=== PATIENT | female | born 1935 | race Caucasian/White ===

== ENCOUNTER 2016-12-02 16:09 | Inpatient (IN) | payer MEDICARE, MEDICAID ==
[~2016-12-02] VITALS: Ht 177.8 cm; Wt 93.1 kg
[~2016-12-02 16:09] MED LIST: ASP81TEC PO; CALC1CAP26 PO; Cefepime Inj 1,000 MG in Dextrose 5% Minibag Plus 50 ML IV ONE; DONE10TA21 PO; GLU500 PO; HALO1TAB PO; LOSA25TA21 PO; METO50TA PO; MULT-1007 PO; PRAV20TA2 PO; SENN15TA35 PO; TYL325 PO; [UNRECOGNIZED DRUG - CODE] PO
--- NOTE | 2016-12-02 16:22 | ED.REPORT ---
HPI-Altered Mental Status Date of Service Dec 02, 2016 ED Provider: Dr. Nair Pt is a 81 y/o female anticoagulated on Warfarin w/ a hx of PE, a-fib, severe systolic CHF with last EF 10-15%, dementia, NIDDM, HTN, CKD 3, prior hypercarbic hypoxic respiratory failure, presenting to the ED via EMS from [facility] due to decreased level of consciousness onset about 2 hours prior to arrival. 2 hours ago, staff noticed that the patient had a decreased LOC where she would open her eyes and look around but not respond appropriately. Shortly prior to arrival, she was rechecked by staff and found to have a GCS of 3 with agonal respirations. Upon arrival of EMS, she remained GCS of 3, with agonal respirations, and HR of 30 bpm. She was given 0.5 mg Atropine which raised and has sustained her HR in the mid 60s. She was intubated on route with 20 mg Etomidate and 100 mg succinylcholine. She did not resist the attempts to intubate or make any purposeful movements prior to sedatives being given but EMS decided to administer them to ensure sedation afterwards. She never received CPR. Of note, her code status was initially DNR and DNI but at some point that was crossed out and it was decided that she should be changed to FULL CODE. Nursing Notes Stated Complaint: STAT MEDICAL Nursing Notes Reviewed: Yes Allergies: Coded Allergies: No Known Allergies (Unverified Allergy, Unknown, 12/02/16) Scheduled Acetaminphen-Expunged Drug, Do Not Renew! (Acetaminphen-Expunged Drug, Do Not Renew!) 325 Mg Tablet 650 MG PO Q8 Aspirin-Expunged Drug, Do Not Renew! (Aspirin EC-Expunged Drug, Do Not Renew!) 81 Mg Tablet 81 MG PO DAILY DO NOT CRUSH Azithromycin 250 mg Prepack 6 Tabs (Zithromax 250 mg Prepack #6 Tabs) 250 Mg Tablet 250 MG PO DAILY FOR 4 DAYS Maycol Carb/Vitamin D3-Expunged, Do Not Renew! (CALCIUM 600/VIT D-Expunged, Do Not Renew!) 1 Each Capsule 1 EACH PO BID Donepezil-Expunged Drug, Do Not Renew! (Donepezil-Expunged Drug, Do Not Renew!) 10 Mg Tab.rapdis 10 MG PO AM Haloperidol-Expunged Drug, Do Not Renew! (Haldol-Expunged Drug, Do Not Renew!) 1 Mg Tab 0.5 MG PO HS Losartan-Expunged Drug, Do Not Renew! (Losartan-Expunged Drug, Do Not Renew!) 25 Mg Tablet 25 MG PO AM Metformin-Expunged Drug, Do Not Renew! (Metformin-Expunged Drug, Do Not Renew!) 500 Mg Tablet 500 MG PO DAILY Metoprolol Tart-Expunged Drug, Do Not Renew! (Metoprolol Tart-Expunged Drug, Do Not Renew!) 50 Mg Tablet 50 MG PO BID Multivitamin (Multi-Vitamin Daily) 1 Each Tablet 1 EACH PO AM Pravastatin-Expunged Drug, Do Not Renew! (Pravastatin-Expunged Drug, Do Not Renew!) 20 Mg Tablet 20 MG PO HS Sennosides-Expunged Drug, Do Not Renew! (Senna Soft-Expunged Drug, Do Not Renew! ) 15 Mg Tablet 8.6 MG PO AM General Time Seen by MD: 16:19 Chief Complaint Decreased responsiveness Hx Obtained From: EMS Arrived By: Ambulance Sudden in Onset?: No Onset Occurred: 1 - 4 hours ago Symptom Duration: Since onset Progression since Onset: Rapidly worsening Past Medical History Past Medical History Notes: ONLY HISTORY IS OBTAINED VIA OLD RECORDS PATIENT IS INTUBATED AND SEDATED Past Medical History Anticoagulated on Warfarin Atrial fibrillation Hx pulmonary embolism - January 2012 Severe systolic CHF with EF of 10-15% Type 2 diabetes Hypertension Chronic kidney disease stage 3 Hx small pericardial effusion History of hypercarbic hypoxic respiratory failure Hx pneumonia Hx UTI Past Surgical History Appendectomy. Hernia repair. Social History Other Social History: Lives in [facility] Unable to Obtain History Family history, Smoking history, Social history, Occupation, Ambulatory status Unable to Obtain Due to: AMS Review of Systems Unable to Obtain ROS Mental status, Intubated Neurologic: Reports: Change LOC Physical Exam Initial Vital Signs See RN paper sheet. Initial VS: Reviewed, Vital signs abnormal GENERAL: Comatose, GCS of 3, intubated, critically ill Head / Eyes: Atraumatic, Normocephalic, PERRL (3 mm bilat) Neck: Atraumatic, Supple Respiratory / Chest: Breath sounds NL, Breath sounds = bilat, No rales, No rhonchi, No wheezing, No stridor, No chest wall deformity Intubated Cardiovascular: Heart rate NL, Regular rhythm, Heart sounds NL, No murmurs NEURO: Comatose, GCS of 3 ENT: Airway patent, Mucous membranes moist Abdomen: Atraumatic, Soft Skin: Atraumatic, No rash Interpretation & Diagnostics Lab Results Interpretation Result Diagram: 12/02/16 1650 Test 12/02/16 16:50 12/02/16 17:34 Sodium Level 144mEq/L (134-144) Potassium Level 6.8mEq/L (3.5-5.2) Chloride Level 108mEq/L (97-108) Carbon Dioxide Level 13mmol/L (18-29) Blood Urea Nitrogen 138mg/dL (8-27) Creatinine 3.73mg/dL (0.57-1.00) Estimat Glomerular Filtration Rate 17mL/min (>59) Glucose Level 241mg/dL (60-99) Lactic Acid Level 4.9mmol/L (0.4-2.0) Calcium Level 8.2mg/dL (8.5-10.1) Total Bilirubin 1.0mg/dL (0.0-1.2) Aspartate Amino Transf (AST/SGOT) 210U/L (0-50) Alanine Aminotransferase (ALT/SGPT) 317U/L (0-32) Alkaline Phosphatase 116U/L (25-165) Total Protein 6.2g/dL (6.4-8.4) Albumin 3.5g/dL (3.4-5.0) Urine Color Yellow (YELLOW) Urine Appearance Hazy (CLEAR,HAZY) Urine pH 5.5 (5.0-8.0) Urine Specific [place] 1.020 (1.003-1.035) Urine Protein 30mg/dL (NEG,TRACE) Urine Glucose (UA) Negativemg/dL (NEGATIVE) Urine Ketones Negativemg/dL (NEGATIVE) Urine Occult Blood Small (NEGATIVE) Urine Nitrite Negative (NEGATIVE) Urine Bilirubin Negative (NEGATIVE) Urine Urobilinogen Normalmg/dL (NORMAL) Urine Leukocyte Esterase Large (NEGATIVE) Urine RBC 0-2/hpf (0-2) Urine WBC 11-50/hpf (0-5) Urine Epithelial Cells None/hpf (NONE-MOD) Urine Crystals None seen (NONE SEEN) Urine Bacteria Many/hpf (NONE-FEW) Urine Hyaline Casts None/lpf (NONE) Urine Granular Casts None seen (NONE SEEN) Urine Waxy Casts None seen (NONE SEEN) Urine Red Blood Cell Casts None seen (NONE SEEN) Urine White Blood Cell Casts None seen (NONE SEEN) Urine Mucus None seen (None Seen) Urine Trichomonas None seen (NONE SEEN) Urine Yeast None (NONE SEEN) Urinalysis Comment None Urine Culture Reflexed Indicated ECG Interpretation ECG Interpretation: Junctional rhythm rate 58 No prior available for comparison Time: 16:54 Interpreted by: ED physician Normal ECG Interpretation: No acute ischemic changes ABG Interpretation ABG Interpretation: DateTimeAnalyzed 16:57:00 -_ pH ____7.320 - 7.350 7.450 pCO2 ___27.1__ -mmHg 35.0 45.0 pO2 186 -mmHg 69.0 116 HCO3- ___13.6__ -mmol/L 22.0 26.0 ABE __-11.2__ -mmol/L -2.0 2.0 tHb ____5.7__ -g/dL O2Hb ___96.6__ -% COHb ____1.8__ -% MetHb ____1.0__ -% sO2 ___99.4__ -% FIO2 ___50.0__ -% PRVC 480 - PEEP ____5.0__ -cmH2O Set_RR ___18.0__ -b/min Exam Performed by: [facility] pract Exam Interpreted by: ED physician X-Ray Chest Interpretation Chest Xray Interpretation: IMPRESSION: Endotracheal tube is in expected position. Decreased lung volumes. Dictated by: Rl Mccollum M.D. on 12/02/2016 at 16:42 Approved by: Rl Mccollum M.D. on 12/02/2016 at 16:44 View: Portable, 1 view Interpretation / Wet Read by: Interpret - Radiologist CT Head Interpretation Pending Study: Head CT no contrast Interpretation / Wet Read by: Interpret - Radiologist Re-Eval/Medical Decision Med Decision/Clinical Course Within the past 10 minutes, 1809, I began to receive laboratory results including a very low hematocrit and a significantly elevated potassium in the setting of acute renal failure. Therapies commensurate with those findings have been initiated. CCU bed status is obtained and hospitalist is consulted and accepts admission. Source of Hx: Old records, EMS, Vp Production Re-Evaluation/Progress : Time of Eval: 16:32 Re-Evaluation/Progress Note: RN reports seeing short runs of V-fib on monitor although there is suspicion for movement artifact. Will review monitor history. Consultation : Referral / Consult Name: Heather Thacker DO Consulted With: Hospitalist Call Returned at: 18:15 College Coach: Will see patient, Accepts admit Counseled Regarding: Diagnosis, Lab results, Need for admission Patient Discharge & Departure Impression: Primary Impression: Respiratory failure Chronicity: acute Respiratory failure complication: unspecified whether with hypoxia or hypercapnia Qualified Code: J96.00 - Acute respiratory failure , unspecified whether with hypoxia or hypercapnia Additional Impressions: Metabolic acidosis Coma Coma depth: Joaquin coma 3-8 Coma timing: in the field (EMT or ambulance) Qualified Code: R40.2431 - Joaquin coma scale score 3-8, in the field [EMT or ambulance] Hyperkalemia Severe anemia Urinary tract infection Disposition: ADMITTED TO HOSPITAL Discharge Condition All VS Reviewed: Yes Condition: Critical Referrals: Stefan Avelar DO (PCP) Crit Care Except Billable Proc Time Spent: 30-74 minutes Services Performed: Patient management by me, Time spent at bedside, Reviewing test results, Reviewing imaging, Discussing patient care, Documentation in record Critical Care Notes: 45 minutes Scribe Attestation Portions of this note were transcribed by Justin Mckeon. I, Dr. Nair personally performed the history, physical exam and medical decision-making; I reviewed and confirmed the accuracy of the information in the transcribed note. copies to: Stefan Avelar Kirk H MD Dec 02, 2016 16:22 JUSTIN MCKEON Dec 02, 2016 16:28
--- NOTE | 2016-12-02 16:45 | DRSVH ---
PROCEDURE: X-RAY CHEST ONE VIEW, PORTABLE ([id number]) INDICATIONS: 81 year-old female with dyspnea and bradycardia. TECHNIQUE: One view of the chest was acquired. COMPARISON: [facility], , CHEST 1VW (PORTABLE), 02/24/2012, 10:46. [facility], CR, CHEST 1VW (PORTABLE), 02/22/2012, 7:22. [facility], , CHEST 1VW (PORTABLE), 02/20/2012, 6:45. FINDINGS: Surgical changes and devices: Endotracheal tube is present, with tip 5 cm above the cassidy. Cutaneous pacer pad is also present. Lungs and pleura: No pleural effusions or pneumothorax. Lung volumes are decreased, with bronchovasc ular crowding. Mediastinum: Mediastinal contours appear normal. Heart size is normal. Bones and chest wall: No suspicious bony lesions. Overlying soft tissues appear unremarkable. IMPRESSION: Endotracheal tube is in expected position. Decreased lung volumes. Dictated by: Rl Mccollum M.D. on 12/02/2016 at 16:42 Approved by: Rl Mccollum M.D. on 12/02/2016 at 16:44
--- NOTE | 2016-12-02 17:03 | ABG ---
DateTimeAnalyzed 16:57:00 -_ pH ____7.320 - 7.350 7.450 pCO2 ___27.1__ -mmHg 35.0 45.0 pO2 186 -mmHg 69.0 116 HCO3- ___13.6__ -mmol/L 22.0 26.0 ABE __-11.2__ -mmol/L -2.0 2.0 tHb ____5.7__ -g/dL O2Hb ___96.6__ -% COHb ____1.8__ -% MetHb ____1.0__ -% sO2 ___99.4__ -% FIO2 ___50.0__ -% PRVC 480 - PEEP ____5.0__ -cmH2O Set_RR ___18.0__ -b/min Drawn By JJ - Date/Time Notified____ 17:03:00 -_ Spontaneous_RR ___18.0__ -b/min Oxygen Device 1 VENTILATOR - Notified By JJ - Notified Whom DR STEVEN - B 756 -mmHg tO2 ____8.2__ -Vol% Aureliano test _Positive -
[2016-12-02] MEDS ORDERED: 0.9% Sodium Chloride 1,000 ML IV ONE (18:00)
[2016-12-02] MEDS ORDERED: Piperacillin-Tazo 3.375 Gm Inj 3.375 GM in Dextrose 5% Minibag Plus 50 ML IV ONE (18:00)
[2016-12-02 18:03] LABS: APPEARANCE,URINE HAZY (CLEAR,HAZY); COLOR,URINE YELLOW (YELLOW); OCCULT BLOOD,URINE SMALL (NEGATIVE); PH,URINE 5.5 (5.0-8.0); UROBILINOGEN,URINE NORMAL (NORMAL)
[2016-12-02] MEDS ORDERED: Insulin Human REGular-Omnicell 100 Unit/mL IV ONE (18:10)
[2016-12-02] MEDS ORDERED: Calcium GLUCOnate 10% (Gm) 1 Gm/10 mL Inj IVPUSH PRN (18:10)
[2016-12-02 18:25] LABS: BASOPHILS % (AUTO) 0.1 % (0-3); EOSINOPHILS % (AUTO) 0 % (0-5); MONOCYTES % (AUTO) 6.5 % (4-12); Mean Corpuscular Hemoglobin 22.4 pg (27.0-35.0); Mean Corpuscular Volume 80.7 fL (81-100); NEUTROPHILS % (AUTO) 84.6 % (40-74); Platelet Count 273 bil/L (150-400)
--- NOTE | 2016-12-02 18:32 | DRSVH ---
PROCEDURE: CT BRAIN WITHOUT CONTRAST ([id number]) INDICATIONS: altered LOC, COMA TECHNIQUE: Noncontrast 4.5 mm thick angled axial sections acquired from the foramen magnum to the vertex, with c oronal reformats. COMPARISON: [facility], CT, BRAIN W/O CONTRAST, 02/18/2012, 17:54. FINDINGS: Image quality: Excellent. CSF spaces: Basal cisterns are patent. No extra-axial fluid collections. The ventricles are symmet alea in size and shape. Brain: No intracranial bleeds or masses. There is cerebral volume loss for age, with resultant vent ricular and sulcal prominence. There are periventricular and deep white matter chronic small vessel ischemic changes. There is intracranial internal carotid artery atherosclerosis. Skull and face: Calvarium and visualized facial bones appear intact, without suspicious lesions. Sinuses: Visualized sinuses and mastoids are clear. IMPRESSION: Moderate microvascular atherosclerotic change in the deep white matter of each hemispher e but no acute disease is seen. No global climate change analyst time. Dictated by: Terry Lemus M.D. on 12/02/2016 at 18:30 Approved by: Terry Lemus M.D. on 12/02/2016 at 18:31
[2016-12-02] MEDS ORDERED: TIOT18CA3 IH (18:34)
[2016-12-02] MEDS ORDERED: WARF3TAB7 PO (18:34)
[2016-12-02] MEDS ORDERED: NA P133E23 RC (18:34)
[2016-12-02] MEDS ORDERED: WARF4TAB6 PO (18:34)
[2016-12-02] MEDS ORDERED: ACET325C PO (18:34)
[2016-12-02] MEDS ORDERED: MAGN400O4 PO (18:34)
[2016-12-02] MEDS ORDERED: WARF7.5T4 PO (18:34)
[2016-12-02] MEDS ORDERED: SPIR25TA3 PO (18:34)
[2016-12-02] MEDS ORDERED: ACET500C49 PO (18:34)
[2016-12-02] MEDS ORDERED: METF500T4 PO (18:34)
[2016-12-02] MEDS ORDERED: FURO-128 PO (18:34)
[2016-12-02] MEDS ORDERED: DONE10TA42 PO (18:34)
[2016-12-02] MEDS ORDERED: PRAV20TA2 PO (18:34)
[2016-12-02] MEDS ORDERED: CARV3.122 PO (18:34)
[2016-12-02] MEDS ORDERED: LOSA25TA21 PO (18:34)
[2016-12-02] MEDS ORDERED: DIGO125T73 PO (18:34)
[2016-12-02] MEDS ORDERED: BISA10SU61 RC (18:34)
[2016-12-02 18:38] LABS: INR 4.4 ratio
--- NOTE | 2016-12-02 18:39 | DRSVH ---
PROCEDURE: X-RAY CHEST ONE VIEW, PORTABLE ([id number]) INDICATIONS: OG PLACEMENT TECHNIQUE: One view of the chest was acquired. COMPARISON: None. FINDINGS: Surgical changes and devices: The gastric tube is in normal position. Bones and chest wall: No suspicious bony lesions. Overlying soft tissues appear unremarkable. IMPRESSION: Gastric tube in normal position. Dictated by: Terry Lemus M.D. on 12/02/2016 at 18:37 Approved by: Terry Lemus M.D. on 12/02/2016 at 18:37
[2016-12-02] MEDS ORDERED: Calcium GLUCOnate 10% 1 Gm/50 mL NS IV ONE ×2 (18:40)
[2016-12-02] MEDS ORDERED: Ondansetron 2 mg/mL 2 mL Inj IVPUSH PRN (18:50)
[2016-12-02] MEDS ORDERED: Senna-Docusate 8.6-50 mg Tablet PO PRN (18:50)
[2016-12-02] MEDS ORDERED: Polyethylene Glycol (PEG) 17 Gm Powder PO PRN (18:50)
[2016-12-02] MEDS ORDERED: Alum-Mag Hydrox-Simeth 30 mL Suspension PO PRN (18:50)
[2016-12-02 19:07] LABS: TROPONIN T 0.084 ug/L (0.0-0.011)
[2016-12-02] MEDS ORDERED: Propofol Inj 1,000,000 MCG in IV Premix 1 EACH IV SCH (19:07)
[2016-12-02] MEDS ORDERED: fentaNYL 2,500 mCg/250 mL 2,500 MCG in IV Premix 1 EACH IV SCH (19:07)
[2016-12-02] MEDS ORDERED: Propofol 10,000 mCg/mL 100 mL Inj ONE (19:26)
[2016-12-02 19:45] VITALS: BP 137/93; O2SAT 94
[2016-12-02 19:50] VITALS: BP 122/54; PULSE 72; RESP 20; O2SAT 98
[2016-12-02 20:18] LABS: BASOPHILS % (AUTO) 0.1 % (0-3); EOSINOPHILS % (AUTO) 0.1 % (0-5); MONOCYTES % (AUTO) 7.1 % (4-12); Mean Corpuscular Hemoglobin 22.7 pg (27.0-35.0); Mean Corpuscular Volume 80.5 fL (81-100); NEUTROPHILS % (AUTO) 79.4 % (40-74); Platelet Count 225 bil/L (150-400)
[2016-12-02 20:19] VITALS: BP 103/85; PULSE 53; RESP 18
[2016-12-02] MEDS ORDERED: DOBUTamine 500 mg/250 D5W 500,000 MCG in IV Premix 1 EACH IV SCH (20:39)
[2016-12-02] MEDS ORDERED: DOPamine 800 mg/250 mL D5W Premix IV ONE (20:42)
[2016-12-02] MEDS ORDERED: Pantoprazole 4 mg/mL 10 mL Inj IVPUSH SCH (20:51)
[2016-12-02] MEDS ORDERED: Phytonadione (Adult) 10 MG in Dextrose 5%-Pha MIX 50 ML IV ONE (21:00)
[2016-12-02] MEDS ORDERED: Albuterol 2.5 mg/3 mL Inhalation Solution NEB ONE (21:00)
[2016-12-02] MEDS ORDERED: Phytonadione (Adult) 5 MG in 0.9% Sodium Chloride-Pha MIX 50 ML IV ONE (21:05)
[2016-12-02] MEDS ORDERED: DOPamine 800 mg/250 mL D5W 800,000 MCG in IV Premix 1 EACH IV SCH (21:10)
--- NOTE | 2016-12-02 21:28 | DRSVH ---
PROCEDURE: X-RAY CHEST ONE VIEW, PORTABLE ([id number]) INDICATIONS: line placement TECHNIQUE: One view of the chest was acquired. COMPARISON: None. FINDINGS: Surgical changes and devices: Nasogastric tube in normal position. The patient appears rotated left zamarripa. An endotracheal tube appears in normal position, considering rotation. Right internal jugular central line crosses slightly from right to left but likely within the normal position considering p atient rotation. Lungs and pleura: No pleural effusions or pneumothorax. Lungs are abnormal, with dense pneumonia ri ght mid and lower lung and retrocardiac left lower lobe dense pneumonia. Mediastinum: Mediastinal contours appear normal. Heart size is normal. Bones and chest wall: No suspicious bony lesions. Overlying soft tissues appear unremarkable. IMPRESSION: Bilateral pneumonia right greater than left, lines and tubes appear in normal position c onsidering patient rotation leftward. Dictated by: Terry Lemus M.D. on 12/02/2016 at 21:25 Approved by: Terry Lemus M.D. on 12/02/2016 at 21:27
[2016-12-02] MEDS: Propofol Inj 1,000,000 MCG in IV Premix 1 EACH IV SCH (21:29)
--- NOTE | 2016-12-02 21:29 | ABG ---
DateTimeAnalyzed 21:22:00 -_ pH ____7.384 - 7.350 7.450 pCO2 ___26.5__ -mmHg 35.0 45.0 pO2 159 -mmHg 69.0 116 HCO3- ___15.5__ -mmol/L 22.0 26.0 ABE ___-8.5__ -mmol/L -2.0 2.0 tHb ____5.9__ -g/dL O2Hb ___97.1__ -% COHb ____1.7__ -% MetHb ____0.9__ -% sO2 ___99.7__ -% FIO2 ___50.0__ -% PEEP ____5.0__ -cmH2O Set_RR ___18.0__ -b/min Vt __480.0__ -L Drawn By LT - Date/Time Notified____ 21:29:00 -_ Notified By LT - Notified Whom LT - B 757 -mmHg tO2 ____8.4__ -Vol% Aureliano test _Positive -
--- NOTE | 2016-12-02 21:40 | PCM.HPMED ---
Subjective Date of Service Dec 02, 2016 Primary Provider: Admitting Physician: Serena Benz DO Primary Care Physician: Stefan Avelar DO Attending Physician: Serena Benz DO Admit Status: From the Emergency Department Chief Complaint: Decreased responsiveness History of Present Illness: Reina Styles is a 81 year old lady with a history of dementia, Afib chronically anticoagulated on warfarin, DM type 2, CKD3, HTN, pulmonary embolism , and systolic heart failure with an EF of 10-15% five years ago per our records who presented to the ED from [facility] because she was becoming unarousable. due to decreased level of consciousness onset about 2 hours prior to arrival. 2 hours ago, staff noticed that the patient had a decreased LOC where she would open her eyes and look around but not respond appropriately. Shortly prior to arrival, she was rechecked by staff and found to have a GCS of 3 with agonal respirations. Upon arrival of EMS, she remained GCS of 3, with agonal respirations, and HR of 30 bpm. She was given 0.5 mg Atropine which raised and has sustained her HR in the mid 60s. She was intubated on route with 20 mg Etomidate and 100 mg succinylcholine. She did not resist the attempts to intubate or make any purposeful movements prior to sedatives being given but EMS decided to administer them to ensure sedation afterwards. She never received CPR. Of note, her code status was initially DNR and DNI but at some point that was crossed out and it was decided that she should be changed to FULL CODE. In the ED, Labs: sodium 144, potassium 6.8, chloride 108, bicarb 13, BUN 138, creatinine 3.78, serum glucose 241, calcium 8.2, AST/ALT 210/317, total protein 6.2, lactic acid 4.9. UA large leukocyte esterase, negative nitrite, 11-50 wbc, many bacteria, culture pending. INR 4.40. PT 48.5. urine culture, blood culture pending. ECG Interpretation: Junctional rhythm rate 58No prior available for comparison. No acute ischemic changes ABG: pH 7.32, pCO2 27.1, pO2 186, bicarb 13.6, sO2 99.4%. PRVC: FiO2 50%, peep 5 , RR 18, TV 480 Review of Systems: Unable to perform complete review of systems secondary to patient condition. Allergies Coded Allergies: No Known Allergies (Unverified Allergy, Unknown, 12/03/16) Home Medications Review of [facility] records, most recent office visit 09/05/16: Acetaminophen ER 650mg PO Q8 prn Aspirin 81mg PO daily Carvedilol 3.125mg PO BID Coumadin 2mg PO daily with 5mg tablet = 7mg Coumadin 5mg PO 2 times per week with 2mg tablet = 7mg Coumadin 6mg PO 5x per week Cozaar 25mg PO daily Digoxin 125mcg PO daily Denepezil 10mg PI Qhs Furosemide 40mg PO daily Metformin hydrochloride 500mg PO daily Pravastatin 20mg PO daily Spiriva with HandiHaler 18mcg inhale 1 capsule daily Spironolactone 12.5mg PO daily PMH Hypertension Dementia Atrial fibrillation anticoagulated on Warfarin Pulmonary embolism - January 2012 Severe systolic CHF with EF of 10-15% Chronic kidney disease stage 3 Type 2 diabetes, non-insulin using Obesity w/concern for untreated sleep apnea noted on admission five years ago History of pericardial effusion History of hypercarbic hypoxic respiratory failure Surgical History Appendectomy Hernia repair Family History Unable to obtain due to patient condition. Social History Hx Alcohol Use: No Hx Substance Use: No Smoking Status: Unknown if Ever Smoker (COPD noted on outpatient records.) Living Arrangement: Jail Facility ([facility]) Exam Vital Signs Vital Signs Date Time Temp Pulse Resp B/P Pulse Ox O2 Delivery O2 Flow Rate FiO2 12/02/16 20:19 36.0 53 18 103/85 12/02/16 19:50 36.8 72 20 122/54 98 Room Air 12/02/16 19:45 76 137/93 94 50 Exam General: Chronically ill-appearing and obese elderly woman intubated and sedated. HEENT: Normocephalic, atraumatic. External ears without defect. PERRLA, scleral without icterus, conjunctivae pale. Poor dentition. Tongue, buccal mucosa erythematous with white plaques. Neck: Supple with full range of motion. +JVD. No lymphadenopathy or thyromegaly. Cardiovascular: Irregularly irregular and bradycardic but without murmurs or rubs appreciated. Pulmonary: Intubated/mechanically ventilated. Symmetric chest rise with equal air entry b/l. Lungs sounds diminished throughout and coarse, no wheezing or crackles heard. Abdomen: Bowel tones diminished. Soft, nondistended does not appear tender although this is difficult to assess as patient is sedated. No hepatosplenomegaly or masses appreciated. Extremities: No edema, cyanosis or clubbing. Flattened arch of right foot without ulceration. Skin: Pale with decreased turgor and normal texture. No rash, ulcers, or subcutaneous nodules appreciated. Neurological: Unable to asses due to patient sedation. Pupils are equal, round and reactive to light. Psychiatric: Unable to asses secondary to patient condition. History of dementia. Lab and Diagnostics Labs Laboratory Tests Test 12/02/16 16:50 12/02/16 17:34 12/02/16 20:04 White Blood Count th/mm3 (3.8-10.1) 11.2th/mm3 (3.8-10.1) Corrected White Blood Count 8.8th/mm3 (3.8-10.1) Red Blood Count 2.59mil/mm3 (3.90-5.20) 2.56mil/mm3 (3.90-5.20) Hemoglobin 5.8g/dL (12.0-15.6) 5.8g/dL (12.0-15.6) Hematocrit 20.9% (35.0-46.0) 20.6% (35.0-46.0) Mean Corpuscular Volume 80.7fL (81-100) 80.5fL (81-100) Mean Corpuscular Hemoglobin 22.4pg (27.0-35.0) 22.7pg (27.0-35.0) Mean Corpuscular Hemoglobin Concent 27.8% (32.0-37.0) 28.2% (32.0-37.0) Red Cell Distribution Width 16.8% (12.3-15.4) 16.8% (12.3-15.4) Platelet Count 273bil/L (150-400) 225bil/L (150-400) Neutrophils (%) (Auto) 84.6% (40-74) 79.4% (40-74) Lymphocytes (%) (Auto) 8.5% (14-46) 12.0% (14-46) Monocytes (%) (Auto) 6.5% (4-12) 7.1% (4-12) Eosinophils (%) (Auto) 0% (0-5) 0.1% (0-5) Basophils (%) (Auto) 0.1% (0-3) 0.1% (0-3) Nucleated Red Blood Cells 5/100 WBC (0-24) Prothrombin Time 48.5sec (8.1-12.5) Prothromb Time International Ratio 4.40ratio Sodium Level 144mEq/L (134-144) 145mEq/L (134-144) Potassium Level 6.8mEq/L (3.5-5.2) 5.5mEq/L (3.5-5.2) Chloride Level 108mEq/L (97-108) 108mEq/L (97-108) Carbon Dioxide Level 13mmol/L (18-29) 14mmol/L (18-29) Blood Urea Nitrogen 138mg/dL (8-27) 132mg/dL (8-27) Creatinine 3.73mg/dL (0.57-1.00) 3.39mg/dL (0.57-1.00) Estimat Glomerular Filtration Rate 17mL/min (>59) 19mL/min (>59) Glucose Level 241mg/dL (60-99) 236mg/dL (60-99) Lactic Acid Level 4.9mmol/L (0.4-2.0) 4.6mmol/L (0.4-2.0) Calcium Level 8.2mg/dL (8.5-10.1) 8.5mg/dL (8.5-10.1) Total Bilirubin 1.0mg/dL (0.0-1.2) 0.9mg/dL (0.0-1.2) Aspartate Amino Transf (AST/SGOT) 210U/L (0-50) 309U/L (0-50) Alanine Aminotransferase (ALT/SGPT) 317U/L (0-32) 386U/L (0-32) Alkaline Phosphatase 116U/L (25-165) 115U/L (25-165) Troponin T 0.084ug/L (0.0-0.011) 0.081ug/L (0.0-0.011) Total Protein 6.2g/dL (6.4-8.4) 6.1g/dL (6.4-8.4) Albumin 3.5g/dL (3.4-5.0) 3.6g/dL (3.4-5.0) Urine Color Yellow (YELLOW) Urine Appearance Hazy (CLEAR,HAZY) Urine pH 5.5 (5.0-8.0) Urine Specific [place] 1.020 (1.003-1.035) Urine Protein 30mg/dL (NEG,TRACE) Urine Glucose (UA) Negativemg/dL (NEGATIVE) Urine Ketones Negativemg/dL (NEGATIVE) Urine Occult Blood Small (NEGATIVE) Urine Nitrite Negative (NEGATIVE) Urine Bilirubin Negative (NEGATIVE) Urine Urobilinogen Normalmg/dL (NORMAL) Urine Leukocyte Esterase Large (NEGATIVE) Urine RBC 0-2/hpf (0-2) Urine WBC 11-50/hpf (0-5) Urine Epithelial Cells None/hpf (NONE-MOD) Urine Crystals None seen (NONE SEEN) Urine Bacteria Many/hpf (NONE-FEW) Urine Hyaline Casts None/lpf (NONE) Urine Granular Casts None seen (NONE SEEN) Urine Waxy Casts None seen (NONE SEEN) Urine Red Blood Cell Casts None seen (NONE SEEN) Urine White Blood Cell Casts None seen (NONE SEEN) Urine Mucus None seen (None Seen) Urine Trichomonas None seen (NONE SEEN) Urine Yeast None (NONE SEEN) Urinalysis Comment None Urine Culture Reflexed Indicated Procalcitonin 0.19ng/mL (0.00-0.08) Result Diagram: 12/02/16 1650 12/02/16 1650 Microbiology 12/02/16 Blood Culture- pending 12/02/16 Urine Culture- pending 12/02/16 MRSA screen- pending X-Rays, CTs and MRIs (12/02/16) X-RAY CHEST ONE VIEW, PORTABLE INDICATIONS: 81 year-old female with dyspnea and bradycardia. IMPRESSION: Endotracheal tube is in expected position. Decreased lung volumes. Dictated and approved by: Rl Mccollum M.D. on 12/02/2016 at 16:42 (12/02/16) CT BRAIN WITHOUT CONTRAST INDICATIONS: altered LOC, COMA IMPRESSION: Moderate microvascular atherosclerotic change in the deep white matter of each hemisphere but no acute disease is seen. No changeover operator time. Dictated and approved by: Terry Lemus M.D. on 12/02/2016 at 18:30 (12/02/16) X-RAY CHEST ONE VIEW, PORTABLE INDICATIONS: line placement IMPRESSION: Bilateral pneumonia right greater than left, lines and tubes appear in normal position considering patient rotation leftward. Dictated and approved by: Terry Lemus M.D. on 12/02/2016 at 21:25 Assessment & Plan 81 year-old lady with a history of Afib chronically anticoagulated on warfarin, Shock. Present on admission. Active. -Uncertain etiology. Possibly cardiogenic and/or septic shock. Acute hypercarbic hypoxic respiratory failure. Present on admission. Active. -Uncertain etiology. Patient with history of COPD outpatient records note COPD. -Patient with previous admission 5years ago for acute respiratory failure. Attributed at that time in part to obesity hypoventilation syndrome and untreated sleep apnea. -CO2 retention based on evidence on ABG, most consistent with obesity hypoventilation syndrome. Acute on chronic decompensated heart failure. Present on admission. Active. -Patient with hx of systolic dysfunction. Most recent echocardiogram is five years old (2011) and showed an EF of 10-15%. -Fluid resuscitation initiated for presumed septic shock. Pt received 1L NS. -Currently requiring pressor support with Dopamine. -Held home carvedilol, losartan, digoxin, furosemide and spironolactone for hypotension and bradycardia. -Echocardiogram ordered -Cardiology consulted, discussed initial plan. Will see in am. Recs appreciated Severe anemia, likely acute on chronic. Present on admission. Active. -Uncertain etiology. Possibly due to acute blood loss secondary to GI bleed in setting of CKD stage 3. Patient unconscious at presentation and unable to provide additional history. -No obvious source for bleeding on exam. -Hb 5.8 at presentation, transfused 2units pRBCs -CT abd/pelvis pending -Monitor H/H -Transfusion threshold Hb < 7.0 Acute on chronic kidney disease stage 3. Present on admission. Active. -Likely secondary to diabetes and longstanding hypertension. Creatinine at presentation 3.71 with unknown baseline. Previous admission 5 years ago with BUN /Cr of -Consulted nephrology and discussed initial plan. Will see in am. Recs appreciated Hyperkalemia, acute. Present on admission. Active. -Likely multifactorial, secondary to acute on chronic renal failure, lactic acidosis and medications (losartan, spironolactone). -Potassium 6.8 at presentation repeat 5.5. ECG as above. -Pt received calcium gluconate, 10U insulin, 10mg albuterol and 30gm Kayexalatex2 -Held home furosemide in setting of hypotension and shock. -Nephrology consulted and plan to see tomorrow. -BMP q3h Anion gap metabolic acidosis. Present on admission. Active -Likely secondary to lactic acidosis and acute on chronic renal failure. - Atrial fibrillation anticoagulated on Warfarin, chronic. Present on admission. Active. -Patient chronicaly anticoagulated on Warfarin with supratherapeutic INR on admission. -10mg IV vitamin K ordered -Warfarin held Supra-therapeutic INR, acute. Present on admission. Active. -INR 4.4 on admission -Warfarin held Type 2 diabetes mellitus, chronic. Present on admission. Active. -Serum glucose 236 on admission. Currently treated with Metformin, non-insulin using. -HbA1c pending -Correctional regular insulin ordered Elevated troponin, likely chronic. Present on admission. Active. -Likely secondary to stress and CKD. ECG without acute ischemic changes. -0.084 on admission -Trend troponin Urinary tract infection, acute. Present on admission. Active. -Unable to assess for UTI symptoms due to patient condition. Patient's brother present at time of admission and reports a history of UTIs. -UA consistent with infection, urine culture pending -Pt started on zosyn empirically on admission. Will change to cefepime due to poor renal function. -Continue broad spectrum antibiotics in setting of shock and pending cultures. Hypertension, chronic. Present on admission. -Outpatient antihypertensive medications per review of [employer] include: -Held home antihypertensives for Carvedilol 3.125mg PO BID Digoxin 125mcg PO daily Furosemide 40mg PO daily Spironolactone 12.5mg PO daily History of dementia. Present on admission. Presumed stable. -Held donepezil CODE STATUS: LIMITED INTERVENTIONS. Discussed code status with patient's brother and confirm NO CHEST COMPRESSION and short term INTUBATION only. GI Prophylaxis: IV protonix as above for probable GI bleed DVT Prophylaxis: Sub-q Heparin held on admission for supratherapeutic INR of 4.4. PRN: Acetaminophen-fever/headache/mild/moderate pain Bowel regimen, as needed. Disposition: Patient admitted under inpatient status with expected length of stay > 2 midnights for severity of present symptoms, complexities of treatment plan and risk for adverse event. VTE Mechanical Devices: Intermittant Pneumatic CD Resuscitation Status: Limited Interventions (No chest compressions) Time spent 35 minutes of critical care time spend with plan development and patient management. Attending Statement The patient was seen and examined together with house staff on 12/02/2016 and I agree with the history, exam and plan as outlined in the note above. Viktoria Huynh DO Dec 02, 2016 19:31 Serena Benz DO Dec 03, 2016 02:31 GI Prophylaxis: IV protonix as above for probable GI bleed DVT Prophylaxis: Sub-q Heparin held on admission for supratherapeutic INR of 4.4. PRN: Acetaminophen-fever/headache/mild/moderate pain Bowel regimen, as needed. Disposition: Patient admitted under inpatient status with expected length of stay > 2 midnights for severity of present symptoms, complexities of treatment plan and risk for adverse event. VTE Mechanical Devices: Intermittant Pneumatic CD Resuscitation Status: Limited Interventions (No chest compressions) Viktoria Huynh DO Dec 02, 2016 19:31
[2016-12-02] MEDS: Chlorhexidine 0.12% 15 mL Oral Solution MT SCH (22:50)
[2016-12-02] MEDS: Linezolid Inj 600 MG in IV Premix 1 EACH IV SCH (22:56)
[2016-12-02 23:03] LABS: Magnesium 3.2 mg/dL (1.6-2.6); Phosphorus 7.3 mg/dL (2.5-4.9)
[2016-12-02 23:05] VITALS: BP 134/53; PULSE 73; RESP 18
[2016-12-03] VITALS (13 sets, daily range): BP systolic 98–120; BP diastolic 43–78; PULSE 54–88; RESP 14–18; O2SAT 97–100
[2016-12-03] MEDS: Propofol Inj 1,000,000 MCG in IV Premix 1 EACH IV SCH ×3 (00:15→21:24)
[2016-12-03] MEDS: Chlorhexidine 0.12% 15 mL Oral Solution MT SCH ×7 (01:30→23:35)
[2016-12-03] MEDS ORDERED: Cefepime Inj 1,000 MG in Dextrose 5% Minibag Plus 50 ML IV ONE (03:00)
--- NOTE | 2016-12-03 04:39 | ABG ---
DateTimeAnalyzed 04:31:00 -_ pH ____7.419 - 7.350 7.450 pCO2 ___25.5__ -mmHg 35.0 45.0 pO2 118 -mmHg 69.0 116 HCO3- ___16.2__ -mmol/L 22.0 26.0 ABE ___-6.9__ -mmol/L -2.0 2.0 tHb ____9.0__ -g/dL 12.0 18.0 O2Hb ___96.0__ -% COHb ____1.7__ -% 0.0 1.5 MetHb ____1.1__ -% 0.4 1.5 sO2 ___98.8__ -% FIO2 ___40.0__ -% PEEP ____5.0__ -cmH2O Set_RR ___18.0__ -b/min Vt __480.0__ -L Drawn By LT - Date/Time Notified____ 04:37:00 -_ Spontaneous_RR ___18.0__ -b/min Notified By LT - Notified Whom _RYAN, RN - B 757 -mmHg tO2 ___12.4__ -Vol% Aureliano test N/A -
--- NOTE | 2016-12-03 05:10 | NUR ---
Admission Pt admitted to CCU room 2017 from ED at 1930. Pt accompanied by ED RN. Pt ventilated, sedated, bradycardic. Moran, OG, ET tube all patent. Pt trending towards hypotension. MD at bedside. Decision made to place central line as one peripheral line was bad, only one peripheral remaining, and right Humoral IO will need to soon be removed. Triple lumen Right IJ placed by Dr. Benz with ER MD assistance. Pt taken down to CT for Abd/Pelvis scan. Radiologist called with report of abdominal mass and possible acute cholecystitis. Dr. Huynh paged to make aware and later gave faxed report to her. Critical Labs: INR, Troponin, BUN, Potassium, Hgb. MD aware. Pt given 2 Units of PRBCs, (2 remain on hold in the Blood Bank) Vitamin K IV, Kayexelate 30grams via OG x2 (checked with MD and okay to give via OG or Rectally) ABG: Morning abg resulted in decrease of rate from 18 to 14 and MD made aware o f HCO3 continuing to be low. MRSA swab collected and sent down to lab by monitoring specialist.
--- NOTE | 2016-12-03 05:16 | NUR ---
[facility] Early referral to [facility] made. Pt a potential organ donor at this time. Day shift to further evaluate potential for donation should the patient not survive this admission.
[2016-12-03] MEDS: Norepineph 8,000 mCg/250 mL NS 8,000 MCG in IV Premix 1 EACH IV SCH (05:34)
--- NOTE | 2016-12-03 05:38 | PCM.PROC ---
Procedure Note Date of Service: Dec 02, 2016 Pre Procedure Diagnosis: shock Procedure: right IJ Indication for Procedure: shock, access, monitoring Procedure Details: Ultrasound-guided Right internal jugular central line placement. ESTIMATED BLOOD LOSS 5 mL. COMPLICATIONS None. INDICATIONS FOR PROCEDURE The patient is a 81-year-old female admitted with shock, septic / cardiogenic. The patient is in need of large bore IV access for administration of fluids, including blood products and vasoactive drugs, possible transvenous cardiac pacing and CVP monitoring for hemodynamic instability. DESCRIPTION OF PROCEDURE IN DETAIL The patient was lying in the trendelenburg position with head turned 30 degrees away from the insertion site. The skin was thoroughly sponged with chlorhexidine and allowed to dry. All persons involved were shielded with hairnets, facemasks and sterile gowns. With sterile- gloved hands the right neck area was draped with the large disposable sterile field provided in the pre-manufactured kit. The internal jugular vein was identified on ultrasound from the angle of the mandible down into the supraclavicular fossa using the linear ultrasound probe in the transverse orientation. The carotid artery was identified. The internal jugular vein was then placed in the center of the ultrasound field and compressed for patency. A movement artifact was identified as the needle was advanced through the skin and advanced toward the vessel. A real time hyperechoic signal revealed visualization of vascular needle entry into the lumen as blood was noted to flashback in the syringe. The needle was then held in place while the guide wire was advanced. The needle was then removed. Direct visualization of guide wire location within the vein was noted on ultrasound indicating proper placement. A skin dilator was advanced over the guidewire and removed, and the triple-lumen catheter was then advanced over the guide wire into proper position. The guide wire was removed and discarded. The ports were aspirated which showed good blood return and then carefully flushed with normal saline. The catheter was stabilized. A sterile bioocclusive dressing was placed over the catheter, including the insertion site. The patient tolerated the procedure well. A chest x-ray was ordered for position confirmation. copies to: Wang Corado Lauren E DO Dec 03, 2016 05:38
[2016-12-03 05:59] LABS: Magnesium 2.9 mg/dL (1.6-2.6)
[2016-12-03] MEDS ORDERED: Dextrose 10% 1,000 ML IV PRN ×2 (06:14→19:02)
[2016-12-03] MEDS ORDERED: Insulin Human REGular Inj 100 UNIT in 0.9% Sodium Chloride-Pha MIX 100 ML IV SCH ×2 (06:14→19:02)
--- NOTE | 2016-12-03 09:01 | DRSVH ---
PROCEDURE: CT ABDOMEN AND PELVIS WITHOUT CONTRAST ([id number]) INDICATIONS: POSSIBLE GI BLEED TECHNIQUE: Noncontrast 5 mm thick sections acquired from the diaphragms to the symphysis. 5 mm coronal and sagi ttal reformats were then performed. For radiation dose reduction, the following was used: automated exposure control, adjustment of mA and/or kV according to patient size. COMPARISON: [facility], CT, CT ABD PELVIS WO CON, 11/16/2015, 15:38. FINDINGS: Image quality: Excellent. ABDOMEN: Lung bases: There is a small right low density pleural effusion. Dense consolidation is present in th e dependent lung bases bilaterally. The heart is enlarged. No pericardial effusion. Solid organs: Liver and spleen are normal in size. 2 gallstones measuring over 3 cm in diameter are present within the gallbladder fundus. The gallbladder is distended, the wall is thickened, and there is pericholecystic fluid. Pancreas is normal in contours. No adrenal nodules. The right kidney is n ormal in size without hydronephrosis or nephrolithiasis. There is a large left staghorn calculus with moderate renal atrophy. A low density exophytic cystic lesion is also present off the mid pole. Peritoneum and bowel: An NG tube is present with the tip in the gastric fundus. Unenhanced bowel loop s demonstrate overall normal wall thickness and caliber. Questionable thickening in the midportion of the ascending colon could be associated with the mass, although no discrete masses visualized. The a ppendix is not visualized; however there is no discrete right lower quadrant fluid or fat stranding t o suggest acute appendicitis. There is presacral soft tissue thickening which appears increased in ex tent when compared with the study dated 11/16/15. For example, the AP diameter on the current study is 2.3 cm in diameter and was 2.0 cm on the study dated 11/16/15. There is a small amount of free low de nsity pelvic fluid. Nodes and vessels: No retroperitoneal or mesenteric adenopathy by size criteria. Aorta and inferior vena cava are normal in caliber. There are scattered atheromatous calcifications throughout the aor ta and iliac arteries bilaterally. Miscellaneous: No ventral hernias. PELVIS: Genitourinary: A Moran catheter is present. Gas within the bladder is likely secondary to catheteriza tion. Uterus and ovaries are definitive. Calcified fibroids are noted within the uterine body. Miscellaneous: No inguinal hernias or adenopathy. Bones: No suspicious bony lesions. No vertebral body compression fractures. IMPRESSION: 1. Right pleural effusion and bibasilar consolidation or atelectasis. Aspiration/infection should be considered in the differential. 2. Cholelithiasis with gallbladder wall thickening or pericholecystic fluid. These findings are suspi cious for acute cholecystitis. Right upper quadrant ultrasound recommended to further characterize fi ndings. 3. Large left staghorn calculus and renal atrophy. 4. Questionable thickening of the ascending colon. Mass cannot be excluded. Direct visualization charmaine mmended. These findings are concordant with the overnight interpretation. 5. Increased presacral soft tissue thickening when compared with the study dated 11/16/15. Neoplasm ca nnot be excluded and direct visualization is recommended. Please note, this finding was not described on the overnight interpretation. Dictated by: Steph Chowdhury M.D. on 12/03/2016 at 8:48 Approved by: Steph Chowdhury M.D. on 12/03/2016 at 8:59
[2016-12-03] MEDS: Famotidine Inj 20 MG in IV Premix 1 EACH IV SCH (09:47)
--- NOTE | 2016-12-03 10:05 | PCM.CONPAL ---
Date of Service Dec 03, 2016 Date of Hospital Admission: Dec 02, 2016 at 18:19 Date of Palliative Consult: Dec 03, 2016 Requesting Provider: Heather Thacker DO Reason Palliative Care Consult: Goals of Care Discussion Hospital Unit @time of consult: Critical Care Palliative Care Recommendation 81-year-old female with advanced dementia, severe CHF with EF 10-15%, chronic full anticoagulation secondary to atrial fibrillation and PE, chronic renal failure, etc. admitted with altered level of consciousness, respiratory failure , probable sepsis, hypotension, severe anemia, renal failure, etc. Palliative medicine consulted to assist family in determination of goals of care in the setting of a internally inconsistent POLST, and to help to clarify wishes for ongoing care Summary of palliative recommendations: -Symptom management (Pain/other)- continued management per her medical/critical care teams -DPOA/Advanced Directives/POLST- consistent with conversations with her brother/ POA Jorge Luis, she is now no CPR/no defibrillation but will continue mechanical ventilation and other treatments in hopes of recovery. I advised Jorge Luis that her prognosis is very poor given her multiple comorbidities and he indicated understanding this but felt that it was necessary to "give her a chance". -Family/emotional support- palliative team will continue to follow, provide support, and assist the family in setting realistic goals for care. If she survives this hospitalization, will plan on generating a new POLST at time of discharge that reflects her family's wishes current at that time Addend: returned at 1445 when family (brother and grandson) arrived- reviewed status with them again in detail, answering questions they had. Discussed code status and they confirm no CPR/no defib but wish all other care for now Additional Medical Diagnoses with primary management by Hospitalist team include : Shock. Present on admission. Active. Possible pneumonia. Possible acute cholecystitis. Possible UTI/pyelonephritis. All POA Acute hypercarbic hypoxic respiratory failure. Present on admission. Active. Acute on chronic decompensated heart failure. Present on admission. Active. Severe anemia, likely acute on chronic. Present on admission. Active. Acute on chronic kidney disease stage 3. Present on admission. Active. Hyperkalemia, acute. Present on admission. Active. Anion gap metabolic acidosis. Present on admission. Active Atrial fibrillation anticoagulated on Warfarin, chronic. Present on admission. Active. Supra-therapeutic INR, acute. Present on admission. Active. Type 2 diabetes mellitus, chronic. Present on admission. Active. Elevated troponin, likely chronic. Present on admission. Active. Hypertension, chronic. Present on admission. History of dementia, severe (FAST 7-C). Present on admission. Presumed stable. Problems: End of Life Preferences No CPR/no defibrillation/other treatments allowed for now Goals of Care Patient's family hopes she recovers to return to her SNF in premorbid state Disposition To be determined Resuscitation Status Resuscitation Status: Limited Interventions (No chest compressions/no defibrillation) POLST Updates/Changes Previous POLST?: Yes POLST Last Review Date: Dec 03, 2016 POLST Review Outcome: Form Voided . Advanced Care Planning Address: POLST, Code status change Pain: None Symptom management: Drowsiness/sleepiness, Dyspnea Pt History History of Present Illness Per admission H&P: Riena Styles is a 81 year old lady with a history of dementia, Afib chronically anticoagulated on warfarin, DM type 2, CKD3, HTN, pulmonary embolism , and systolic heart failure with an EF of 10-15% five years ago per our records who presented to the ED from [facility] because she was becoming unarousable. due to decreased level of consciousness onset about 2 hours prior to arrival. 2 hours ago, staff noticed that the patient had a decreased LOC where she would open her eyes and look around but not respond appropriately. Shortly prior to arrival, she was rechecked by staff and found to have a GCS of 3 with agonal respirations. Upon arrival of EMS, she remained GCS of 3, with agonal respirations, and HR of 30 bpm. She was given 0.5 mg Atropine which raised and has sustained her HR in the mid 60s. She was intubated on route with 20 mg Etomidate and 100 mg succinylcholine. She did not resist the attempts to intubate or make any purposeful movements prior to sedatives being given but EMS decided to administer them to ensure sedation afterwards. She never received CPR. Of note, her code status was initially DNR and DNI but at some point that was crossed out and it was decided that she should be changed to FULL CODE. Palliative medicine consulted to assist patient and family and determination of goals of care. Prior to visiting, who reviewed her records in the EMR in detail, both for this and previous admissions. Spoke with her medical and critical care teams, her nurse, her PCPs office, and director of safety and security at her SNF. I also spoke by phone at length with her brother/SHIRLEY Kang and his son Pk. When I arrived initially, patient was sedated and nonresponsive, on the ventilator. Later in the day on return visit, she had awakened somewhat after reduction of her sedating medications. There was considerable confusion at time of admission about her advanced directive status. A POLST from her SNF is reviewed and both CPR and DNR boxes are checked, as is the box for limited interventions. This is an old document from 2013 signed by a PCP who is no longer practicing. Per my conversation with her SNF, a family/team conference was held several months ago at which time her family members indicated that if she developed significant illness " let her go" but at that time family members refused to sign a new documentation confirming those wishes. Last night and today, her brother/SHIRLEY Kang indicates that while the family does not want her to undergo CPR or defibrillation, they were willing to have her hospitalized and have her be on the ventilator for short period of time in hopes that she would recover. They say that this is consistent with wishes she expressed in the past. Plan is to talk further with Jorge Luis and Pk when they come to the hospital to visit later today. After my conversations with them, I communicated with members of her medical team and her bedside nurse, informing them of the patient and family wishes, and confirming documentation in the EMR about her CODE STATUS. Past Medical History Significant PMH Noted: Hypertension Dementia Atrial fibrillation anticoagulated on Warfarin Pulmonary embolism - January 2012 Severe systolic CHF with EF of 10-15% Chronic kidney disease stage 3 Type 2 diabetes, non-insulin using Obesity w/concern for untreated sleep apnea noted on admission five years ago History of pericardial effusion History of hypercarbic hypoxic respiratory failure Surgical History Appendectomy Hernia repair Social History Occupation: Resides at [employer], [place] under the care of Dr. Avelar Family Members Issues: As above Social Support: Very limited due to her dementia Palliative Performance Scale PPS Patient Status: Baseline PPS Ambulation: Mainly Sit/Lie PPS Activity: Unable to do any activity PPS Self-Care: Total Care PPS Intake: Normal or reduced Performance Scale: 30% ADLs ADL Patient Status: Baseline ADL Ambulation: Mainly Sit/Lie ADL Dressing: Total care ADL Feeding: Occasional assistance necessary ADL Hygene/bathing: Total care ADL Transfers: Mainly assistance FAST Scale FAST Score: 7-C POLST at Time of Admission Previous POLST?: Yes POLST Last Review Date: Dec 03, 2016 Cardiopulmonary Resuscitation: CPR: Attempt Resuscitation, DNR: Do Not Attempt Resuscitation Medical Interventions: Limited Additional Interventions POLST Discussed with: Health Care Agent (DPOAHC) POLST Status: Still under discussion Allergy Allergies Reviewed: Yes Medications Current Medications: Current Medications Calcium Gluconate 1 gm Q5MIN PRN IVPUSH; Start 12/02/16 at 18:10; Stop 12/02/16 at 18:38; Status DC Midazolam HCl 2 mg Q10MIN PRN IVPUSH Last administered on 12/02/16 19:09; Admin Dose 2 MG; Start 12/02/16 at 18:25; Stop 12/02/16 at 19:14; Status DC Ondansetron HCl 4 to 8 mg Q4H PRN IVPUSH; Start 12/02/16 at 18:50 Senna 2 tablet BID PRN PO; Start 12/02/16 at 18:50 Al Hydrox/Mg Hydrox/Simethicone 30 ml Q6 PRN PO; Start 12/02/16 at 18:50 Polyethylene Glycol 17 gm DAILY PRN PO; Start 12/02/16 at 18:50 Chlorhexidine Gluconate 5 ml 5 ml Q4 MT Last administered on 12/03/16 09:42; Admin Dose 5 ML; Start 12/02/16 at 20:30 Propofol [id number] mcg/Premix 100 ml @ 2.56 mls/hr 1907 IV; Start 12/02/16 at 19: 07; Status UNV Fentanyl/Premix 250 ml @ 5 mls/hr Q24H IV Last administered on 12/02/16 19:52; Admin Dose 5 MLS/HR; Start 12/02/16 at 19:07 Pantoprazole 40 mg 40 mg BIDAC IVPUSH; Start 12/02/16 at 20:51; Stop 12/03/16 at 02:01; Status DC Propofol [id number] mcg/Premix 100 ml @ 2.56 mls/hr Q24H IV Last administered on 05:47; Admin Dose 2.56 MLS/HR; Start 12/02/16 at 20:05 Dobutamine HCl/ Dextrose/Premix 250 ml @ 6.4 mls/hr Q24H IV; Start 12/02/16 at 20:39; Stop 12/02/16 at 21:10; Status DC Sodium Polystyrene Sulfonate 30 gm 30 gm Q4 RECTAL; Start 12/03/16 at 00:30; Stop 12/03/16 at 00:30; Status DC Dopamine HCl/ Dextrose [id number] mcg/Premix 250 ml @ 4 mls/hr Q24H IV; Start at 21:10; Stop 12/03/16 at 05:29; Status DC Linezolid 600 mg/ Premix 300 ml @ 300 mls/hr Q12H IV Last administered on 22:56; Admin Dose 300 MLS/HR; Start 12/02/16 at 22:00 Cefepime HCl/ Dextrose/Water 50 ml @ 12.5 mls/hr Q12H IV; Start 12/03/16 at 15: 00 Sodium Polystyrene Sulfonate 30 gm 30 gm Q4 RECTAL Last administered on 04:48; Admin Dose 30 GM; Start 12/03/16 at 00:30; Stop 12/03/16 at 04:31; Status DC Famotidine/Sodium Chloride 20 mg/ Premix 50 ml @ 100 mls/hr DAILYAC IV Last administered on 12/03/16 09:47; Admin Dose 100 MLS/HR; Start 12/03/16 at 07:30 Norepinephrine 8000 mcg/Premix 250 ml @ 8 mls/hr Q24H IV Last administered on 05:34; Admin Dose 8 MLS/HR; Start 12/03/16 at 05:20 Dextrose/Water 1,000 ml @ 50 mls/hr Q20H PRN IV; Start 12/03/16 at 06:14; Status UNV Insulin Human Regular/Sodium Chloride 101 ml @ 0 mls/hr Q0M IV; Start 12/03/16 at 06:14; Status UNV Scheduled Acetaminophen (Acetaminophen) 500 Mg Capsule 1,000 MG PO BID Carvedilol (Carvedilol) 3.125 Mg Tablet 3.125 MG PO BID Digoxin (Digoxin) 125 Mcg Tablet 125 MCG PO DAILY Donepezil (Donepezil) 10 Mg Tablet 10 MG PO QAM Furosemide (Lasix) 40 Mg Tablet 40 MG PO DAILY Losartan Potassium (Losartan Potassium) 25 Mg Tablet 25 MG PO DAILY Metformin (Metformin) 500 Mg Tablet 500 MG PO DAILY Pravastatin (Pravastatin) 20 Mg Tablet 20 MG PO HS Spironolactone (Spironolactone) 25 Mg Tablet 12.5 MG PO DAILY Tiotropium Atalissa (Spiriva) 18 Mcg Cap.w.dev 18 MCG IH DAILY Warfarin Sodium (Warfarin Sodium) 4 Mg Tablet 4 MG PO ,,,Ambrocio Warfarin Sodium (Warfarin Sodium) 3 Mg Tablet 3 MG PO ,,,Ambrocio Warfarin Sodium (Warfarin Sodium) 7.5 Mg Tablet 7.5 MG PO mon,fri,fri Scheduled PRN Acetaminophen (Acetaminophen) 325 Mg Capsule 650 MG PO q8 hours PRN PRN For Pain Bisacodyl (Dulcolax Rectal) 10 Mg Supp.rect 10 MG RC DAILY PRN PRN For Constipation Magnesium Hydroxide (Milk of Magnesia) 400 Mg/5 Ml Oral.susp 30 ML PO DAILY PRN PRN For Constipation Na Phos,M-B/Na Phos,Di-Ba (Fleet Enema) 133 Ml Enema 133 ML RC DAILY PRN PRN For Constipation Current Treatments Ventilator: Yes Oxygen: Yes IV Fluids: Yes Antibiotics: Yes Restraints: Yes Telemetry: Yes Critical Care Unit: Yes Objective Findings Exam Vital Sign - Last Date Time Temp Pulse Resp B/P Pulse Ox O2 Delivery O2 Flow Rate FiO2 12/03/16 09:15 52 117/49 100 40 12/03/16 04:18 36.2 18 Mechanical Ventilator Intake and Output 12/02/16 12/02/16 12/03/16 Cumulative From/Thru 15:00 23:00 07:00 12/02/16 19:55 - 12/03/16 05:36 Intake Total 350 ml 1083 ml 1433 ml Output Total 1150 ml 1150 ml Balance 350 ml -67 ml 283 ml Intake IV Total 50 ml 883 ml 933 ml Packed Cells 300 ml 300 ml Tube Irrigant 200 ml 200 ml Output Urine Total 1150 ml 1150 ml Other 0 ml 0 ml # Bowel Movements 0 0 Objective Elderly woman in CCU bed, unresponsive and intubated. Vital signs noted- continues on norepinephrine drip. Skin is pale, warm and dry. Head and neck exam without other acute findings. Lungs with scattered crackles. Heart sounds regular and I hear no murmurs gallops or ectopy. Abdomen is soft and without evidence of tenderness or rigidity. Extremities without pitting edema. Neurologic exam limited because of sedation. Lab/Diagnostics Lab and Imaging results reviewed in detail in EMR. Time spent Total time 95 minutes; spread across multiple visits throughout day, >50% face to face with patient and family, providing counselling regarding plans and recommendations, and in care coordination with her medical teams. All the above total time, 50 minutes counseling for advanced care planning with the the patients family/the surrogate decision maker, her brother Jorge Luis (and his son Pk). copies to: Stefan Avelar David F MD Dec 03, 2016 10:05
[2016-12-03 10:21] LABS: INR 1.81 ratio
[2016-12-03] MEDS: Linezolid Inj 600 MG in IV Premix 1 EACH IV SCH ×2 (10:21→21:01)
[2016-12-03] MEDS: 0.9% Sodium Chloride 1,000 ML IV SCH ×2 (10:30→20:59)
--- NOTE | 2016-12-03 10:50 | NUR ---
NUTRITION ASSESSMENT: ASSESS: Pt is a 81yo F admitted to CCU for respiratory distress. She is currently NPOx1 and vented. Prior to intubation, pt was DNR/DNI. Palliative care is involved to discuss goals of care with family. PMHX: Dementia, Afib, DM, CKD stg 3, HTN, PE, CHF LABS: Reviewed. CO2 15, Bun 116, events associate 3.03, glu 249, phos 6.0, Mg 2.9, T.bili 1.4, AST 265, ALT 358, Alb 3.4 MEDS: Reviewed. Propofol, norepinephrine GI: 0 BM SKIN: Odin 8 CURRENT WTS: 86.8kg, BMI 27.5kg/m2, IBW: 68.2kg DIET: NPO EST. NEEDS: VENT/RADAMES Kcals: 1735-2170kcal/day (20-25kcal/kg) Pro: 105-130g/day (1.2-1.5g/kg) Fluids: ~2000ml/day NUTRITION DIAGNOSIS: 1.) Inadequate oral intake related to decreased ability to consume sufficient energy as evidenced by current NPO status NUTRITION INTERVENTION: 1.) Will monitor NPO status and goals of care. If pt remains NPO/vented for next 24-48 hrs recommend nutrition support be considered MONITOR / EVAL: NPO/vent, wt, GI, labs, POC, nutrition status. Will continue to monitor per high nutrition risk guidelines
--- NOTE | 2016-12-03 10:54 | NUR ---
Palliative Care Palliative Care received verbal order from Dr Thacker 12/03/16 to assist with goals of care. Patient was admitted 12/02/16. Jorge Luis Jensen (brother) [phone] Alisha Apodaca (sister) [phone] Palliative Care to follow. Willow Kim
--- NOTE | 2016-12-03 11:01 | PCM.CHPMED ---
Subjective Date of Service: Dec 03, 2016 Provider requesting consult: Viktoria Huynh DO Primary Physician: Admitting Physician: Serena Benz DO Primary Care Physician: Stefan Avelar DO Attending Physician: Heather Thacker DO Chief Complaint: Chief Complaint: CKD, hyperkalemia History of Present Illness: Ms. Styles is a 81-year-old female with past medical history of dementia, CKD stage III (previous hospital admission 2011 shows a creatinine 1.2), A. fib on anticoagulation, CHF purposes EF of 10-15%), hypertension, PE and diabetes mellitus type II presented to the ED from SNF secondary to decreased level of consciousness and agonal respirations requiring intubation for airway protection and pronounced bradycardia with a rate of 30 BPM. At this point is that it is unclear as to why she became so ill at the snf facility and was noted to be a DNR/DNI though at some point during the EMS encounter this CODE STATUS was scratched out and changed to full code. In the ED, potassium was 6.8, bicarbonate 13 creatinine 3.78, elevated liver function tests, lactic acid 4.9 and ABG showed a pH of 7.32 PCO2 27 bicarbonate 13.6 Nephrology consulted secondary to hyperkalemia, anion gap metabolic acidosis and acute on chronic kidney disease stage III. PMH Past Medical History Hypertension Dementia Atrial fibrillation anticoagulated on Warfarin Pulmonary embolism - January 2012 Severe systolic CHF with EF of 10-15% Chronic kidney disease stage 3 Type 2 diabetes, non-insulin using Obesity w/concern for untreated sleep apnea noted on admission five years ago History of pericardial effusion History of hypercarbic hypoxic respiratory failure Bedside Blood Glucose: 241 Surgical History Appendectomy Hernia repair Home Medications Acetaminophen ER 650mg PO Q8 prn Aspirin 81mg PO daily Carvedilol 3.125mg PO BID Coumadin 2mg PO daily with 5mg tablet = 7mg Coumadin 5mg PO 2 times per week with 2mg tablet = 7mg Coumadin 6mg PO 5x per week Cozaar 25mg PO daily Digoxin 125mcg PO daily Denepezil 10mg PI Qhs Furosemide 40mg PO daily Metformin hydrochloride 500mg PO daily Pravastatin 20mg PO daily Spiriva with HandiHaler 18mcg inhale 1 capsule daily Spironolactone 12.5mg PO daily Allergies: Coded Allergies: No Known Allergies (Unverified Allergy, Unknown, 12/03/16) Family History Family History Unable to obtain secondary to patient sedation Social History Hx Alcohol Use: NoHx Substance Use: No Smoking Status: Unknown if Ever Smoker Living Arrangement: [facility] Facility ([facility]) Exam Vital Signs Vital Sign - Last Date Time Temp Pulse Resp B/P Pulse Ox O2 Delivery O2 Flow Rate FiO2 12/03/16 09:15 52 117/49 100 40 12/03/16 04:18 36.2 18 Mechanical Ventilator Intake and Output 12/02/16 12/02/16 12/03/16 Cumulative From/Thru 15:00 23:00 07:00 12/02/16 19:55 - 12/03/16 05:36 Intake Total 350 ml 1083 ml 1433 ml Output Total 1150 ml 1150 ml Balance 350 ml -67 ml 283 ml Intake IV Total 50 ml 883 ml 933 ml Packed Cells 300 ml 300 ml Tube Irrigant 200 ml 200 ml Output Urine Total 1150 ml 1150 ml Other 0 ml 0 ml # Bowel Movements 0 0 General: Intubated and sedated HEENT: Normocephalic, atraumatic. External ears without defect. Anicteric sclerae, moist conjunctivae, and no lid lag. Dry oral mucosa, dry lips Neck: No jugular venous distension. Cardiovascular: Irregular irregular rhythm, regular rate no murmurs appreciated Pulmonary: Beta mechanically ventilated, symmetric chest rise with good air movement. Lung sounds diminished bilaterally and coarse no crackles appreciated Abdomen: Soft, obese. No hepatosplenomegaly or masses appreciated. Extremities: No clubbing, cyanosis, edema, or lymphadenopathy appreciated. Skin: Decreased skin turgor, prolonged skin tenting Lab and Diagnostics Result Diagram: 12/03/16 0200 12/03/16 0200 X-Rays, CTs and MRIs . X-RAY CHEST ONE VIEW, PORTABLE IMPRESSION: Endotracheal tube is in expected position. Decreased lung volumes. Dictated by: Rl Mccollum M.D. on 12/02/2016 X-RAY CHEST ONE VIEW, PORTABLE IMPRESSION: Gastric tube in normal position. Dictated by: Terry Lemus M.D. on 12/02/2016 X-RAY CHEST ONE VIEW, PORTABLE IMPRESSION: Bilateral pneumonia right greater than left, lines and tubes appear in normal position considering patient rotation leftward. Dictated by: Terry Lemus M.D. on 12/02/2016 CT BRAIN WITHOUT CONTRAST IMPRESSION: Moderate microvascular atherosclerotic change in the deep white matter of each hemisphere but no acute disease is seen. No foreign exchange clerk time. Dictated by: Terry Lemus M.D. on 12/02/2016 CT ABDOMEN AND PELVIS WITHOUT CONTRAST IMPRESSION: 1. Right pleural effusion and bibasilar consolidation or atelectasis. Aspiration /infection should be considered in the differential. 2. Cholelithiasis with gallbladder wall thickening or pericholecystic fluid. These findings are suspicious for acute cholecystitis. Right upper quadrant ultrasound recommended to further characterize findings. 3. Large left staghorn calculus and renal atrophy. 4. Questionable thickening of the ascending colon. Mass cannot be excluded. Direct visualization recommended. These findings are concordant with the overnight interpretation. 5. Increased presacral soft tissue thickening when compared with the study dated 11/16/15. Neoplasm cannot be excluded and direct visualization is recommended. Please note, this finding was not described on the overnight interpretation. Dictated by: Steph Chowdhury M.D. on 12/03/2016 Assessment & Plan Assessment 81 year old female past medical history congestive heart failure, CKD, diabetes mellitus & A. fib who was admitted to the CCU secondary to acute decompensated heart failure, hypercarbic hypoxic respiratory failure. Nephrology consulted secondary to anion gap metabolic acidosis, hyperkalemia and acute on chronic kidney disease. Acute on chronic kidney disease stage 3. Present on admission. Improving -Likely secondary to diabetes with concomitant long-standing hypertension -Per previous hospital admission baseline creatinine 1.2 from 2012, Cr at presentation to ED 3.7 -Creatinine continues to trend down from admission to 3.03 today -Continue IV hydration, recommend increased rate Hyperkalemia, acute. Present on admission. Resolved -Likely multifactorial, secondary to acute on chronic renal failure, lactic acidosis and medications (losartan, spironolactone). -Pt received calcium gluconate, 10U insulin, 10mg albuterol and 30gm Kayexalatex2 -Potassium 6.8 at presentation, trended down to 4.6 today -Held home furosemide in setting of hypotension and shock. -Continue to monitor Anion gap metabolic acidosis. Present on admission. Ongoing -Likely secondary to lactic acidosis and acute on chronic renal failure. -Lactic acid normalized -Continue IV fluids -Continue to monitor Problems: VTE Mechanical Devices: Intermittant Pneumatic CD Resuscitation Status: Limited Interventions (No chest compressions) Attending Statement Nephrology attending: Patient was seen and examined along with Dr. Green. I have reviewed the note and we will discuss the plan as detailed above. I would continue hydration with the patient and wean down the pressors as tolerated. Continue to follow her intake and output. I would like to thank you for this kind consultation we will be following her with you. ABBEY DEJESUS DO Dec 03, 2016 11:01 Nolan Gamez DO Dec 03, 2016 13:21 -Potassium 6.8 at presentation repeat 5.5. ECG as above. -Pt received calcium gluconate, 10U insulin, 10mg albuterol and 30gm Kayexalatex2 -Held home furosemide in setting of hypotension and shock. -Nephrology consulted and plan to see tomorrow. -BMP q3h Anion gap metabolic acidosis. Present on admission. Active -Likely secondary to lactic acidosis and acute on chronic renal failure. -IV fluids cautiously in setting of heart failure -BMP q3h -Nephrology consulted Atrial fibrillation anticoagulated on Warfarin, chronic. Present on admission. Active. -Patient chronicaly anticoagulated on Warfarin with supratherapeutic INR on admission. -10mg IV vitamin K ordered -Warfarin held Supra-therapeutic INR, acute. Present on admission. Active. -INR 4.4 on admission -Warfarin held Type 2 diabetes mellitus, chronic. Present on admission. Active. -Serum glucose 236 on admission. Currently treated with Metformin, non-insulin using. -HbA1c pending -Correctional regular insulin ordered Elevated troponin, likely chronic. Present on admission. Active. -Likely secondary to stress and CKD. ECG without acute ischemic changes. -0.084 on admission -Trend troponin Urinary tract infection, acute. Present on admission. Active. -Unable to assess for UTI symptoms due to patient condition. Patient's brother present at time of admission and reports a history of UTIs. -UA consistent with infection, urine culture pending -Pt started on zosyn empirically on admission. Will change to cefepime due to poor renal function. -Continue broad spectrum antibiotics in setting of shock and pending cultures. Hypertension, chronic. Present on admission. -Outpatient antihypertensive medications per review of [facility] include: -Held home antihypertensives for Carvedilol 3.125mg PO BID Digoxin 125mcg PO daily Furosemide 40mg PO daily Spironolactone 12.5mg PO daily Problems: VTE Mechanical Devices: Intermittant Pneumatic CD Resuscitation Status: Limited Interventions (No chest compressions) ABBEY DEJESUS DO Dec 03, 2016 11:01
--- NOTE | 2016-12-03 12:44 | NUR ---
Inpatient Wound Nurse Order for Pressure Ulcer Protocol received. Patient has no open areas and no skin breakdown at this time. She is on appropriate surface and staff is following pressure ulcer prevention guidelines. No further wound care needed unless staff identifies new wounds or issues.
--- NOTE | 2016-12-03 12:56 | DRSVH ---
[facility] [address] [place] [address] Echocardiogram Report Name: MANAS CULLEN EStudy Date: 11/2016 Height: 70 in Hospital Exam Location: [facility] Weight: 191 lb Gender: Female BSA: 2.0 m2 : 1935 Age: 81 yrs BP: 120/52 mmHg Reason For Study: Congestive Heart Failure Ordering Physician: Performed By: Ashley Huffman Referring Physician: Dr. Jose Avelar Interpretation Summary The left ventricle is moderately dilated. Left ventricular wall thickness is mildly increased. Left ventricular systolic function is severely reduced. The ejection fraction is estimated to be 20-25%. LVEF has not significantly changed since prior study. Assessment of diastolic parameters suggests a pseudonormalization pattern, consistent with elevated filling pressures. The right ventricle is moderately dilated. There is no mass or thrombus in the right ventricle. Right ventricular systolic function is moderately reduced and has mildly improved since prior study. Right ventricular systolic pressure is estimated to be 48 mmHg plus the clinically estimated CVP which cannot be estimated on this exam. The left atrium is severely dilated. The right atrium is moderately dilated. There is moderate mitral regurgitation. MR has decreased. There is no other significant valvular heart disease. The aortic root is normal size. Procedure: A two-dimensional transthoracic echocardiogram with color flow and Doppler was performed. The study quality was technically adequate. Comparison is made with the echocardiogram of 02/20/2012. The patient had frequent PVCs during the exam. Left Ventricle: The left ventricle is moderately dilated. Left ventricular wall thickness is mildly increased. There is no thrombus. Left ventricular systolic function is severely reduced. The ejection fraction is estimated to be 20-25%. There is severe global hypokinesis of the left ventricle. Assessment of diastolic parameters suggests a pseudonormalization pattern, consistent with elevated filling pressures. Right Ventricle: The right ventricle is moderately dilated. There is no mass or thrombus in the right ventricle. Right ventricular systolic function is moderately reduced. Atria: The left atrium is severely dilated. The right atrium is moderately dilated. There is no Doppler evidence for an interatrial shunt. Mitral Valve: There is mild to moderate mitral annular calcification. The mitral valve chordae are thickened and/or calcified. There is moderate mitral regurgitation. Aortic Valve: The aortic valve is mildly calcified. No aortic regurgitation is present. Tricuspid Valve: The tricuspid valve leaflets are thin and pliable. There is mild tricuspid regurgitation. Right ventricular systolic pressure is estimated to be 48 mmHg plus the clinically estimated CVP which cannot be estimated on this exam. Pulmonic Valve: The pulmonic valve is not well visualized. There is a trace or physiologic amount of pulmonic regurgitation. There is no other significant valvular heart disease. Great Vessels: The aortic root is normal size. The ascending aorta could not be visualized. The IVC has a measurement of 23 mm. Inspiratory collapse cannot be assessed because of mechanical ventilation, thus CVP cannot be estimated.. Pericardium/ Pleura There is a trivial pericardial effusion noted. The pericardial effusion has not changed since the prior exam. There are small- sized bilateral pleural effusions noted. MMode/2D Measurements & Calculations LVIDd: 6.5 cm RA long axis: 6.0 cm LVOT diam LVIDs: 5.5 cm LA A2 area: 32.4 cm FS: 15.2 % LA A4 area: 32.7 cm RA area: 25.0 cm AoV Opening EPSS: 1.9 cm LA length (vol): 7.0 cm RA vol: 88.1 ml IVSd: 1.2 cm LA vol: 128.7 ml RA : 43.1 ml/m2 Ao root diam LVPWd: 1.3 cm LA vol index: 62.9 ml/m Aortic Jxn IVC diam: 2.3 cm : 2.4 cm EDV(MOD-sp2) LV qureshi. diameter/BSA LV sys. diameter/BSA RVD1 (basal) (cm/m^2): 3.2 (cm/m^2): 2.7 : 5.1 cm ESV(MOD-sp2) EF(MOD-sp2) RVD2 (mid) TAPSE: 1.0 cm : 4.2 cm Doppler Measurements & Calculations Ao V2 max MV E max shar MV E/A: 1.1 TR max shar : 173.0 cm/sec : 111.1 cm/sec Med Peak E' Shar : 345.1 cm/sec Ao max PG MV A max shar TR max PG : 12.0 mmHg : 97.9 cm/sec E/E' med: 31.6 : 47.6 mmHg Ao mean PG MV P1/2t: 47.5 msecLat Peak E' Shar PA V2 max : 78.0 cm/sec LVOT Max Shar MR ERO: 0.09 cm2 E/E' lat: 15.3 PA mean PG : 76.3 cm/sec E/e' average: 23.4 JORGE ALBERTO(I,D) PA Accel Time : 0.08 sec : 0.92 cm sev ratio MV dec time MV P1/2t max shar Ao V2 mean LV V1 max PG : 0.15 sec : 100.9 cm/sec MVA(P1/2t): 4.6 cm2Ao V2 VTI: 35.1 cm LV V1 VTI JORGE ALBERTO(V,D): 1.0 cm2 : 13.6 cm MR flow rate PA V2 mean JORGE ALBERTO indexed to BSA : 44.2 cm3/sec : 47.0 cm/sec (cm^2/m^2): 0.45 MR PISA radius Reading Physician:ABDULLAHI
--- NOTE | 2016-12-03 13:26 | CONS ---
[address] [address] CONSULTATION REPORT PATIENT: MANAS CULLEN : 1935 MR#: [id number] ADMIT: 12/02/2016 JOB ID: [id number] PULMONARY CRITICAL CARE CONSULTATION: DATE OF SERVICE: 12/03/2016 REQUESTING PHYSICIAN: Dr. Ledezma. REASON FOR CONSULTATION: Respiratory failure. HISTORY OF PRESENT ILLNESS: A 81-year-old female who is a resident of a care facility. Patient unable to give any history. History taken from the chart indicates a history of dementia, chronic Afib on anticoagulation, diabetes mellitus, chronic kidney disease stage III, hypertension, status post pulmonary embolism and systolic heart failure with ejection fraction of 10% in 2011, presented because of decreasing level of consciousness. Apparently the patient developed increasing lethargy and developed agonal respirations. Heart rate 30. Responded to atropine. Required intubation en route by the paramedics. No other history available. PAST MEDICAL HISTORY: Includes: 1. Hypertension. 2. Dementia. 3. Atrial fibrillation anticoagulated with warfarin. 4. Pulmonary embolism January 2012. 5. CHF with ejection fraction 10%. 6. Chronic kidney disease stage III. 7. Type 2 diabetes mellitus. 8. Obesity. 9. History of pericardial effusion. 10. History of hypercarbic hypoxemic respiratory failure. MEDICATIONS: On admission include acetaminophen, aspirin, carvedilol, Coumadin, Cozaar, digoxin, donepezil, furosemide, metformin, pravastatin, Spiriva, spironolactone. REVIEW OF SYSTEMS: Unable to obtain. Unable to obtain family history, smoking history, travel history, occupational history, etc. OBJECTIVE: Temperature 36.2, pulse 57-76, respiratory rate 18 with ventilator set at 18, blood pressure 117/49, O2 sat on FiO2 of 40%, PEEP of 9 (it is set at 5 , but measured at 9 on ventilator without evidence of auto PEEP) shows an O2 sat of 100%. General appearance: Well-developed, moderately overweight, somewhat pale-appearing female sedated on ventilator. Pupils about 1 mm in diameter. Conjunctivae are slightly pale. Chest fairly good breath sounds. Lung solis are clear with tidal volume of 480, PEEP at 9 shows a peak inspiratory pressure 25, plateau of 19. Heart: Regular rhythm with frequent premature beats that do not seem to reset the heart rhythm. Heart tones normal. A II/ systolic murmur at the apex radiating towards the axilla. PMI seems almost to the anterior axillary line. Abdomen soft. Nondistended. No apparent tenderness. Quiet. Extremities: No pretibial edema. LABORATORY VALUES: Show a white count of 11,200 with 79 polymorphonuclears, no bands, 12 lymphocytes. Hemoglobin on admission 5.8. After 2 units of blood, 8.6. Platelet count 225,000 and decreasing. Sodium 145, potassium 5.5, chloride 108, CO2 is 14, BUN 132, creatinine 3.39 with repeat after 1 L showing a creatinine 3.03. Lactic acid initially 4.9 at admission; within 10 hours decreased to 1.8. Calcium 8.6, albumin 3.4. Total bilirubin 1.4, AST 265, ALT 358, alkaline phos 112. INR admission was 4.4, currently 1.8. UA shows specific gravity 1.020, large leukocyte esterase, WBCs of 11-50 and many bacteria. IMAGING STUDIES: Chest x-ray shows decreased lung volumes. Repeat film shows dense opacification right mid and lower lung field with retrocardiac opacity. Abdominal and pelvic CT shows a small right pleural effusion. Bibasilar consolidation. Cholelithiasis with gallbladder thickening. Large left staghorn calculus and renal atrophy. Questionable thickening of ascending colon. Increased presacral soft tissue thickening when compared to study of November 16, 2015. Neoplasm cannot be excluded. OTHER DATA: Arterial blood gases on rate of 14, tidal volume of 480, FiO2 0.4, and PEEP of 9 shows pO2 118, pCO2 25, pH 7.41. ASSESSMENT: Multifactorial deterioration in the patient's status. Seems to be a bit septic. Acidotic, likely from a combination of mild lactic acidemia and renal failure. Concern that some of her obtundation may be due to urinary tract infection. In addition, has severe cardiomyopathy. Ejection fraction measured in 2011 was 10% to 15%. I think it would be important to repeat the echocardiogram now and see where we are given such poor performance four years ago. In addition, that would allow us to make decisions regarding fluid resuscitation. I think she needs the fluid. Need to be judicious in the face of possible significant cardiac dysfunction as well as renal dysfunction but this also might be the answer to the problems we are encountering at the moment. Demented elderly resident of a senior living, current heat wave is at high risk for hypovolemia. PLAN: 1. Continue current vent settings. Will check with Respiratory Therapy about the disparity between a set PEEP of 5 and a measured PEEP of 9 without evidence for auto PEEP. 2. Echocardiogram. Suspect she may need fluid, though need to assess cardiac and renal function before proceeding. 3. Not sure about the elevated liver enzymes. Whether that is just from hypertension or some other insult unclear. Pelvic CT suggests some increased soft tissue thickening and recommence direct visualization. In addition, gallbladder distended and pericholecystic fluid present with the recommendation for right upper quadrant ultrasound to further characterize the gallbladder findings. Thank you so much, Dr. Ledezma, for asking the ICU service to see this most unfortunate individual. Will follow her along closely with you. TIME SPENT IN CRITICAL CARE: 65 minutes.
--- NOTE | 2016-12-03 15:54 | NUR ---
Social Work: Initial Assessment/Multidisciplinary Rounds D: Per EMR review, pt is a 81 year old female admitted for respiratory failure, Coma. Pt is Medicare with [employer] supplement; pt has no additional insurance. PCP is Stefan Avelar MD. NOK is Jorge Luis Styles, brother [phone]. DAVID on file. Pt discussed in multidisciplinary Rounds. Pt is currently in CCU, vented and sedated. Pt is a LTC resident at [facility]. INPATIENT SERVICES RN attempted phone contact with pt's brother and listed SARAH. Left message requested return phone call. Assessment completed with [facility] admissions worker, Capri. The patient is w/c bound at baseline with dementia. Pt requires 1-2 person assist for transfers depending on her level of cooperation. Pt is usually able to stand and transfer. The pt is accepted back to [facility] with Dr. Avelar to follow. A: Pt who is a LTC resident at [facility]. P: Anticipate pt to return back to [facility] pending pt's clinical course. INPATIENT SERVICES RN to continue to follow to assess for d/c needs. SOLE Gore Addendum: 12/03/16 at 1606 by JENNIFER ROGER Amended: Links added.
[2016-12-03] MEDS: Cefepime 1,000 MG in Dextrose 5% Minibag Plus 50 ML IV SCH (16:24)
--- NOTE | 2016-12-03 17:51 | NUR ---
Remains on vent support. Saturations stable at 100% on .40 FiO2. Suctioning for small to moderate amounts creamy secretions via ETT. RAAS -5 this morning, fentanyl and propofol off at 1100. Pt beginning to wake up and responds to stimuli by shaking or grimacing but is not making purposeful movements. Restraints on. IVF as ordered. UOP 550ml/12h. Brother and nephew here today to meet with Dr Morgan. Plan to continue current level of care, no CPR or defib if pt were to decompensate.
--- NOTE | 2016-12-03 18:31 | PCM.PNMED ---
Subjective Date of Service Dec 03, 2016 Subjective Subjective: Patient on the vent lying in bed on examination. Unable to elicit any history from the patient as she is currently intubated and sedated Events Overnight: No acute events overnight. ROS: Due to the patient being comatose, a review of systems was unable to be obtained. Exam Vital Signs Vital Sign - Last Date Time Temp Pulse Resp B/P Pulse Ox O2 Delivery O2 Flow Rate FiO2 12/03/16 16:37 65 113/45 100 40 12/03/16 16:00 36.5 14 Mechanical Ventilator Intake and Output 12/02/16 12/02/16 12/03/16 Cumulative From/Thru 15:00 23:00 07:00 12/02/16 19:55 - 12/03/16 05:36 Intake Total 350 ml 1083 ml 1433 ml Output Total 1150 ml 1150 ml Balance 350 ml -67 ml 283 ml IV Total 50 ml 883 ml 933 ml Packed Cells 300 ml 300 ml Tube Irrigant 200 ml 200 ml Output Urine Total 1150 ml 1150 ml Other 0 ml 0 ml # Bowel Movements 0 0 Exam General: GCS of 3 well-developed, in no acute distress, currently on a vent HEENT: Normocephalic, atraumatic. External ears without defect. Pupils equal, pinpoint, and minimally reactive to light. Anicteric sclerae, moist conjunctivae. Cardiovascular: Bradycardic with systolic murmur, no rubs, or gallops appreciated Pulmonary: Patient currently intubated, coarse breath sounds in all lung solis , no wheezes, or rhonchi appreciated Abdomen: Bowel tones present. Soft, nontender, nondistended. Extremities: No clubbing, cyanosis, edema Skin: Normal temperature, turgor, and texture; no rash, ulcers, or subcutaneous nodules appreciated. Neurological: Unable to assess as patient is currently sedated Psychiatric: Unable to assess as patient is currently sedated IVs and Medications IV Fluids 750 mL normal saline delivered with IV medications. Medications Reviewed: Medications were reviewed in detail Medications High Risk medications include: Propofol Norepinephrine Versed Lab and Diagnostics Result Diagram: 12/03/16 1400 12/03/16 0200 Microbiology 12/02/16 Blood Culture- pending 12/02/16 Urine Culture- pending 12/02/16 MRSA screen- pending X-Rays, CTs and MRIs (12/02/16) X-RAY CHEST ONE VIEW, PORTABLE INDICATIONS: 81 year-old female with dyspnea and bradycardia. IMPRESSION: Endotracheal tube is in expected position. Decreased lung volumes. Dictated and approved by: Rl Mccollum M.D. on 12/02/2016 at 16:42 (12/02/16) CT BRAIN WITHOUT CONTRAST INDICATIONS: altered LOC, COMA IMPRESSION: Moderate microvascular atherosclerotic change in the deep white matter of each hemisphere but no acute disease is seen. No change booth attendant time. Dictated and approved by: Terry Lemus M.D. on 12/02/2016 at 18:30 X-RAY CHEST ONE VIEW, PORTABLE IMPRESSION: Gastric tube in normal position. Dictated by: Terry Lemus M.D. on 12/02/2016 at 18:37 Approved by: Terry Lemus M.D. on 12/02/2016 at 18:37 (12/02/16) X-RAY CHEST ONE VIEW, PORTABLE INDICATIONS: line placement IMPRESSION: Bilateral pneumonia right greater than left, lines and tubes appear in normal position considering patient rotation leftward. Dictated and approved by: Terry Lemus M.D. on 12/02/2016 at 21:25 Cardiac Echo Impressions Echocardiogram The left ventricle is moderately dilated. Left ventricular wall thickness is mildly increased. Left ventricular systolic function is severely reduced. The ejection fraction is estimated to be 20-25%. LVEF has not significantly changed since prior study. Assessment of diastolic parameters suggests a pseudonormalization pattern, consistent with elevated filling pressures. The right ventricle is moderately dilated. There is no mass or thrombus in the right ventricle. Right ventricular systolic function is moderately reduced and has mildly improved since prior study. Right ventricular systolic pressure is estimated to be 48 mmHg plus the clinically estimated CVP which cannot be estimated on this exam. The left atrium is severely dilated. The right atrium is moderately dilated. There is moderate mitral regurgitation. MR has decreased. There is no other significant valvular heart disease. The aortic root is normal size. Assessment & Plan 81 year-old lady with a history of dementia, Afib chronically anticoagulated on warfarin, diabetes type II, chronic kidney disease type III, hypertension, history of pulmonary embolism, COPD, systolic CHF with previous EF of 10-15%, comes from [facility], admitted due to altered level of consciousness. Shock. Present on admission. Active. -Uncertain etiology. Likely cardiogenic versus septic shock -Blood pressures maintained with norepinephrine Acute hypercarbic hypoxic respiratory failure. Present on admission. Active. -Uncertain etiology. Patient with history of COPD, outpatient records note COPD. -Patient with previous admission 5years ago for acute respiratory failure. Attributed at that time in part to obesity hypoventilation syndrome and untreated sleep apnea. -CO2 retention based on evidence on ABG, most consistent with obesity hypoventilation syndrome. - ICU team to monitor vent settings -Repeat ABG tomorrow morning Acute on chronic decompensated heart failure. Present on admission. Active. - Echocardiogram in 2011 showed an EF of 10-15%. -12/03 echocardiogram shows EF of 20-25% other findings as above -Fluid resuscitation initiated for presumed septic shock. Pt received 1L NS. -Currently requiring pressor support with norepinephrine. -Held home carvedilol, losartan, digoxin, furosemide and spironolactone -Cardiology consulted Severe anemia, likely acute on chronic. Present on admission. Active. -Uncertain etiology. Possibly chronic, possibly due to acute blood loss secondary to GI bleed in setting of CKD stage 3. Patient unconscious at presentation and unable to provide additional history. -No obvious source for bleeding on exam. -Hb 5.8 at presentation, transfused 2units pRBCs on 12/03 -CT abd/pelvis shows no obvious source of bleeding -Currently holding stable, Continue to Monitor H/H -Transfusion threshold Hb < 7.0 Acute on chronic kidney disease stage 3. Present on admission. Active. -Likely secondary to diabetes and longstanding hypertension. Creatinine at presentation 3.71 with unknown baseline. Previous admission 5 years ago with BUN /Cr of -Consulted nephrology Hyperkalemia, acute. Present on admission. Resolved -Likely multifactorial, secondary to acute on chronic renal failure, lactic acidosis and medications (losartan, spironolactone). -Potassium 6.8 at presentation repeat 5.5. ECG as above. -Pt received calcium gluconate, 10U insulin, 10mg albuterol and 30gm Kayexalatex2 -Held home furosemide in setting of hypotension and shock. -Nephrology consulted Anion gap metabolic acidosis. Present on admission. Improving -Likely secondary to lactic acidosis and acute on chronic renal failure. Atrial fibrillation anticoagulated on Warfarin, chronic. Present on admission. Active. -Patient chronicaly anticoagulated on Warfarin with supratherapeutic INR on admission. -10mg IV vitamin K ordered -Warfarin held Supra-therapeutic INR, acute. Present on admission. Active. -INR 4.4 on admission -Warfarin held Type 2 diabetes mellitus, chronic. Present on admission. Active. -Serum glucose 236 on admission. Home treated with Metformin, non-insulin dependent. -HbA1c pending -Correctional regular insulin Elevated troponin, likely chronic. Present on admission. Active. -Likely secondary to stress and CKD. ECG without acute ischemic changes. -Troponin undulating since admission Urinary tract infection, acute. Present on admission. Active. -Unable to assess for UTI symptoms due to patient condition. Patient's brother present at time of admission and reports a history of UTIs. -UA consistent with infection, urine culture showing gram-negative rods sensitivities pending -Pt started on zosyn empirically on admission. Will change to cefepime due to poor renal function. -Continue broad spectrum antibiotics in setting of shock and pending cultures. Hypertension, chronic. Present on admission. -Outpatient antihypertensive medications per review of [facility] include: -Held home antihypertensives: Carvedilol 3.125mg PO BID Digoxin 125mcg PO daily Furosemide 40mg PO daily Spironolactone 12.5mg PO daily History of dementia. Present on admission. Presumed stable. -Held donepezil CODE STATUS: LIMITED INTERVENTIONS. Discussed code status with family and confirmed NO CHEST COMPRESSION and short term INTUBATION only. GI Prophylaxis: IV protonix as above for probable GI bleed DVT Prophylaxis: Sub-q Heparin held on admission for supratherapeutic INR of 4.4. PRN: Acetaminophen-fever/headache/mild/moderate pain Bowel regimen, as needed. Disposition: Patient will likely require ICU care for an extended period of time given her current mental status and poor prognosis. VTE Mechanical Devices: Intermittant Pneumatic CD Resuscitation Status: Limited Interventions (No chest compressions/no defibrillation) Attending Statement The patient was seen and examined together with Dr. Ledezma on 12/03/16 and I have added additional information to the note above. Horace Ledezma DO Dec 03, 2016 18:31 Heather Thacker DO Dec 08, 2016 17:59 Horace Ledezma DO Dec 03, 2016 18:31
[2016-12-03] MEDS ORDERED: Dextrose 5% 0.45% NaCl 1,000 ML IV PRN (19:02)
[2016-12-03] MEDS ORDERED: 0.9% Sodium Chloride 250 ML ONE (20:52)
[2016-12-03] MEDS: fentaNYL-PF 50 mCg/mL 2 mL Inj IVPUSH PRN ×2 (21:01→23:45)
[2016-12-03] MEDS ORDERED: Amiodarone 150 mg/100 mL D5W 150 MG in IV Premix 1 EACH IV ONE (23:25)
[2016-12-04] VITALS (15 sets, daily range): BP systolic 82–123; BP diastolic 40–98; PULSE 43–63; RESP 14–18; O2SAT 97–100
--- NOTE | 2016-12-04 00:17 | NUR ---
Staffing Report given to Mandeep Jackson RN [facility]. All questions answered.
[2016-12-04] MEDS: Norepineph 8,000 mCg/250 mL NS 8,000 MCG in IV Premix 1 EACH IV SCH (02:01)
[2016-12-04] MEDS: Cefepime 1,000 MG in Dextrose 5% Minibag Plus 50 ML IV SCH ×2 (04:04→15:55)
[2016-12-04] MEDS: Chlorhexidine 0.12% 15 mL Oral Solution MT SCH ×4 (04:04→16:50)
[2016-12-04 05:23] LABS: BASOPHILS % (AUTO) 0.1 % (0-3); EOSINOPHILS % (AUTO) 1.7 % (0-5)
[2016-12-04 05:38] LABS: MONOCYTES % (AUTO) 2.8 % (4-12); Mean Corpuscular Hemoglobin 24.4 pg (27.0-35.0); Mean Corpuscular Volume 79.5 fL (81-100); NEUTROPHILS % (AUTO) 89.1 % (40-74); Platelet Count 118 bil/L (150-400)
[2016-12-04 05:55] LABS: Magnesium 2.6 mg/dL (1.6-2.6); Phosphorus 4.4 mg/dL (2.5-4.9)
[2016-12-04 06:03] LABS: TROPONIN T 0.076 ug/L (0.0-0.011)
[2016-12-04] MEDS: 0.9% Sodium Chloride 1,000 ML IV SCH ×2 (06:21→17:27)
[2016-12-04] MEDS: Amiodarone 360 mg/200 mL D5W 360 MG in IV Premix 1 EACH IV SCH ×2 (06:21→17:27)
--- NOTE | 2016-12-04 06:23 | ABG ---
DateTimeAnalyzed 06:14:24 -_ pH ____7.425 - 7.350 7.450 pCO2 ___28.1__ -mmHg 35.0 45.0 pO2 135 -mmHg 69.0 116 HCO3- ___18.4__ -mmol/L 22.0 26.0 ABE ___-5.6__ -mmol/L -2.0 2.0 tHb ____8.3__ -g/dL 12.0 18.0 O2Hb ___98.8__ -% COHb ____2.1__ -% 0.0 1.5 MetHb ____0.0__ -% 0.4 1.5 FIO2 ___40.0__ -% PEEP ____5.0__ -cmH2O Set_RR 18 -b/min Vt __480.0__ -L Drawn By TLA - Date/Time Notified____ 06:22:00 -_ Spontaneous_RR 18 -b/min Notified By TLA - Notified Whom Mandeep-RN - K+ ____3.1__ -mmol/L 3.5 5.0 Aureliano test _Positive -
--- NOTE | 2016-12-04 06:32 | NUR ---
Cardiac/Resp/Mentation Patient remains on mechanical ventilator and intubated, awakens at times but doesn't follow commands, BP stable and no pressors needed this shift, 15 beat run v-tach and MD notified, Amiodarone bolus given and gtt started, BS in the low 100's this AM on 0.5 unit/hr at this time, no distress noted, VSS, 550 ml urine output. Addendum: 12/04/16 at 0638 by NAN MCGLIL RN Amended: Links added.
[2016-12-04] MEDS ORDERED: KCl 20 mEq/100 mL IV Premix (K 3 - 3.7 & Cr 2.1 - 2.9) IV ONE (07:05)
[2016-12-04] MEDS: Famotidine Inj 20 MG in IV Premix 1 EACH IV SCH (08:19)
--- NOTE | 2016-12-04 10:47 | NUR ---
NUTRITION FOLLOW-UP: ASSESS: Pt is a 81yo F admitted to CCU for respiratory distress. She is currently vented. NPO x2 days. Prior to intubation, pt was DNR/DNI. Palliative care is involved for goals of care. Family at this time wants to continue with intubation for short term. Received verbal to start TF today. Orders placed in chart. PMHX: Dementia, Afib, DM, CKD stg 3, HTN, PE, CHF LABS: Reviewed. Na 152, K 3.1, Cl 118, CO2 17, Bun 90, urgent care technician 2.59, ca 7.8, AST 72, ALT 217, Alb 2.7, A1C 6.5 MEDS: Reviewed. Propofol currently running @ 2.6ml/hr providing 68kcal/day, norepinephrine GI: BMx1 12/04 SKIN: NO PU per WC CURRENT WTS: 87.1kg, BMI 27.6kg/m2, admit wt: 86.8kg, IBW: 68.2kg DIET: NPO x2 EST. NEEDS: VENT/RADAMES Kcals: 1735-2170kcal/day (20-25kcal/kg) Pro: 105-130g/day (1.2-1.5g/kg) Fluids: ~2000ml/day NUTRITION DIAGNOSIS: 1.) Inadequate oral intake related to decreased ability to consume sufficient energy as evidenced by current NPO status--PERSISTS NUTRITION INTERVENTION: 1.) Received verbal to start TF. Recommend start TF of Glucerna 1.5 @ 10ml/hr. If tolerated, recommend advance by 10ml q 6 hrs until reach goal rate of 60ml/hr to provide 1980kcal (2040kcal w/propofol) and 109kcal ( 100% estimated needs). 2.) Adjust goal rate based on daily propofol MONITOR / EVAL: NPO/vent, TF start/magalie, wt, GI, labs, POC. Will continue to monitor per high nutrition risk guidelines
[2016-12-04] MEDS: Linezolid Inj 600 MG in IV Premix 1 EACH IV SCH (11:32)
--- NOTE | 2016-12-04 11:52 | PCM.PNNEPH ---
Subjective Date of Service Dec 04, 2016 Subjective Patient's renal function has improved somewhat however I believe her overall condition is, normal. I have reviewed palliative care's note and discussed this point feels that the nephrology service can offer. Based on this we will sign off. Should you have any questions or any problems arise please try hesitate to contact our office. Once again thank you for allowing us to participate in the care of this unfortunate patient. Exam Vital Signs Vital Sign - Last Date Time Temp Pulse Resp B/P Pulse Ox O2 Delivery O2 Flow Rate FiO2 12/04/16 11:17 53 116/98 100 30 12/04/16 04:06 36.3 14 Mechanical Ventilator Intake and Output 12/03/16 12/03/16 12/04/16 Cumulative From/Thru 15:00 23:00 07:00 12/02/16 19:55 - 12/04/16 04:58 Intake Total 1244 ml 1765 ml 4442 ml Output Total 550 ml 550 ml 2250 ml Balance 694 ml 1215 ml 2192 ml Intake Oral 0 ml 0 ml IV Total 1244 ml 1765 ml 3942 ml Packed Cells 300 ml Tube Irrigant 200 ml Output Urine Total 550 ml 550 ml 2250 ml Gastric Drainage Total 0 ml 0 ml Other 0 ml # Bowel Movements 1 1 2 Lab and Diagnostics Result Diagram: 12/04/16 0500 12/04/16 0500 Microbiology 12/02/16 Blood Culture- pending 12/02/16 Urine Culture- pending 12/02/16 MRSA screen- pending X-Rays, CTs and MRIs (12/02/16) X-RAY CHEST ONE VIEW, PORTABLE INDICATIONS: 81 year-old female with dyspnea and bradycardia. IMPRESSION: Endotracheal tube is in expected position. Decreased lung volumes. Dictated and approved by: Rl Mccollum M.D. on 12/02/2016 at 16:42 (12/02/16) CT BRAIN WITHOUT CONTRAST INDICATIONS: altered LOC, COMA IMPRESSION: Moderate microvascular atherosclerotic change in the deep white matter of each hemisphere but no acute disease is seen. No change agent time. Dictated and approved by: Terry Lemus M.D. on 12/02/2016 at 18:30 X-RAY CHEST ONE VIEW, PORTABLE IMPRESSION: Gastric tube in normal position. Dictated by: Terry Lemus M.D. on 12/02/2016 at 18:37 Approved by: Terry Lemus M.D. on 12/02/2016 at 18:37 (12/02/16) X-RAY CHEST ONE VIEW, PORTABLE INDICATIONS: line placement IMPRESSION: Bilateral pneumonia right greater than left, lines and tubes appear in normal position considering patient rotation leftward. Dictated and approved by: Terry Lemus M.D. on 12/02/2016 at 21:25 Cardiac Echo Impressions Echocardiogram The left ventricle is moderately dilated. Left ventricular wall thickness is mildly increased. Left ventricular systolic function is severely reduced. The ejection fraction is estimated to be 20-25%. LVEF has not significantly changed since prior study. Assessment of diastolic parameters suggests a pseudonormalization pattern, consistent with elevated filling pressures. The right ventricle is moderately dilated. There is no mass or thrombus in the right ventricle. Right ventricular systolic function is moderately reduced and has mildly improved since prior study. Right ventricular systolic pressure is estimated to be 48 mmHg plus the clinically estimated CVP which cannot be estimated on this exam. The left atrium is severely dilated. The right atrium is moderately dilated. There is moderate mitral regurgitation. MR has decreased. There is no other significant valvular heart disease. The aortic root is normal size. Nolan Gamez DO Dec 04, 2016 11:52
--- NOTE | 2016-12-04 12:17 | PROG NOTE ---
[address] [address] PROGRESS NOTE PATIENT: MANAS CULLEN : 1935 MR#: [id number] ADMIT: 12/02/2016 JOB ID: [id number] DATE: 12/04/2016 PULMONARY CRITICAL CARE FOLLOWUP NOTE: PROBLEM LIST: 1. Respiratory failure. 2. Altered mental status. 3. Dementia. 4. Hypertension. 5. Atrial fibrillation. Anticoagulated with warfarin. 6. Congestive heart failure. 7. Chronic kidney disease stage 3. 8. Diabetes mellitus. SUBJECTIVE: Patient a currently on a ventilator. Undergoing pressure support trial. OBJECTIVE: Temperature 36.3, pulse 43-57, respiratory rate 14, blood pressure 116/98, O2 sat on FiO2 30%, PEEP of 8, is 100%. I and O shows 2.3 L in, 1.7 L out. General appearance: Seemingly awake. Somewhat agitated. With suctioning would grab at examiner. Seemed to move coverlets appropriately. Opened eyes to voice but made no attempt to interact. Eyes: Conjunctivae are pink. Chest: Fairly good breath sounds bilaterally. Lung solis relatively clear. The patient currently on pressure support trial of 10/5 pulling tidal volumes of about 400. Heart: Relatively regular rhythm. Heart tones seem normal. Abdomen: Soft. Bowel tones present. Extremities: 1 to 2+ pretibial edema. LABORATORY DATA: Shows a white count of 11,000 with 89 polymorphonuclears, 6 lymphs, 2.8 monocytes. Hemoglobin 8.1, and stable. Platelet count 118,000, down from a peak of 273,000 36 hours ago. Urine cultures growing E. coli resistant to Cipro, levofloxacin, and trimethoprim sulfa. Sensitive to Unasyn, ampicillin, cefazolin, cefepime, and ceftriaxone. Arterial blood gases on FiO2 of 40%, PEEP of 5, rate of 18, tidal volume of 480, shows a pO2 of 135, pCO2 of 28, pH of 7.42. Echocardiogram shows moderately dilated left ventricle with somewhat increased LV wall thickness. LV ejection fraction estimated to be 20%-25% with diastolic parameters suggesting a pseudonormalization pattern consistent with elevated filling pressures. Right ventricle moderately dilated. Both left and right atria are dilated, the left being severely dilated and the right moderately dilated. Moderate mitral regurg. ASSESSMENT: 1. Altered mental status with respiratory failure. Doing reasonably well from a respiratory standpoint. Currently on a pressure support trial. Initially doing well, with reasonable tidal volumes and a respiratory rate in the mid teens. Will see how she progresses. Not quite ready for extubation even if she can be liberated from the ventilator. Unclear what her baseline functional status is. Has been suggested that the patient is ambulatory and feeds herself. That remains to be confirmed. 2. Multiple electrolyte abnormalities. Being repleted. 3. Trophic tube feedings. Need to be started. 4. Anemia. Staying relatively stable. Hemoglobin today is 8.1, down from 8.7 yesterday. Will see how that works itself out. PLAN: 1. Start trophic tube feeds. 2. Continue pressure support trial. 3. Minimize sedation. 4. Continue insulin infusion. TIME: Time spent so far in critical care 40 minutes.
--- NOTE | 2016-12-04 13:45 | DRSVH ---
PROCEDURE: US ABDOMEN, LIMITED ([id number]) INDICATIONS: Gallstones; colonic mass TECHNIQUE: Real-time focused scanning was performed of the abdomen, with image documentation. COMPARISON: [facility], CT, CT ABD PELVIS WO CON, 12/02/2016, 23:33. FINDINGS: 2 gallstones present largest measure 3.1 cm and the gallbladder wall is thickened measuring up to 4.3 mm. Mild gallbladder wall edema. Positive sonographic Senior sign. The common bile duct is dilated to 10.4 mm. IMPRESSION: 1. Cholelithiasis with thickened edematous gallbladder wall and positive sonographic Senior sign cons istent with cholecystitis. 2. Extrahepatic ductal dilatation. Common bile duct stone or other pathology cannot be excluded. Co rrelate clinically. Tessie Buchanan given results by the yard coordinator at 1220 hrs. 12/04/2016. Dictated by: Bartolo JORDAN Interpreted: Terry Lemus MD on 12/04/2016 at 13:34 Approved by: Terry Lemus M.D. on 12/04/2016 at 13:44
--- NOTE | 2016-12-04 13:59 | NUR ---
Palliative Care Family Care Team Meeting3:00PM D: This appeals writer and Palliative Care provider, Dr. Kuhn, met with pt.'s brother, Jorge Luis, and nephew, Pk, to review pt.'s POLST form and whether pt. should be DNR in the event her heart stops. Jorge Luis is pt.'s Medical DPOA and clarified that pt. told him several years ago that she would want to be intubated for respiratory failure, but would not want to have chest compressions/defibrillation in the event her heart stopped. A new POLST form was completed clarifying these wishes. Family expressed that when pt. is extubated (possibly today or tomorrow) they are optimistic she will improve enough to return to [facility], where she has resided for the past 4 years. Per family, if pt. has increasing episodes of respiratory failure they will consider changing her POLST status to DNR/DNI, but for now they are clear that intubation and other life-sustaining measures should be provided to pt. A: Family appears to advocate for pt.'s wishes well, while also seeming to understand that her overall health is compromised at this time. P: Pt.'s POLST form was updated to reflect her Medical DPOA's understanding of pt.'s wishes. Palliative Care team to continue following pt. during her admission at [facility]. SOLE Enrique, KADEN Palliative [facility] Services
--- NOTE | 2016-12-04 14:08 | PCM.PALLBR ---
Palliative Care Recommendation Summary of palliative recommendations: -Symptom management (Pain/other)- continued management per her medical/critical care teams -DPOA/Advanced Directives/POLST- On three separate occasions, night of admission, 12/03 (with Dr. Morgan of Palliative Care Team) and 12/04 (with Dr. Kuhn , PC Team), her brother/POA Jorge Luis indicates that while the family does not want her to undergo CPR or defibrillation, but they were willing to have her hospitalized and be on the ventilator for short period of time in hopes that she would recover. They say that this is consistent with wishes she expressed in the past, before she became demented, and they want to honor her wishes from that past time. -Family/emotional support- palliative team will continue to follow, provide support, and assist the family in setting realistic goals for care. Dr. Kuhn and Inga Starkey met with Jorge Luis and his son at pt's bedside today. Jorge Luis wants to have his sister re-intubated if she is not able to breathe on her own after extubation this admission. After much discussion and counseling, Jorge Luis signed a POLST stating: DNR with FULL interventions. Copies of POLST given to Jorge Luis and one copy in PC Office. Original POLST (NEW on 12/04) is now on patient's hospital chart. Problems: End of Life Preferences DNR (No CPR/no defibrillation) but otherwise, FULL treatment, including re- intubation, if necessary. (12/04) Goals of Care Patient's family hopes she recovers to return to her SNF in premorbid state Disposition To be determined Resuscitation Status Resuscitation Status: Limited Interventions (No chest compressions/no defibrillation) POLST Updates/Changes Previous POLST?: Yes POLST Last Review Date: Dec 03, 2016 POLST Discussed with: Health Care Agent (DPOAHC) POLST Review Outcome: Form Voided . Advanced Care Planning Address: POLST Time: 70 minutes; >50% face to face with patient and/or family, providing counselling regarding plans and recommendations, and in care coordination with his/her medical teams. Included in the above, I spent 30 minutes counseling for advanced care planning with the patient/the patients family/the surrogate decision maker. Palliative Brief Note Date of Service Dec 04, 2016 . Patient Identification: Reina Styles is a 81-year-old female with advanced dementia, severe CHF with EF 10-15%, chronic full anticoagulation secondary to atrial fibrillation and PE, chronic renal failure, etc. admitted with altered level of consciousness, respiratory failure, probable sepsis, hypotension, severe anemia, renal failure, etc. She was intubated due to decreased LOC. Hospital Course: Palliative medicine consulted to assist patient and family and determination of goals of care because her senior care POLST was inconsistent with both orders for CPR and DNR checked on it. This was an old document from 2013 signed by a PCP who is no longer practicing. Prior to visiting, who reviewed her records in the EMR and spoke with her Purple Team Attending, Dr. Thacker and her CCU RNTessie. She remains intubated and mildly sedated, but improving somewhat and the medical team hopes to extubate her today or tomorrow. Exam Elderly woman in CCU bed, HEENT: Head and neck exam without other acute findings. Eyes open, not following examiner but moving around room, not responding to commands. Lungs: intubated, scattered crackles. and intubated. Heart: S1,S2, rrr. Abdomen: soft, NT, nondistended. Skin is pale, warm and dry. Extremities, SCDs on lower extremities, non-pitting edema. Neuro: unable because of sedation. Danielle Kuhn MD Dec 04, 2016 14:08 Dec 04, 2016 . Patient Identification: Reina Styles is a 81-year-old female with advanced dementia, severe CHF with EF 10-15%, chronic full anticoagulation secondary to atrial fibrillation and PE, chronic renal failure, etc. admitted with altered level of consciousness, respiratory failure, probable sepsis, hypotension, severe anemia, renal failure, etc. She was intubated due to decreased LOC. Hospital Course: Palliative medicine consulted to assist patient and family and determination of goals of care because her senior care POLST was inconsistent with both orders for CPR and DNR checked on it. This was an old document from 2013 signed by a PCP who is no longer practicing. Prior to visiting, who reviewed her records in the EMR and spoke with her Purple Team Attending, Dr. Thacker and her CCU RNTessie. She remains intubated and mildly sedated, but improving somewhat and the medical team hopes to extubate her today or tomorrow. On three separate occasions, night of admission, 12/03 (with Dr. Morgan of Palliative Care Team) and 12/04 (with Dr. Kuhn, PC Team), her brother/POA Jorge Luis indicates that while the family does not want her to undergo CPR or defibrillation, but they were willing to have her hospitalized and be on the ventilator for short period of time in hopes that she would recover. They say that this is consistent with wishes she expressed in the past, before she became demented, and they want to honor her wishes from that past time. Danielle Kuhn MD Dec 04, 2016 14:08
[2016-12-04] MEDS ORDERED: Sodium Chloride LOK Flush 10 mL Syringe IVFLUSH PRN ×2 (15:05)
[2016-12-04] MEDS ORDERED: Glucose 40% Oral Gel 15 Gm Tube PO PRN (18:55)
--- NOTE | 2016-12-04 18:59 | NUR ---
HR Pt onel in the 40's most of the day. Amiodarone remains at 0.5mcg/min. suctioning thick londono colored sputum. Propofol turned off for 5hours and then restarted once decided not to extubate today. savage put out 400cc dark sarkis urine.Insulin gtt stopped, tube feed started at trickle.Notified Dr. Tsai requesting sliding scale insulin.
--- NOTE | 2016-12-04 19:10 | PCM.PNMED ---
Subjective Date of Service Dec 04, 2016 Subjective Subjective: Patient on ventilator, she was awake and responding to verbal stimuli however appeared confused. Patient currently in soft restraints. Events Overnight: No acute events overnight. ROS: Due to the patient being on the vent, a review of systems was unable to be obtained. Exam Vital Signs Vital Sign - Last Date Time Temp Pulse Resp B/P Pulse Ox O2 Delivery O2 Flow Rate FiO2 12/04/16 16:51 53 114/46 99 30 12/04/16 16:30 Ventilator 12/04/16 16:30 36.3 14 Intake and Output 12/03/16 12/03/16 12/04/16 Cumulative From/Thru 15:00 23:00 07:00 12/02/16 19:55 - 12/04/16 04:58 Intake Total 1244 ml 1765 ml 4442 ml Output Total 550 ml 550 ml 2250 ml Balance 694 ml 1215 ml 2192 ml Intake Oral 0 ml 0 ml IV Total 1244 ml 1765 ml 3942 ml Packed Cells 300 ml Tube Irrigant 200 ml Output Urine Total 550 ml 550 ml 2250 ml Gastric Drainage Total 0 ml 0 ml Other 0 ml # Bowel Movements 1 1 2 Exam General: well-developed, well-nourished HEENT: Normocephalic, atraumatic. External ears without defect. Pupils equal, round, and reactive to light. Anicteric sclerae, moist conjunctivae. Cardiovascular: Bradycardic with systolic murmur, no rubs, or gallops appreciated Pulmonary: Patient currently intubated, coarse breath sounds in all lung solis , no wheezes, or rhonchi appreciated Abdomen: Bowel tones present. Soft, nontender, nondistended. Extremities: No clubbing, cyanosis, edema Skin: Normal temperature, turgor, and texture; no rash, ulcers, or subcutaneous nodules appreciated. Neurological: Unable to assess as patient is currently intubated and mildly sedated Psychiatric: Unable to assess as patient is currently intubated and mildly sedated IVs and Medications IV Fluids 1700 mL normal saline delivered with IV medications. Medications Reviewed: Medications were reviewed in detail Medications High-risk medications include: Propofol Amiodarone drip Lab and Diagnostics Result Diagram: 12/04/16 0500 12/04/16 1340 Microbiology 12/02/16 Blood Culture- pending 8/7/17 Urine Culture- pending 12/02/16 MRSA screen- pending X-Rays, CTs and MRIs (12/02/16) X-RAY CHEST ONE VIEW, PORTABLE INDICATIONS: 81 year-old female with dyspnea and bradycardia. IMPRESSION: Endotracheal tube is in expected position. Decreased lung volumes. Dictated and approved by: Rl Mccollum M.D. on 12/02/2016 at 16:42 (12/02/16) CT BRAIN WITHOUT CONTRAST INDICATIONS: altered LOC, COMA IMPRESSION: Moderate microvascular atherosclerotic change in the deep white matter of each hemisphere but no acute disease is seen. No post exchange manager time. Dictated and approved by: Terry Lemus M.D. on 12/02/2016 at 18:30 X-RAY CHEST ONE VIEW, PORTABLE IMPRESSION: Gastric tube in normal position. Dictated by: Terry Lemus M.D. on 12/02/2016 at 18:37 Approved by: Terry Lemus M.D. on 12/02/2016 at 18:37 (12/02/16) X-RAY CHEST ONE VIEW, PORTABLE INDICATIONS: line placement IMPRESSION: Bilateral pneumonia right greater than left, lines and tubes appear in normal position considering patient rotation leftward. Dictated and approved by: Terry Lemus M.D. on 12/02/2016 at 21:25 Cardiac Echo Impressions Echocardiogram The left ventricle is moderately dilated. Left ventricular wall thickness is mildly increased. Left ventricular systolic function is severely reduced. The ejection fraction is estimated to be 20-25%. LVEF has not significantly changed since prior study. Assessment of diastolic parameters suggests a pseudonormalization pattern, consistent with elevated filling pressures. The right ventricle is moderately dilated. There is no mass or thrombus in the right ventricle. Right ventricular systolic function is moderately reduced and has mildly improved since prior study. Right ventricular systolic pressure is estimated to be 48 mmHg plus the clinically estimated CVP which cannot be estimated on this exam. The left atrium is severely dilated. The right atrium is moderately dilated. There is moderate mitral regurgitation. MR has decreased. There is no other significant valvular heart disease. The aortic root is normal size. Assessment & Plan 81 year-old lady with a history of dementia, Afib chronically anticoagulated on warfarin, diabetes type II, chronic kidney disease type III, hypertension, history of pulmonary embolism, COPD, systolic CHF with previous EF of 10-15%, comes from [facility], admitted due to altered level of consciousness. Shock. Present on admission. Active. -Uncertain etiology. Hypovolemic versus cardiogenic versus septic shock -Blood pressures maintained with norepinephrine Possible Bacteremia, present on admission, active -Early blood cultures show 1 positive for gram-positive cocci, other blood cultures remain negative. -Continue IV cefepime Acute hypercarbic hypoxic respiratory failure. Present on admission. Active. -Patient with previous admission 5 years ago for acute respiratory failure. Attributed at that time in part to obesity hypoventilation syndrome and untreated sleep apnea. -ABG this morning consistent with mild respiratory alkalosis, propofol stopped as an attempt to trial the patient on pressure support. -ICU team to monitor vent settings -Repeat ABG tomorrow morning Acute on chronic decompensated heart failure. Present on admission. Active. - Echocardiogram in 2011 showed an EF of 10-15%. -12/03 echocardiogram shows EF of 20-25% other findings as above -Fluid resuscitation initiated for presumed septic shock. Pt received 1L NS. -Held home carvedilol, losartan, digoxin, furosemide and spironolactone Severe anemia, likely acute on chronic. Present on admission. Active. -Uncertain etiology. Possibly chronic, possibly due to acute blood loss secondary to GI bleed in setting of CKD stage 3. Patient unconscious at presentation and unable to provide additional history. -No obvious source for bleeding on exam. -Hb 5.8 at presentation, transfused 2units pRBCs on 12/03 -CT abd/pelvis shows no obvious source of bleeding -Currently holding stable, Continue to Monitor H/H -Transfusion threshold Hb < 7.0 Acute on chronic kidney disease stage 3. Present on admission. Active. -Likely secondary to diabetes and longstanding hypertension. Creatinine at presentation 3.71 with unknown baseline. -Nephrology following Hyperkalemia, acute. Present on admission. Resolved -Likely multifactorial, secondary to acute on chronic renal failure, lactic acidosis and medications (losartan, spironolactone). -Potassium currently within normal limits. -Nephrology following Anion gap metabolic acidosis. Present on admission. Improving -Likely secondary to lactic acidosis and acute on chronic renal failure. Atrial fibrillation anticoagulated on Warfarin, chronic. Present on admission. Active. -Patient chronically anticoagulated on Warfarin with supratherapeutic INR on admission. -Warfarin held - Still on amiodarone drip as started in the ER, HR currently controlled, consider discontinuing and switching to PO medications Supra-therapeutic INR, acute. Present on admission. Active. -INR 4.4 on admission -Warfarin held Type 2 diabetes mellitus, chronic. Present on admission. Active. - Serum glucose 236 on admission. Home treated with Metformin, non-insulin dependent. - Insulin drip discontinued, bridged to subcutaneous insulin - HbA1c 6.5 - Correctional regular insulin Elevated troponin, likely chronic. Present on admission. Active. -Likely secondary to stress and CKD. ECG without acute ischemic changes. -Troponin undulating since admission Urinary tract infection, acute. Present on admission. Active. -Unable to assess for UTI symptoms due to patient condition. Patient's brother present at time of admission and reports a history of UTIs. -UA consistent with infection, urine culture showing Escherichia coli sensitive to cefepime -Continue IV cefepime -Continue broad spectrum antibiotics in setting of shock and pending cultures. Hypertension, chronic. Present on admission. -Held home antihypertensives: Carvedilol 3.125mg PO BID Digoxin 125mcg PO daily Furosemide 40mg PO daily Spironolactone 12.5mg PO daily History of dementia. Present on admission. Presumed stable. -Held donepezil CODE STATUS: LIMITED INTERVENTIONS. Discussed code status with family and confirmed NO CHEST COMPRESSION and short term INTUBATION only. GI Prophylaxis: IV protonix as above for probable GI bleed DVT Prophylaxis: Sub-q Heparin held on admission for supratherapeutic INR of 4.4. PRN: Acetaminophen-fever/headache/mild/moderate pain Bowel regimen, as needed. Disposition: Prognosis remains guarded as patient continues on the vent. Once she is extubated plans will be made at that time for discharge back to senior care facility. VTE Mechanical Devices: Intermittant Pneumatic CD Resuscitation Status: Limited Interventions (No chest compressions/no defibrillation) Attending Statement The patient was seen and examined together with Dr. Ledezma on 12/04/16 and I have added additional information to the note above. Horace Ledezma DO Dec 04, 2016 19:10 Heather Thacker DO Dec 05, 2016 16:51
[2016-12-04] MEDS: Insulin LISPRO 300 Unit/3 mL Inj SUBQ SCH (20:44)
[2016-12-04] MEDS ORDERED: KCl 20 mEq/100 mL(CENTRAL) 20 MEQ in IV Premix 1 EACH IV ONE (23:25)
[2016-12-05] VITALS (7 sets, daily range): BP systolic 92–155; BP diastolic 40–80; PULSE 42–71; RESP 18–21; O2SAT 92–100
[2016-12-05] MEDS: Chlorhexidine 0.12% 15 mL Oral Solution MT SCH ×9 (00:20→21:44)
[2016-12-05] MEDS: Linezolid Inj 600 MG in IV Premix 1 EACH IV SCH ×2 (00:28→11:28)
[2016-12-05] MEDS ORDERED: Propofol 10,000 mCg/mL 100 mL Inj ONE (00:33)
[2016-12-05] MEDS: Cefepime 1,000 MG in Dextrose 5% Minibag Plus 50 ML IV SCH (01:39)
[2016-12-05] MEDS: 0.9% Sodium Chloride 1,000 ML IV SCH ×4 (01:39→15:26)
[2016-12-05] MEDS: fentaNYL-PF 50 mCg/mL 2 mL Inj IVPUSH PRN ×2 (02:23→20:25)
[2016-12-05] MEDS: Propofol Inj 1,000,000 MCG in IV Premix 1 EACH IV SCH ×2 (02:46→20:07)
[2016-12-05] MEDS: Amiodarone 360 mg/200 mL D5W 360 MG in IV Premix 1 EACH IV SCH ×2 (04:58→17:57)
[2016-12-05] MEDS: Norepineph 8,000 mCg/250 mL NS 8,000 MCG in IV Premix 1 EACH IV SCH ×2 (04:58→20:07)
--- NOTE | 2016-12-05 06:41 | NUR ---
Sedation Pt rests, any noise or movement/touch of patient and she opens her eyes, squeezes hands and tries to hurt others by jabbing her fingernails into staff. Propofol restarted per Dr. Huynh. Propofol at 5mcg/kg/minute, subsequently increased to 10mcg/kg/minute with occasional 1ml boluses for increased agitation. PRN Fentanyl Pushes given for pain. Per RN-RN report, planning for patient to be extubated today so sedation has been kept light.
[2016-12-05 06:45] LABS: Mean Corpuscular Hemoglobin 24.4 pg (27.0-35.0); Mean Corpuscular Volume 81.2 fL (81-100)
[2016-12-05 06:59] LABS: INR 1.23 ratio
[2016-12-05] MEDS: Famotidine Inj 20 MG in IV Premix 1 EACH IV SCH (07:30)
--- NOTE | 2016-12-05 09:51 | PCM.PNMED ---
Subjective Date of Service Dec 05, 2016 Subjective Subjective: Patient was somnolent but aroused with light physical stimuli. It looks as if she is progressing towards extubation. Family has decided if she needs to be reintubated that this should be attempted at this time. Events Overnight: No acute events overnight. ROS: Due to the patient being on the vent currently, a review of systems was unable to be obtained. Exam Vital Signs Vital Sign - Last Date Time Temp Pulse Resp B/P Pulse Ox O2 Delivery O2 Flow Rate FiO2 12/05/16 04:57 36.7 42 18 109/45 100 Mechanical Ventilator 30 Intake and Output 12/04/16 12/04/16 12/05/16 Cumulative From/Thru 15:00 23:00 07:00 12/02/16 19:55 - 12/05/16 06:36 Intake Total 1626 ml 2331 ml 8399 ml Output Total 400 ml 410 ml 3060 ml Balance 1226 ml 1921 ml 5339 ml Intake Oral 0 ml 0 ml IV Total 1626 ml 2075 ml 7643 ml Tube Feeding 175 ml 175 ml Packed Cells 300 ml Tube Irrigant 81 ml 281 ml Output Urine Total 400 ml 410 ml 3060 ml Gastric Drainage Total 0 ml 0 ml Other 0 ml # Bowel Movements 1 3 Exam General: GCS of 3 well-developed, no acute distress, currently intubated HEENT: Normocephalic, atraumatic. External ears without defect. Pupils equal, pinpoint, and minimally reactive to light. Anicteric sclerae, moist conjunctivae. Cardiovascular: Bradycardic with systolic murmur, no rubs, or gallops appreciated Pulmonary: Patient currently intubated, coarse breath sounds in all lung solis , no wheezes, or rhonchi appreciated Abdomen: Bowel tones present. Soft, nontender, nondistended. Extremities: No clubbing, cyanosis, edema Skin: Normal temperature, turgor, and texture; no rash, ulcers, or subcutaneous nodules appreciated. Neurological: Unable to assess as patient is currently sedated Psychiatric: Unable to assess as patient is currently sedated IVs and Medications IV Fluids 1950 ml normal saline delivered with IV medications Medications Reviewed: Medications were reviewed in detail Medications High risk medications include: propofol fentanyl amioderone drip Lab and Diagnostics Result Diagram: 12/05/16 0630 12/05/16 0630 Microbiology 12/02/16 Blood Culture- pending 12/02/16 Urine Culture- pending 12/02/16 MRSA screen- pending X-Rays, CTs and MRIs (12/02/16) X-RAY CHEST ONE VIEW, PORTABLE INDICATIONS: 81 year-old female with dyspnea and bradycardia. IMPRESSION: Endotracheal tube is in expected position. Decreased lung volumes. Dictated and approved by: Rl Mccollum M.D. on 12/02/2016 at 16:42 (12/02/16) CT BRAIN WITHOUT CONTRAST INDICATIONS: altered LOC, COMA IMPRESSION: Moderate microvascular atherosclerotic change in the deep white matter of each hemisphere but no acute disease is seen. No change management manager time. Dictated and approved by: Terry Lemus M.D. on 12/02/2016 at 18:30 X-RAY CHEST ONE VIEW, PORTABLE IMPRESSION: Gastric tube in normal position. Dictated by: Terry Lemus M.D. on 12/02/2016 at 18:37 Approved by: Terry Lemus M.D. on 12/02/2016 at 18:37 (12/02/16) X-RAY CHEST ONE VIEW, PORTABLE INDICATIONS: line placement IMPRESSION: Bilateral pneumonia right greater than left, lines and tubes appear in normal position considering patient rotation leftward. Dictated and approved by: Terry Lemus M.D. on 12/02/2016 at 21:25 Cardiac Echo Impressions Echocardiogram The left ventricle is moderately dilated. Left ventricular wall thickness is mildly increased. Left ventricular systolic function is severely reduced. The ejection fraction is estimated to be 20-25%. LVEF has not significantly changed since prior study. Assessment of diastolic parameters suggests a pseudonormalization pattern, consistent with elevated filling pressures. The right ventricle is moderately dilated. There is no mass or thrombus in the right ventricle. Right ventricular systolic function is moderately reduced and has mildly improved since prior study. Right ventricular systolic pressure is estimated to be 48 mmHg plus the clinically estimated CVP which cannot be estimated on this exam. The left atrium is severely dilated. The right atrium is moderately dilated. There is moderate mitral regurgitation. MR has decreased. There is no other significant valvular heart disease. The aortic root is normal size. Assessment & Plan 81 year-old lady with a history of dementia, Afib chronically anticoagulated on warfarin, diabetes type II, chronic kidney disease type III, hypertension, history of pulmonary embolism, COPD, systolic CHF with previous EF of 10-15%, comes from [facility], admitted due to altered level of consciousness. Shock. Present on admission. Active. -Uncertain etiology. Hypovolemic, cardiogenic versus septic shock Bacteremia, present on admission, active -Blood cultures show 1 positive for Staph epidermadis, The other blood culture shows no growth. -IV cefepime changed to Zosyn for broader coverage. Acute hypercarbic hypoxic respiratory failure. Present on admission. Active. -Patient with previous admission 5years ago for acute respiratory failure. Attributed at that time in part to obesity hypoventilation syndrome and untreated sleep apnea. -Trial of pressure support went well on 12/04, possibly continue to wean propofol attempt extubation if tolerated. -ICU team to monitor vent settings as needed Acute on chronic decompensated heart failure. Present on admission. Active. - Echocardiogram in 2011 showed an EF of 10-15%. -12/03 echocardiogram shows EF of 20-25% other findings as above. -12/04 had a 15 beat run of VTach and was placed on amiodarone gtt, but has been bradycardic since. Will discontinue amiodarone at this time. -Fluid resuscitation initiated for presumed septic shock. -Held home carvedilol, losartan, digoxin, furosemide and spironolactone Severe anemia, likely acute on chronic. Present on admission. Active. -Uncertain etiology. Possibly chronic, possibly due to acute blood loss secondary to GI bleed in setting of CKD stage 3. Patient unconscious at presentation and unable to provide additional history. -No obvious source for bleeding on exam. -Hb 5.8 at presentation, transfused 2units pRBCs on 12/03 -Most recent Hgb 7.5, continue to trend -CT abd/pelvis shows no obvious source of bleeding -Transfusion threshold Hb < 7.0 Acute on chronic kidney disease stage 3. Present on admission. Active. -Likely secondary to diabetes and longstanding hypertension. Creatinine at presentation 3.71 with unknown baseline. -Shows continued improvement -Consulted nephrology Hyperkalemia, acute. Present on admission. Resolved -Likely multifactorial, secondary to acute on chronic renal failure, lactic acidosis and medications (losartan, spironolactone). -Potassium currently within normal limits. -Nephrology consulted Anion gap metabolic acidosis. Present on admission. Improving -Likely secondary to lactic acidosis and acute on chronic renal failure. Atrial fibrillation anticoagulated on Warfarin, chronic. Present on admission. Active. -Patient chronically anticoagulated on Warfarin with supratherapeutic INR on admission. -INR currently subtherapeutic -Warfarin held, continue to hold in light of recent bleeding. Supra-therapeutic INR, acute. Present on admission. Active. -INR 4.4 on admission, currently subtherapeutic -Warfarin held, continue to hold in light of recent bleeding. Type 2 diabetes mellitus, chronic. Present on admission. Active. - Serum glucose 236 on admission. Home treated with Metformin, non-insulin dependent. - Insulin drip discontinued, bridged to subcutaneous insulin - HbA1c 6.5 - Correctional regular insulin Severe Protein malnutrition, POA, active - Started on trophic tube feeds. - adjusting insulin as needed Elevated troponin, likely chronic. Present on admission. Active. -Likely secondary to stress and CKD. ECG without acute ischemic changes. -Troponin undulating since admission Urinary tract infection, acute. Present on admission. Active. -Unable to assess for UTI symptoms due to patient condition. Patient's brother present at time of admission and reports a history of UTIs. -UA consistent with infection, urine culture showing Escherichia coli -Cefepime discontinued in favor of IV Zosyn Hypertension, chronic. Present on admission. Patient is currently hypotensive, with decreased heart rate -Held home antihypertensives: Carvedilol 3.125mg PO BID Digoxin 125mcg PO daily Furosemide 40mg PO daily Spironolactone 12.5mg PO daily History of dementia. Present on admission. Presumed stable. -Held donepezil CODE STATUS: LIMITED INTERVENTIONS. Discussed code status with family and confirmed NO CHEST COMPRESSION and short term INTUBATION only. GI Prophylaxis: IV protonix as above for probable GI bleed DVT Prophylaxis: Sub-q Heparin held on admission for supratherapeutic INR of 4.4. PRN: Acetaminophen-fever/headache/mild/moderate pain Bowel regimen, as needed. Disposition: Prognosis remains guarded as patient continues on the vent. Once she is extubated plans will be made at that time for discharge back to [facility] facility. VTE Mechanical Devices: Intermittant Pneumatic CD Resuscitation Status: Limited Interventions (No chest compressions/no defibrillation) Attending Statement The patient was seen and examined together with Dr. Ledezma on 12/05/16 and I have added additional information to the note above. Horace Ledezma DO Dec 05, 2016 09:51 Heather Thacker DO Dec 06, 2016 17:04
--- NOTE | 2016-12-05 11:20 | ABG ---
DateTimeAnalyzed 11:11:47 -_ pH ____7.322 - 7.320 7.420 pCO2 ___37.0__ -mmHg 41.0 51.0 pO2 ___25.5__ -mmHg 24.0 40.0 HCO3- ___19.2__ -mmol/L 22.0 26.0 ABE ___-6.3__ -mmol/L -2.0 2.0 tHb ____8.3__ -g/dL 12.0 18.0 O2Hb ___41.2__ -% COHb ____1.6__ -% 0.0 1.5 MetHb ____0.5__ -% 0.4 1.5 sO2 ___42.1__ -% FIO2 ___30.0__ -% Pressure_Support ____5.0__ -cmH2O PEEP ____5.0__ -cmH2O Vt __415.0__ -L Drawn By as - Date/Time Notified____ 11:20:00 -_ Spontaneous_RR 14 -b/min Notified By ams - Notified Whom dr Hagenbarth - K+ ____3.4__ -mmol/L 3.5 5.0 tO2 ____4.8__ -Vol% Aureliano test N/A -
[2016-12-05] MEDS: Insulin LISPRO 300 Unit/3 mL Inj SUBQ SCH ×4 (11:30→20:07)
--- NOTE | 2016-12-05 12:04 | PCM.PNMED ---
Subjective Date of Service Dec 05, 2016 Subjective ICU Progress Note Patient is a 81 year-old lady with a history of dementia, afib chronically anticoagulated on warfarin, diabetes type II, chronic kidney disease type III, hypertension, history of pulmonary embolism, COPD, systolic CHF with previous EF of 10-15% who was admitted from [facility] due to altered level of consciousness. Intubated for agitation and agonal breathing. Overnight, the patient became increasingly agitated and propofol gtt was restarted, and titrated up to 10 mcg/kg/min with occasional boluses of propofol and fentanyl. This morning she was poorly responsive but began to wake up as the propofol was weaned off. Exam Vital Signs Vital Sign - Last Date Time Temp Pulse Resp B/P Pulse Ox O2 Delivery O2 Flow Rate FiO2 12/05/16 04:57 36.7 42 18 109/45 100 Mechanical Ventilator 30 Intake and Output 12/04/16 12/04/16 12/05/16 Cumulative From/Thru 15:00 23:00 07:00 12/02/16 19:55 - 12/05/16 06:36 Intake Total 1626 ml 2331 ml 8399 ml Output Total 400 ml 410 ml 3060 ml Balance 1226 ml 1921 ml 5339 ml Intake Oral 0 ml 0 ml IV Total 1626 ml 2075 ml 7643 ml Tube Feeding 175 ml 175 ml Packed Cells 300 ml Tube Irrigant 81 ml 281 ml Output Urine Total 400 ml 410 ml 3060 ml Gastric Drainage Total 0 ml 0 ml Other 0 ml # Bowel Movements 1 3 Exam General: Awake but confused and somewhat agitated with any stimulation. No acute distress while at rest. Head: Normocephalic, atraumatic. External ears normal. Eyes: PERRLA, EOMI. Anicteric sclerae. Mouth: Mouth normal, Mucous membranes moist/pink Neck: Neck supple with full range of motion. Chest& Lungs: Bradycardic with soft systolic murmur. Cardiovascular: Regular rate/rhythm, Normal S1, Normal S2, No murmurs/rubs/ gallops Abdomen: Non-tender, Non-distended, No masses, Normoactive bowel tones, Soft Musculoskeletal: Normal range of motion Extremities: No edema bilaterally. Right foot deformity. Neurological: Awake but disoriented, not interactive. Ventilator FiO2: 30 PEEP set at 5, fixed at 9 with no auto-PEEP RR 14 VT 440 Peak 18 Plat 16 Lab and Diagnostics Result Diagram: 12/05/16 0630 12/05/16 0630 Microbiology 12/02/16 Blood Culture- pending 12/02/16 Urine Culture- pending 12/02/16 MRSA screen- pending X-Rays, CTs and MRIs (12/02/16) X-RAY CHEST ONE VIEW, PORTABLE INDICATIONS: 81 year-old female with dyspnea and bradycardia. IMPRESSION: Endotracheal tube is in expected position. Decreased lung volumes. Dictated and approved by: Rl Mccollum M.D. on 12/02/2016 at 16:42 (12/02/16) CT BRAIN WITHOUT CONTRAST INDICATIONS: altered LOC, COMA IMPRESSION: Moderate microvascular atherosclerotic change in the deep white matter of each hemisphere but no acute disease is seen. No change analyst time. Dictated and approved by: Terry Lemus M.D. on 12/02/2016 at 18:30 X-RAY CHEST ONE VIEW, PORTABLE IMPRESSION: Gastric tube in normal position. Dictated by: Terry Lemus M.D. on 12/02/2016 at 18:37 Approved by: Terry Lemus M.D. on 12/02/2016 at 18:37 (12/02/16) X-RAY CHEST ONE VIEW, PORTABLE INDICATIONS: line placement IMPRESSION: Bilateral pneumonia right greater than left, lines and tubes appear in normal position considering patient rotation leftward. Dictated and approved by: Terry Lemus M.D. on 12/02/2016 at 21:25 Cardiac Echo Impressions Echocardiogram The left ventricle is moderately dilated. Left ventricular wall thickness is mildly increased. Left ventricular systolic function is severely reduced. The ejection fraction is estimated to be 20-25%. LVEF has not significantly changed since prior study. Assessment of diastolic parameters suggests a pseudonormalization pattern, consistent with elevated filling pressures. The right ventricle is moderately dilated. There is no mass or thrombus in the right ventricle. Right ventricular systolic function is moderately reduced and has mildly improved since prior study. Right ventricular systolic pressure is estimated to be 48 mmHg plus the clinically estimated CVP which cannot be estimated on this exam. The left atrium is severely dilated. The right atrium is moderately dilated. There is moderate mitral regurgitation. MR has decreased. There is no other significant valvular heart disease. The aortic root is normal size. Assessment & Plan Patient is a 81 year-old lady with a history of dementia, afib chronically anticoagulated on warfarin, diabetes type II, chronic kidney disease type III, hypertension, history of pulmonary embolism, COPD, systolic CHF with previous EF of 10-15% who was admitted from [facility] due to altered level of consciousness. Intubated for agitation and agonal breathing. Acute hypercarbic hypoxic respiratory failure. Present on admission. Resolving. -Patient with previous admission 5 years ago for acute respiratory failure. Attributed at that time in part to obesity hypoventilation syndrome and untreated sleep apnea. Trial of pressure support went well yesterday and today. Will extubate today. Discussed the patient's medical course and frailty to the family, including her risk of intubation. Palliative care is also involved. Family states they wish for her to be reintubated if required. - Plan to extubate today. - Palliative care is following Acute urinary tract infection. Present on admission. - Pt initially presented with possible septic shock with lactic acidosis and hypotension with elevated WBC and borderline procalcitonin. She was placed on broad spectrum antibiotic coverage with cefepime and linezolid. Blood cultures reveal coag negative staph. UA shows 11-50 WBCs, large leukocyte esterase, negative nitrite, many bacteria. Urine culture positive for E coli resistant to quinolones, Bactrim, and nitrofurantoin. Will narrow the spectrum of antibiotic coverage as this appears to be the source of her sepsis, but will also cover acute cholecystitis. - Continue NS @ 100 ml/hr - Monitor I/O closely given hx of CHF - Discontinue linezolid and cefepime - Start Zosyn IV Acute cholecystitis. Present on admission. - CT abd/pelvis showed cholelithiasis with gallbladder wall thickening or pericholecystic fluid. Given her current state, the patient is very unlikely to be a surgical candidate - Will cover with Zosyn Chronic systolic heart failure. Present on admission. Active. - Echocardiogram shows EF 20-25% with moderately dilated LV with diastolic dysfunction. RV dilation also noted with moderately reduced RV systolic function. She had a 15 beat run of VTach on 12/04/16 and was placed on amiodarone gtt, but has been bradycardic since. Will discontinue amiodarone at this time. - Discontinue amiodarone - Fluid resuscitation initiated for presumed septic shock. Pt received 1L NS. - Holding home carvedilol, losartan, digoxin, furosemide and spironolactone - Cardiology consulted Microcytic anemia, likely acute on chronic. Present on admission. Active. - Possibly chronic secondary to CKD vs acute blood loss secondary to GI bleed. Hb 5.8 at presentation, transfused 2units pRBCs on 12/03. Hb dropped from 8.1 to 7.4, then increased to 7.5 overnight. No obvious source for bleeding on exam or CT abd/pelvis. Will continue to monitor closely. - Repeat H&H ordered for afternoon. - Transfusion threshold Hb < 7.0 Atrial fibrillation anticoagulated on Warfarin, chronic. Present on admission. Active. - Patient on Warfarin with supratherapeutic INR on admission. - Warfarin held for possible acute blood loss anemia Type 2 diabetes mellitus, chronic. Present on admission. Active. - Serum glucose 236 on admission, now 196. HbA1c 6.5 - Insulin drip discontinued - Lantus 20 U - Humalog medium dose correctional scale Nutrition: Continue trophic tube feeds. CODE STATUS: Palliative Care team discussed Code status with family. Brother/ POA Jorge Luis wishes for her to be reintubated if required. New POLST form signed indicating limited interventions - no CPR but intubate if necessary. VTE Mechanical Devices: Intermittant Pneumatic CD Resuscitation Status: Limited Interventions (No chest compressions/no defibrillation) Attending Statement The patient was seen and examined together with Dr. Walter on 12/05/2016 and I have added additional information to the note above. Time spent in critical care: 55 min Shree Walter Dec 05, 2016 12:04 Geoff rOo MD Dec 12, 2016 10:09 Elevated troponin, likely chronic. Present on admission. Active. -Likely secondary to stress and CKD. ECG without acute ischemic changes. -Troponin undulating since admission Urinary tract infection, acute. Present on admission. Active. -Unable to assess for UTI symptoms due to patient condition. Patient's brother present at time of admission and reports a history of UTIs. -UA consistent with infection, urine culture showing Escherichia coli sensitive to cefepime -Continue IV cefepime -Continue broad spectrum antibiotics in setting of shock and pending cultures. Hypertension, chronic. Present on admission. -Held home antihypertensives: Carvedilol 3.125mg PO BID Digoxin 125mcg PO daily Furosemide 40mg PO daily Spironolactone 12.5mg PO daily History of dementia. Present on admission. Presumed stable. -Held donepezil CODE STATUS: LIMITED INTERVENTIONS. Discussed code status with family and confirmed NO CHEST COMPRESSION and short term INTUBATION only. GI Prophylaxis: IV protonix as above for probable GI bleed DVT Prophylaxis: Sub-q Heparin held on admission for supratherapeutic INR of 4.4. PRN: Acetaminophen-fever/headache/mild/moderate pain Bowel regimen, as needed. Disposition: Prognosis remains guarded as patient continues on the vent. Once she is extubated plans will be made at that time for discharge back to longterm facility. VTE Mechanical Devices: Intermittant Pneumatic CD Resuscitation Status: Limited Interventions (No chest compressions/no defibrillation) Shree Walter Dec 05, 2016 12:04
[2016-12-05] MEDS ORDERED: cefTRIAXone Inj 2,000 MG in Dextrose 5% Minibag Plus 50 ML IV SCH (12:10)
--- NOTE | 2016-12-05 15:22 | PCM.PALLBR ---
Palliative Care Recommendation Summary of palliative recommendations: -Symptom management (Pain/other)- continued management per her medical/critical care teams 12/05: Dr. Kuhn called brother Jorge Luis (pt's POA) to inform him that his sister is now extubated. He will come visit her later tonight. -DPOA/Advanced Directives/POLST- On three separate occasions, night of admission, 12/03 (with Dr. Morgan of Palliative Care Team) and 12/04 (with Dr. Kuhn , PC Team), her brother/POA Jorge Luis indicates that while the family does not want her to undergo CPR or defibrillation, but they were willing to have her hospitalized and be on the ventilator for short period of time in hopes that she would recover. They say that this is consistent with wishes she expressed in the past, before she became demented, and they want to honor her wishes from that past time. -Family/emotional support- palliative team will continue to follow, provide support, and assist the family in setting realistic goals for care. Dr. Kuhn and Inga Starkey met with Jorge Luis and his son at pt's bedside today. Jorge Luis wants to have his sister re-intubated if she is not able to breathe on her own after extubation this admission. After much discussion and counseling, Jorge Luis signed a POLST stating: DNR with FULL interventions. Copies of POLST given to Jorge Luis and one copy in PC Office. Original POLST (NEW on 12/04) is now on patient's hospital chart. Problems: End of Life Preferences DNR (No CPR/no defibrillation) but otherwise, FULL treatment, including re- intubation, if necessary. (12/04) Goals of Care Patient's family hopes she recovers to return to her SNF in premorbid state Disposition To be determined Resuscitation Status Resuscitation Status: Limited Interventions (No chest compressions/no defibrillation) POLST Updates/Changes Previous POLST?: Yes POLST Last Review Date: Dec 03, 2016 POLST Discussed with: Health Care Agent ([facility]POA[facility]) POLST Review Outcome: Form Voided Total time 25 minutes; >50% face to face with patient and/or family, providing counselling regarding plans and recommendations, and in care coordination with his/her medical teams. Palliative Brief Note Date of Service Dec 05, 2016 . Patient Identification: Reina Styles is a 81-year-old female with advanced dementia, severe CHF with EF 10-15%, chronic full anticoagulation secondary to atrial fibrillation and PE, chronic renal failure, etc. admitted with altered level of consciousness, respiratory failure, probable sepsis, hypotension, severe anemia, renal failure, etc. She was intubated on admission due to decreased LOC. Hospital Course: Palliative medicine consulted to assist patient and family and determination of goals of care because her intermediate POLST was inconsistent with both orders for CPR and DNR checked on it. This was an old document from 2013 signed by a PCP who is no longer practicing. On follow-up visit today, I reviewed her records in the EMR and spoke with her CCU RN and listened to CCU rounds discussion of the patient. She remains intubated and mildly sedated, but improving somewhat and after about a 3 hours in-room dialysis, the plan is to attempt extubation. On follow-up this afternoon , I find she was successfully extubated around noon today, and breathing on room air, except when she sleeps, the RN has added NC at 2 LPM as pt tends to breathe less. Exam Elderly woman in CCU bed, awake, grasping my hands. Makes inarticulate sounds, no clear words, unable to follow commands. HEENT: Head and neck exam without other acute findings. Very [place], but even when using loud voice, pt not responding to commands. Lungs: coarse breath sounds, scattered crackles Heart: S1,S2, rrr. Abdomen: soft, NT, nondistended. Skin is pale, warm and dry. Extremities, SCDs on lower extremities, non-pitting edema. Neuro: awake, distracted. Pulses: intact 2+ Danielle Kuhn MD Dec 05, 2016 15:22
--- NOTE | 2016-12-05 16:17 | NUR ---
Extubate Amiodarone and Propofol stopped at 1000. Tolerated extubation at 1200 on RA 98% Tube feed stopped and dc'd at extubation. NPO at this time. Pt family at bedside. Pt drowsy and not following commands. Moran draining feely. No BM. Right IJ patent. Mepilex on coccyx changed. SB in the 40-50's.
[2016-12-05] MEDS: Insulin GLARgine 100 Unit/mL Syringe SUBQ SCH (20:24)
[2016-12-05] MEDS: Piperacillin-Tazo 3.375 Gm Inj 3.375 GM in Dextrose 5% Minibag Plus 50 ML IV SCH (20:24)
[2016-12-06] VITALS (7 sets, daily range): BP systolic 94–147; BP diastolic 45–75; PULSE 59–68; RESP 16–26; O2SAT 94–98
[2016-12-06] MEDS: fentaNYL-PF 50 mCg/mL 2 mL Inj IVPUSH PRN (00:10)
[2016-12-06] MEDS ORDERED: Furosemide 10 mg/mL 2 mL Inj IVPUSH ONE (01:20)
[2016-12-06] MEDS: Amiodarone 360 mg/200 mL D5W 360 MG in IV Premix 1 EACH IV SCH ×2 (03:37→14:42)
[2016-12-06 04:03] LABS: INR 1.2 ratio
[2016-12-06 04:48] LABS: BASOPHILS % (AUTO) 0.1 % (0-3); EOSINOPHILS % (AUTO) 1.1 % (0-5); MONOCYTES % (AUTO) 4.9 % (4-12); Mean Corpuscular Hemoglobin 24.4 pg (27.0-35.0); NEUTROPHILS % (AUTO) 85.5 % (40-74); Platelet Count 114 bil/L (150-400)
[2016-12-06] MEDS ORDERED: KCl 20 mEq/100 mL IV Premix (K 3 - 3.7 & Cr 2.1 - 2.9) IV ONE (05:40)
--- NOTE | 2016-12-06 05:50 | NUR ---
RM/Agitation/Tele Pt has severe sleep apnea when resting. She will have long pauses (3-10 second) in between breaths and will desaturate to SpO2 low 80s. Recovers quickly with breath. Remained RA all night. Pt barron snot follow commands and still gets agitated with pt care and will grab at staff to pinch them away. Tele also remains ?SR vs. Afib (very irregular) with very frequent multifocal PVCs. K is low. Awaiting rider. Care ongoing
[2016-12-06] MEDS: Piperacillin-Tazo 3.375 Gm Inj 3.375 GM in Dextrose 5% Minibag Plus 50 ML IV SCH ×2 (08:29→21:44)
[2016-12-06] MEDS: Chlorhexidine 0.12% 15 mL Oral Solution MT SCH ×2 (08:30→12:30)
[2016-12-06] MEDS: Famotidine Inj 20 MG in IV Premix 1 EACH IV SCH (08:43)
--- NOTE | 2016-12-06 10:25 | PCM.PNMED ---
Subjective Date of Service Dec 06, 2016 Subjective Pulmonary Progress Note Patient is a 81 year-old lady with a history of dementia, afib chronically anticoagulated on warfarin, diabetes type II, chronic kidney disease type III, hypertension, history of pulmonary embolism, COPD, systolic CHF with previous EF of 10-15% who was admitted from [facility] due to altered level of consciousness. Intubated for agitation and agonal breathing. Patient was extubated yesterday without complications. Her mental status remains significantly altered, although this may be her baseline. Overnight, she had frequent apneic episodes while sleeping, holding her breath for up to 10 seconds and desaturating to the 80s, but her O2 sats normalized when she resumed breathing. Telemetry shows frequent PVCs. Today, she is nonverbal and does not engage or follow commands. Exam Vital Signs Vital Sign - Last Date Time Temp Pulse Resp B/P Pulse Ox O2 Delivery O2 Flow Rate FiO2 12/06/16 09:30 68 12/06/16 08:35 Supplement Oxygen 12/06/16 08:35 37.1 24 94/62 94 12/05/16 08:30 30 Intake and Output 12/05/16 12/05/16 12/06/16 Cumulative From/Thru 15:00 23:00 07:00 12/02/16 19:55 - 12/06/16 05:53 Intake Total 1109 ml 9508 ml Output Total 800 ml 3860 ml Balance 309 ml 5648 ml Intake Oral 0 ml IV Total 1109 ml 8752 ml Tube Feeding 175 ml Packed Cells 300 ml Tube Irrigant 281 ml Output Urine Total 800 ml 3860 ml Gastric Drainage Total 0 ml Other 0 ml # Bowel Movements 0 3 Exam General: Awake and disoriented, nonverbal, not following commands or making eye contact. Head: Normocephalic, atraumatic. External ears normal. Eyes: PERRLA, EOMI. Anicteric sclerae. Mouth: Mouth normal, Mucous membranes moist/pink Neck: Neck supple with full range of motion. Chest& Lungs: Bradycardic with soft systolic murmur. Cardiovascular: Regular rate/rhythm, Normal S1, Normal S2, No murmurs/rubs/ gallops Abdomen: Non-tender, Non-distended, No masses, Normoactive bowel tones, Soft Musculoskeletal: Normal range of motion Extremities: No edema bilaterally. Right foot deformity. Left foot with healing ulcers. Neurological: Awake but disoriented, not interactive. Lab and Diagnostics Result Diagram: 12/06/16 0435 12/06/16 0330 Microbiology 12/02/16 Blood Culture- pending 12/02/16 Urine Culture- pending 12/02/16 MRSA screen- pending X-Rays, CTs and MRIs (12/02/16) X-RAY CHEST ONE VIEW, PORTABLE INDICATIONS: 81 year-old female with dyspnea and bradycardia. IMPRESSION: Endotracheal tube is in expected position. Decreased lung volumes. Dictated and approved by: Rl Mccollum M.D. on 12/02/2016 at 16:42 (12/02/16) CT BRAIN WITHOUT CONTRAST INDICATIONS: altered LOC, COMA IMPRESSION: Moderate microvascular atherosclerotic change in the deep white matter of each hemisphere but no acute disease is seen. No change of address clerk time. Dictated and approved by: Terry Lemus M.D. on 12/02/2016 at 18:30 X-RAY CHEST ONE VIEW, PORTABLE IMPRESSION: Gastric tube in normal position. Dictated by: Terry Lemus M.D. on 12/02/2016 at 18:37 Approved by: Terry Lemus M.D. on 12/02/2016 at 18:37 (12/02/16) X-RAY CHEST ONE VIEW, PORTABLE INDICATIONS: line placement IMPRESSION: Bilateral pneumonia right greater than left, lines and tubes appear in normal position considering patient rotation leftward. Dictated and approved by: Terry Lemus M.D. on 12/02/2016 at 21:25 Cardiac Echo Impressions Echocardiogram The left ventricle is moderately dilated. Left ventricular wall thickness is mildly increased. Left ventricular systolic function is severely reduced. The ejection fraction is estimated to be 20-25%. LVEF has not significantly changed since prior study. Assessment of diastolic parameters suggests a pseudonormalization pattern, consistent with elevated filling pressures. The right ventricle is moderately dilated. There is no mass or thrombus in the right ventricle. Right ventricular systolic function is moderately reduced and has mildly improved since prior study. Right ventricular systolic pressure is estimated to be 48 mmHg plus the clinically estimated CVP which cannot be estimated on this exam. The left atrium is severely dilated. The right atrium is moderately dilated. There is moderate mitral regurgitation. MR has decreased. There is no other significant valvular heart disease. The aortic root is normal size. Assessment & Plan Patient is a 81 year-old lady with a history of dementia, afib chronically anticoagulated on warfarin, diabetes type II, chronic kidney disease type III, hypertension, history of pulmonary embolism, COPD, systolic CHF with previous EF of 10-15% who was admitted from [facility] due to altered level of consciousness. Intubated for agitation and agonal breathing. Acute hypercarbic hypoxic respiratory failure. Present on admission. Resolved. - Patient was extubated yesterday with no complications. She has had episodes of apnea overnight but has otherwise been stable. With her current mental status , she would not tolerate a BiPAP. Discussed the patient's medical course and frailty to the family, including her risk of intubation. Palliative care is also involved. Family states they wish for her to be reintubated if required. - We will sign off for now. Please contact us with any other questions. Acute urinary tract infection. Present on admission. - Pt initially presented with possible septic shock with lactic acidosis and hypotension with elevated WBC and borderline procalcitonin. She was placed on broad spectrum antibiotic coverage with cefepime and linezolid. Blood cultures reveal coag negative staph. UA shows 11-50 WBCs, large leukocyte esterase, negative nitrite, many bacteria. Urine culture positive for E coli resistant to quinolones, Bactrim, and nitrofurantoin. Will narrow the spectrum of antibiotic coverage as this appears to be the source of her sepsis, but will also cover acute cholecystitis. - Continue NS @ 100 ml/hr - Monitor I/O closely given hx of CHF - Continue Zosyn Acute cholecystitis. Present on admission. - CT abd/pelvis showed cholelithiasis with gallbladder wall thickening or pericholecystic fluid. Given her current state, the patient is very unlikely to be a surgical candidate - Will cover with Zosyn Chronic systolic heart failure. Present on admission. Stable. - Echocardiogram shows EF 20-25% with moderately dilated LV with diastolic dysfunction. RV dilation also noted with moderately reduced RV systolic function. She had a 15 beat run of VTach on 12/04/16 and continues to have frequent PVCs. Currently on amiodarone gtt. - Continuing amiodarone gtt - Fluid resuscitation initiated for presumed septic shock. Pt received 1L NS. - Holding home carvedilol, losartan, digoxin, furosemide and spironolactone - Cardiology consulted Microcytic anemia, likely acute on chronic. Present on admission. Stable. - Possibly chronic secondary to CKD vs acute blood loss secondary to GI bleed. Hb 7.5 yesterday, improved spontaneously to 8.6 today. No obvious source for bleeding on exam or CT abd/pelvis. - Transfusion threshold Hb < 7.0 Atrial fibrillation anticoagulated on Warfarin, chronic. Present on admission. Active. - Patient on Warfarin with supratherapeutic INR on admission. - Warfarin held for possible acute blood loss anemia Type 2 diabetes mellitus, chronic. Present on admission. Active. - Serum glucose 236 on admission, now 196. HbA1c 6.5 - Insulin drip discontinued - Lantus 20 U - Humalog medium dose correctional scale Nutrition: Continue trophic tube feeds. CODE STATUS: Palliative Care team discussed Code status with family. Brother/ POA Jorge Luis wishes for her to be reintubated if required. New POLST form signed indicating limited interventions - no CPR but intubate if necessary. VTE Mechanical Devices: Intermittant Pneumatic CD Resuscitation Status: Limited Interventions (No chest compressions/no defibrillation) Attending Statement The patient was seen and examined together with Dr. Walter on 12/06/2016 and I agree with the history, exam and plan as outlined in the note above. Shree Walter Dec 06, 2016 10:24 Geoff Oro MD Dec 12, 2016 10:23 Urinary tract infection, acute. Present on admission. Active. -Unable to assess for UTI symptoms due to patient condition. Patient's brother present at time of admission and reports a history of UTIs. -UA consistent with infection, urine culture showing Escherichia coli sensitive to cefepime -Continue IV cefepime -Continue broad spectrum antibiotics in setting of shock and pending cultures. Hypertension, chronic. Present on admission. -Held home antihypertensives: Carvedilol 3.125mg PO BID Digoxin 125mcg PO daily Furosemide 40mg PO daily Spironolactone 12.5mg PO daily History of dementia. Present on admission. Presumed stable. -Held donepezil CODE STATUS: LIMITED INTERVENTIONS. Discussed code status with family and confirmed NO CHEST COMPRESSION and short term INTUBATION only. GI Prophylaxis: IV protonix as above for probable GI bleed DVT Prophylaxis: Sub-q Heparin held on admission for supratherapeutic INR of 4.4. PRN: Acetaminophen-fever/headache/mild/moderate pain Bowel regimen, as needed. Disposition: Prognosis remains guarded as patient continues on the vent. Once she is extubated plans will be made at that time for discharge back to [facility] facility. VTE Mechanical Devices: Intermittant Pneumatic CD Resuscitation Status: Limited Interventions (No chest compressions/no defibrillation) Shree Walter Dec 06, 2016 10:24
--- NOTE | 2016-12-06 11:56 | NUR ---
Evaluation completed. Please go to "Notes" then click on "Assessments and Notes" (bottom left corner of screen). Then select appropriate discipline tab on top of screen.
[2016-12-06] MEDS: Nystatin 100,000 Unit/Gm 15 Gm Powder TOPICAL SCH ×2 (12:38→21:44)
[2016-12-06] MEDS: Insulin LISPRO 300 Unit/3 mL Inj SUBQ SCH ×3 (12:53→21:44)
--- NOTE | 2016-12-06 12:54 | NUR ---
Inpatient Wound Nurse Patient seen for skin changes on L gluteal. In interglueal fold a wound measuring 0.5 cm L x 1.0 cm W x <0.1 cm D, beefy red wound bed with slightly peeling edges on proximal margin, very difficult to ascertain if this is pressure injury or skin tear. No erythema is noted over perineum, all areas are blanchable and normal temp and patient is on P500 mattress. This open area is likely skin tear. Patient has long, sharp fingernails and two broken-off fingernail tips were found between patient's skin (at sacrum) and draw sheet. Patient claws at staff as well as self. Wound was cleansed, blotted dry, and covered with bordered Mepliex sacral dressing. L foot 2nd toe dorsal surface, callous removed resulting in 0.25 cm L x 0.25 cm W x 0.2 cm D open area, glossy pink wound bed, edges well adhered, no drainage. 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 Toes have probably rubbed inside of shoe toe box, resulting in callous. R foot noted with significant pes covus or possibly Charcot arthropathy. Patient unable to contribute any meaningful information. No other wounds observed. CWON will see patient Friday for evaluation of intergluteal wound. Nursing staff to change Mepilex bordered sacral dressing PRN. Addendum: 12/06/16 at 1319 by JENNIFER SHIELDS RN Horizontally linear wound noted under R abdominal fold, approximately 0.5 cm L x 5 cm W x 0.1 cm D, beefy red wound bed, small amount of sanguinous drainage, periwound clean, without odor, though small amount of maceration noted. Wound was cleansed, blotted dry, and covered with small piece of Mepilex foam which should allow body moisture to pass through and keep area dry and protected. Nursing staff may change PRN.
--- NOTE | 2016-12-06 13:33 | PCM.PALLBR ---
Palliative Care Recommendation 81-year-old female with advanced dementia (FAST 7-C) severe CHF with EF 10-15% , chronic full anticoagulation secondary to atrial fibrillation and PE, chronic renal failure, etc. admitted with altered level of consciousness, respiratory failure, probable sepsis, hypotension, severe anemia, renal failure, etc. Successfully extubated on 12/05, but remains nonverbal and severely cognitively impaired. Palliative medicine originally consulted to assist family with determination of goals of care. Summary of palliative recommendations: -Symptom management (Pain/other)- continued management per her medical/critical care teams -DPOA/Advanced Directives/POLST- On three separate occasions, night of admission, 12/03 (with Dr. Morgan of Palliative Care Team) and 12/04 (with Dr. Kuhn , PC Team), her brother/POA Jorge Luis indicated that while the family does not want her to undergo CPR or defibrillation, they were willing to have her hospitalized and be on the ventilator for short period of time in hopes that she would recover. In meetings on 12/05, her brother and grandson reiterated these wishes, and indicated that if needed she could be reintubated. They say that this is consistent with wishes she expressed in the past, before she became demented, and they want to honor her wishes from that past time. After much discussion and counseling, Jorge Luis signed a POLST stating: DNR/no CPR/no defibrillation with FULL interventions otherwise. -Family/emotional support- palliative team will continue to follow, provide support, and assist the family in setting realistic goals for care. Problems: End of Life Preferences DNR (No CPR/no defibrillation) but otherwise, FULL treatment, including re- intubation, if necessary. (12/04) Goals of Care Patient's family hopes she recovers to return to her SNF in premorbid state Disposition To be determined Resuscitation Status Resuscitation Status: Limited Interventions (No chest compressions/no defibrillation) POLST Updates/Changes Previous POLST?: Yes POLST Last Review Date: Dec 03, 2016 POLST Discussed with: Health Care Agent (DPOAHC) POLST Review Outcome: Form Voided . Pain: None Total time 35 minutes; >50% face to face with patient, providing counselling regarding plans and recommendations, and in care coordination with her medical teams. Palliative Brief Note Date of Service Dec 06, 2016 . Returned to reevaluate patient. Prior to visiting, reviewed her updated records in the EMR in detail and spoke with her bedside nurse. She was successfully extubated yesterday. On my arrival, she is lying in bed with her eyes open. She briefly tracks to voice but then her eyes wander. She does not reliably follow any commands or otherwise respond appropriately or reliably. Verbalizations are limited to brief moans. No family members are available today. Her physical exam is remarkable for pallor. Vital signs noted. Head and neck exam without other acute findings. Lungs with a few dependent crackles. Heart sounds regular. Abdomen is very soft and without evident tenderness or peritoneal signs. She is seem to spontaneously move all extremities but does not follow any commands. Lab and imaging studies reviewed in detail. Earlier conversations with her family members reviewed again- family remains adamant that, while they do not want CPR or defibrillation, they would want the patient intubated again and want other ongoing aggressive medical care. Slick Morgan MD Dec 06, 2016 13:33
[2016-12-06] MEDS ORDERED: KCl 20 mEq/100 mL(CENTRAL) 20 MEQ in IV Premix 1 EACH IV ONE (14:05)
--- NOTE | 2016-12-06 18:40 | PCM.PNMED ---
Subjective Date of Service Dec 06, 2016 Subjective Subjective: Patient was laying in bed on exam. She is extubated and breathing well on room air however she remains minimally responsive. She is unable to speak or express herself in any way. It is difficult to tell if the patient is in any pain at this time, however she does not grimace with palpation during exam Events Overnight: No acute events overnight. ROS: Due to the patient having dementia, a review of systems was unable to be obtained. Exam Vital Signs Vital Sign - Last Date Time Temp Pulse Resp B/P Pulse Ox O2 Delivery O2 Flow Rate FiO2 12/06/16 16:28 37.0 66 18 146/57 97 Room Air 12/05/16 08:30 30 Intake and Output 12/05/16 12/05/16 12/06/16 Cumulative From/Thru 15:00 23:00 07:00 12/02/16 19:55 - 12/06/16 05:53 Intake Total 1109 ml 9508 ml Output Total 800 ml 3860 ml Balance 309 ml 5648 ml Intake Oral 0 ml IV Total 1109 ml 8752 ml Tube Feeding 175 ml Packed Cells 300 ml Tube Irrigant 281 ml Output Urine Total 800 ml 3860 ml Gastric Drainage Total 0 ml Other 0 ml # Bowel Movements 0 3 Exam General: No acute distress, unable to follow commands. Well-developed, well- nourished HEENT: Normocephalic, atraumatic. External ears without defect. Pupils equal, round, and reactive to light and accommodation. Anicteric sclerae, moist conjunctivae. Unable to focus on subject. Cardiovascular: Regular rate and rhythm with systolic murmur, no rubs, or gallops appreciated Pulmonary: Coarse breath sounds diffusely, no wheezes, or rhonchi. Normal respiratory effort with no use of accessory muscles. Abdomen: Bowel tones present. Soft, nontender, nondistended. Extremities: No clubbing, cyanosis, edema Skin: Normal temperature, turgor, and texture; no rash, moderately sized sacral ulcer, no subcutaneous nodules appreciated. Neurological: Unable to assess as patient is not following commands at this time. Normal muscle strength, tone, and bulk. Psychiatric: Unable to assess IVs and Medications IV Fluids 450 mL normal saline diluted with IV medications. Medications Reviewed: Medications were reviewed in detail Medications High-risk medications include: Amiodarone drip Lab and Diagnostics Result Diagram: 12/06/16 0435 12/06/16 1255 Microbiology 12/02/16 Blood Culture- pending 12/02/16 Urine Culture- pending 12/02/16 MRSA screen- pending X-Rays, CTs and MRIs (12/02/16) X-RAY CHEST ONE VIEW, PORTABLE INDICATIONS: 81 year-old female with dyspnea and bradycardia. IMPRESSION: Endotracheal tube is in expected position. Decreased lung volumes. Dictated and approved by: Rl Mccollum M.D. on 12/02/2016 at 16:42 (12/02/16) CT BRAIN WITHOUT CONTRAST INDICATIONS: altered LOC, COMA IMPRESSION: Moderate microvascular atherosclerotic change in the deep white matter of each hemisphere but no acute disease is seen. No foreign exchange clerk time. Dictated and approved by: Terry Lemus M.D. on 12/02/2016 at 18:30 X-RAY CHEST ONE VIEW, PORTABLE IMPRESSION: Gastric tube in normal position. Dictated by: Terry Lemus M.D. on 12/02/2016 at 18:37 Approved by: Terry Lemus M.D. on 12/02/2016 at 18:37 (12/02/16) X-RAY CHEST ONE VIEW, PORTABLE INDICATIONS: line placement IMPRESSION: Bilateral pneumonia right greater than left, lines and tubes appear in normal position considering patient rotation leftward. Dictated and approved by: Terry Lemus M.D. on 12/02/2016 at 21:25 Cardiac Echo Impressions Echocardiogram The left ventricle is moderately dilated. Left ventricular wall thickness is mildly increased. Left ventricular systolic function is severely reduced. The ejection fraction is estimated to be 20-25%. LVEF has not significantly changed since prior study. Assessment of diastolic parameters suggests a pseudonormalization pattern, consistent with elevated filling pressures. The right ventricle is moderately dilated. There is no mass or thrombus in the right ventricle. Right ventricular systolic function is moderately reduced and has mildly improved since prior study. Right ventricular systolic pressure is estimated to be 48 mmHg plus the clinically estimated CVP which cannot be estimated on this exam. The left atrium is severely dilated. The right atrium is moderately dilated. There is moderate mitral regurgitation. MR has decreased. There is no other significant valvular heart disease. The aortic root is normal size. Assessment & Plan 81 year-old lady with a history of dementia, Afib chronically anticoagulated on warfarin, diabetes type II, chronic kidney disease type III, hypertension, history of pulmonary embolism, COPD, systolic CHF with previous EF of 10-15%, comes from [facility], admitted due to altered level of consciousness. Shock. Present on admission. Resolved -Uncertain etiology. Hypovolemic, cardiogenic versus septic shock Bacteremia, present on admission, active -Blood cultures show 1 positive for Staph epidermadis, The other blood culture shows no growth. -Continue IV Zosyn for broad coverage Acute hypercarbic hypoxic respiratory failure. Present on admission. Resolved -Patient with previous admission 5years ago for acute respiratory failure. Attributed at that time in part to obesity hypoventilation syndrome and untreated sleep apnea. -Patient extubated on 12/05, -Patient downgraded to [facility] 12/06 Acute on chronic decompensated heart failure. Present on admission. Active. - Echocardiogram in 2011 showed an EF of 10-15%. -12/03 echocardiogram shows EF of 20-25% other findings as above. -Continue amiodarone due to infrequent runs of V tach -Discontinued fluid resuscitation. -Held home carvedilol, losartan, digoxin, furosemide and spironolactone until swallow eval can be completed Severe anemia, likely acute on chronic. Present on admission. Active. -Uncertain etiology. Possibly chronic, possibly due to acute blood loss secondary to GI bleed in setting of CKD stage 3. -No obvious source for bleeding -Hb 5.8 at presentation, transfused 2units pRBCs on 12/03 -Most recent Hgb 8.6, continue to trend -CT abd/pelvis shows no obvious source of bleeding -Transfusion threshold Hb < 7.0 Acute on chronic kidney disease stage 3. Present on admission. Active. -Likely secondary to diabetes and longstanding hypertension. Creatinine at presentation 3.71 with unknown baseline. -Shows continued improvement -Consulted nephrology Hyperkalemia, acute. Present on admission. Resolved -Likely multifactorial, secondary to acute on chronic renal failure, lactic acidosis and medications (losartan, spironolactone). -Required potassium IV on 12/06 -Continue to monitor -Nephrology consulted and has signed off Anion gap metabolic acidosis. Present on admission. Improving -Likely secondary to lactic acidosis and acute on chronic renal failure. Atrial fibrillation anticoagulated on Warfarin, chronic. Present on admission. Active. -Patient chronically anticoagulated on Warfarin with supratherapeutic INR on admission. -INR currently subtherapeutic -Warfarin held, continue to hold in light of recent bleeding. Supra-therapeutic INR, acute. Present on admission. Active. -INR 4.4 on admission, currently subtherapeutic -Warfarin held, continue to hold in light of recent bleeding. Type 2 diabetes mellitus, chronic. Present on admission. Active. - Serum glucose 236 on admission. Home treated with Metformin, non-insulin dependent. - Currently managed on subcutaneous insulin - HbA1c 6.5 Severe Protein malnutrition, POA, active - Started on trophic tube feeds. - adjusting insulin as needed Elevated troponin, likely chronic. Present on admission. Active. -Likely secondary to stress and CKD. ECG without acute ischemic changes. -Troponins mildly elevated most likely secondary to demand ischemia Urinary tract infection, acute. Present on admission. Active. -UA consistent with infection, urine culture showing Escherichia coli -Continue IV Zosyn Hypertension, chronic. Present on admission. Patient is currently hypotensive, with decreased heart rate -Held home antihypertensives: Carvedilol 3.125mg PO BID Digoxin 125mcg PO daily Furosemide 40mg PO daily Spironolactone 12.5mg PO daily History of dementia. Present on admission. Presumed stable. -Held donepezil CODE STATUS: LIMITED INTERVENTIONS. Discussed code status with family and confirmed NO CHEST COMPRESSION and short term INTUBATION only. GI Prophylaxis: IV protonix as above for probable GI bleed DVT Prophylaxis: Sub-q Heparin held on admission for supratherapeutic INR of 4.4. PRN: Acetaminophen-fever/headache/mild/moderate pain Bowel regimen, as needed. Disposition: Patient will be discharged when she is medically stable back to snf facility. I imagine this will require 1-2 more nights of in hospital stay. VTE Mechanical Devices: Intermittant Pneumatic CD Resuscitation Status: Limited Interventions (No chest compressions/no defibrillation) Attending Statement The patient was seen and examined together with Dr. Ledezma on 12/06/16 and I have added additional information to the note above. Horace Ledezma DO Dec 06, 2016 18:40 Heather Thacker DO Dec 07, 2016 14:21
--- NOTE | 2016-12-06 19:41 | NUR ---
Assumed care Assumed care of Pt at ~1215 when Pt transferred from CCU room 2016 to PCC room 2004. Pt had just completed K+ rider for a K+ of 3.3, Pt on K+/Mg2+ repletion protocol, f/u lab ordered which came back at 3.4, another K+ rider ordered and infused which completed during shift change, mamta VICKERS RN made aware. Pt NPO, blood sugar checked and 83, blood sugar prior to shift change 70 when checked and did not meet D50W PRN parameters, mamta VICKERS RN aware of blood sugars.
[2016-12-06] MEDS: Insulin GLARgine 100 Unit/mL Syringe SUBQ SCH (21:00)
[2016-12-07] VITALS (8 sets, daily range): BP systolic 121–153; BP diastolic 65–81; PULSE 52–62; RESP 15–24; O2SAT 92–98
[2016-12-07] MEDS: Amiodarone 360 mg/200 mL D5W 360 MG in IV Premix 1 EACH IV SCH ×2 (02:16→13:14)
[2016-12-07 05:06] LABS: Mean Corpuscular Hemoglobin 24.1 pg (27.0-35.0); Mean Corpuscular Volume 80.3 fL (81-100)
[2016-12-07 05:22] LABS: INR 1.31 ratio
[2016-12-07 05:39] LABS: Magnesium 2.4 mg/dL (1.6-2.6)
--- NOTE | 2016-12-07 06:03 | NUR ---
BGs/Amiodarone/K+/Mentation Pt's BG went from 69 to 45 and pt was given 50 of D50. Repeat BG after giving the D50 the pt's BG was 52 so the pt received 25 of D50. Repeat BG after giving 25 of the D50 and pt's BG was 101. 2 hours after BG of 101 pt's BG was rechecked and BG was 115 at approximately 0445 this AM. Pt continues to be strict NPO with amiodarone at .05mg/min with HR of SR/SB 50s-60s. Pt's K+ draw was 3.7. Pt continues to be unable to speak and can get agitated and combative when touched.
[2016-12-07] MEDS: Insulin LISPRO 300 Unit/3 mL Inj SUBQ SCH ×4 (08:00→21:44)
[2016-12-07] MEDS: Piperacillin-Tazo 3.375 Gm Inj 3.375 GM in Dextrose 5% Minibag Plus 50 ML IV SCH ×2 (10:41→13:11)
--- NOTE | 2016-12-07 10:59 | NUR ---
NUTRITION FOLLOW-UP: ASSESS: Pt is a 81 YO female admitted to CCU with respiratory distress noted by caregivers at [facility], requiring intubation on route to the hospital. She was successfully extubated at 1200 on 12/05, with only 150 mL enteral feeding provided. Speech Therapy was unable to advance her diet 12/06, and she remains strict NPO. Prior to intubation, pt was DNR/DNI. Palliative care is involved for goals of care. Family currently requesting reintubation if required; code status now limited interventions. Per case management rounds this morning, [facility] will be called to establish patient's baseline. Per family, she was able to walk and feed herself at [facility]; however, it is clear that she is unable to walk or feed herself currently. Dr. Thacker will determine POC today. PMHX: Dementia, Afib, DM, CKD stg 3, HTN, PE, CHF. LABS: Reviewed. Na 148, Chloride 118, CO2 15, BUN 59, Cr 2.07, Glu 122, A1c 6.5, Ca 8.1, ALT 95, Alb 3.0, Procalcitonin 0.31. MEDS: Reviewed. Insulin. GI: BM x 1 (12/05). SKIN: Patient seen for skin changes on L intergluteal fold; beefy red wound bed with slightly peeling edges on proximal margin, difficult to ascertain if this is pressure injury or skin tear. No erythema is noted over perineum, all areas are blanchable.Patient has long, sharp fingernails and two broken-off fingernail tips were found between patient's skin (at sacrum) and draw sheet. Patient claws at staff as well as self. L foot 2nd toe dorsal surface, callous removed resulting in open area, glossy pink wound bed, edges well adhered, no drainage. 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 Toes have probably rubbed inside of shoe toe box, resulting in callous. R foot noted with significant pes covus or possibly Charcot arthropathy. Patient unable to contribute any meaningful information. WT: 93.1 kg, BMI 29.0 kg/m2, admit wt: 86.8kg, IBW: 68.2kg DIET: NPO x 5 D. EST. NEEDS: RADAMES, WOUNDS: Kcals: 1735-2170kcal/day (20-25kcal/kg) Pro: 105-130g/day (1.2-1.5g/kg) Fluids: ~2000ml/day NUTRITION DIAGNOSIS: 1) Inadequate oral intake related to decreased ability to consume sufficient energy as evidenced by current NPO status, recent inability to feed herself - PERSISTS. 2) Chewing / swallowing issues related to significantly altered mental status, as evidenced by inability of Speech Therapy to advance diet. 3) Concern regarding nutritional adequacy with lack of nutritional plan in place for discharge to [facility]> 4) Increased nutrient needs related to wounds, as evidenced by progressive skin changes since admission. NUTRITION INTERVENTION: 1) Strongly recommend family meeting in timely manner to address goals of nutritional care for this patient prior to discharge; i.e., PEG tube placement vs. hospice / comfort care. The patient is not a good candidate for a PEG due to her agitation and significantly altered mental status. 2) In the event PEG tube placement desired by family, recommendation follows. Recommend initiation of Glucerna 1.5, with a goal rate of 60 mL/hr, which would provide 1980 kcal, 109 g protein, sufficient to meet approximately 100% nutrient needs. MONITOR / EVAL: NPO status, POC, wt, GI, labs, POC. Will continue to monitor per high nutrition risk guidelines
--- NOTE | 2016-12-07 11:01 | NUR ---
Mentation/Zosyn/sponges Pt unable to respond to verbal commands, explained to pt the need for vital signs, pt combative while taking vital signs, reassured pt, pt relaxed. Unable to administer Zosyn at time on EMAR, no air in bag to draw medicine from container. Notified Pharmacy. Returned bag to Pharmacy for replacement. Pt refuses sponges soaked in water, spits out water, yells and hits. Encouraged pt for comfort to have swabs. Pt still refuses. Care continues.
--- NOTE | 2016-12-07 11:54 | CONS ---
[address] [address] CONSULTATION REPORT PATIENT: MANAS CULLEN : 1935 MR#: [id number] ADMIT: 12/02/2016 JOB ID: [id number] DATE OF SERVICE: 12/07/2016 SURGICAL CONSULTATION: CHIEF COMPLAINT: This is a 81-year-old woman with cholecystitis. This consultation is requested by Dr. Heather Thacker and Dr. Horace Ledezma. HISTORY OF PRESENT ILLNESS: This is a 81-year-old woman who was admitted five days ago with symptoms of decreased consciousness. She has a history of dementia, ejection fraction of 10%-15%, and was residing in [facility]. Her admitting diagnoses included shock, respiratory failure, heart failure, anemia, chronic kidney disease, and she underwent workup including chest x-rays, brain CT, a CT of the abdomen and pelvis and abdominal ultrasound. On CT scan she was found to have findings consistent with cholecystitis including gallbladder wall thickening and pericholecystic fluid and ultrasound showed the same with a positive sonographic Senior sign. She also has extrahepatic ductal dilation on ultrasound to 10.4 mm. The patient could not be interviewed secondary to her dementia. She has been intubated on this admission, but recently was extubated. I was asked the question of whether she is a surgical candidate. PAST MEDICAL HISTORY: 1. Hypertension. 2. Dementia. 3. Atrial fibrillation anticoagulated with warfarin. 4. Pulmonary embolism in January 2012. 5. CHF with ejection fraction of 10% in 2011, 20%-25% on this admission. 6. Chronic kidney disease stage 3. 7. Type 2 diabetes. 8. Obesity. 9. History of pericardial effusion. 10. History of hypercarbic hypoxemic respiratory failure. PAST SURGICAL HISTORY: 1. Appendectomy. She has a right lower quadrant transverse incision. 2. "Hernia repair." I do not know the location of the hernia, but she does have a transverse incision just above the umbilicus, so I suspect she had an epigastric hernia repair. MEDICATIONS: Reviewed. ALLERGIES: No known drug allergies. FAMILY AND SOCIAL HISTORY: Could not be obtained secondary to the patient's dementia. REVIEW OF SYSTEMS: Could not be obtained secondary to the patient's dementia. PHYSICAL EXAMINATION: Temperature 36.7, heart rate 52, blood pressure 136/73, respiratory rate of 15, saturation 96% on room air. General: She is lying in bed and does not appear to be in discomfort, but is not responsive to questioning. Head: Normocephalic. Neck: Supple. Cardiac: Bradycardia, soft systolic murmur, regular rhythm. Respiratory: Crackles bilaterally. Abdomen: Soft, moderate tenderness with palpation of the right upper quadrant and right lower quadrant. Nontender in the left-sided quadrants. Extremities: Atraumatic. Psychiatric: Not responsive to questioning. Neurologic: Could not be examined. LABORATORIES: White blood cell count is 14, hematocrit 29.7, and platelets 122. Comprehensive metabolic panel reveals creatinine of 2.07, sodium 148, chloride 118, calcium 8.1, bilirubin 0.7, ALT of 95, and is otherwise normal. IMAGING: Abdominal ultrasound and abdominal CT scan showed findings consistent with cholecystitis as noted above in the HPI. ASSESSMENT: A 81-year-old woman with cholecystitis in the setting of severe CHF with ejection fraction ranging from 10%-25% on sequential echocardiograms. She has severe dementia and resides in [facility]. She is currently symptomatic and is station tender with a rising white count, despite antibiotics. RECOMMENDATIONS: I do not recommend surgical intervention in this patient given her significant comorbidities, with a focus on her poor cardiac function. Cholecystostomy could be considered, however, this can be problematic in patients with dementia as inadvertent discontinuation is a high risk and could result in the need for additional imaging and procedures. Notably, Palliative Care has been consulted in this patient's case, and I agree with their involvement. I discussed this case with the primary team and would agree with strong consideration for comfort measures if that were to be pursued. I will sign off at this time, but if there are additional questions that arise, or if cholecystostomy is considered in their questions regarding management, please feel free to page me. [place]
[2016-12-07] MEDS: Nystatin 100,000 Unit/Gm 15 Gm Powder TOPICAL SCH ×2 (13:10→21:33)
--- NOTE | 2016-12-07 13:24 | NUR ---
Family at bedside Family at bedside asking to speak with MD. MD notified. Care continues.
--- NOTE | 2016-12-07 14:14 | PCM.ADCARE ---
Advance Care Planning Note Plan: Date: 12/07/2016 Purpose of encounter: Goals of care Parties in attendance: Brother Jorge Luis Styles (DPOA) Nephew Pk Heckmaury (Jorge Luis's son) Dr. Thacker Diagnoses: End-stage dementia Possible bacteremia Acute hypercarbic hypoxic respiratory failure Acute on chronic decompensated heart failure Severe anemia Acute on chronic kidney disease stage III Type II diabetes Severe protein malnutrition Urinary tract infection Hypertension Decisional capacity: Poor Plan: The patient's family is aware of the patient's current diagnoses and is still having some difficulty coming to radiography technician with the situation as this is a new decline in her mentation and her activity. According to the family the patient was able to feed herself however at one time she was unable to feed herself but recently she had restarted feeding herself. It is unclear if the patient has actually been finishing her meals she did have some signs of dehydration upon admission. At this time the family still wants full care for her including intubation but not chest compression. At this time the patient will remain resuscitation with limited interventions. The patient is a DO NOT RESUSCITATE but they do want intubation if necessary. The family at this time would like to sustain the patient for a few more days on IV fluids and then if she does not get any better they will readdress whether the patient should be DNR/DNI. At this time the patient situation does look very grim as she is no longer communicating, does not feed herself, does not even close her mouth. The patient does have cholecystitis however at this time surgery has done an evaluation recommend surgery at this time as it could potentially be more detrimental for the patient. CODE STATUS: No chest compressions but yes to intubation if necessary. Time spent with advanced care planning: Greater than 16 minutes Heather Thacker DO Dec 07, 2016 14:14
--- NOTE | 2016-12-07 14:58 | NUR ---
PT NOTE-- Unresponsive and not appropriate for PT at this time. Spoke with MD and will reorder if appropriate.
[2016-12-07] MEDS ORDERED: Dextrose 10% 250 ML IV PRN (17:40)
--- NOTE | 2016-12-07 17:42 | PCM.PNMED ---
Subjective Date of Service Dec 07, 2016 Subjective Subjective: Patient remains minimally responsive Events Overnight: No acute events overnight. ROS: Due to severe dementia, a review of systems was unable to be obtained. Exam Vital Signs Vital Sign - Last Date Time Temp Pulse Resp B/P Pulse Ox O2 Delivery O2 Flow Rate FiO2 12/07/16 16:51 36.5 59 16 133/73 97 Room Air 12/05/16 08:30 30 Intake and Output 12/06/16 12/06/16 12/07/16 Cumulative From/Thru 15:00 23:00 07:00 12/02/16 19:55 - 12/07/16 06:27 Intake Total 1624 ml 23655 ml Output Total 800 ml 400 ml 5060 ml Balance 824 ml -400 ml 6072 ml Intake Oral 0 ml 0 ml IV Total 1624 ml 91214 ml Tube Feeding 175 ml Packed Cells 300 ml Tube Irrigant 281 ml Output Urine Total 800 ml 400 ml 5060 ml Gastric Drainage Total 0 ml Other 0 ml # Bowel Movements 3 Exam General: No acute distress, unable to follow commands. Well-developed, well- nourished HEENT: Normocephalic, atraumatic. External ears without defect. Pupils equal, round, and reactive to light and accommodation. Anicteric sclerae, moist conjunctivae. Unable to focus on subject. Cardiovascular: Regular rate and rhythm with systolic murmur, no rubs, or gallops appreciated Pulmonary: Coarse breath sounds diffusely, no wheezes, or rhonchi. Normal respiratory effort with no use of accessory muscles. Abdomen: Bowel tones present. Soft, nontender, nondistended. Extremities: No cyanosis, edema, + hammer toes and significantly elevated arches Skin: Normal temperature, turgor, and texture; no rash, moderately sized sacral ulcer, no subcutaneous nodules appreciated. Neurological: Unable to assess as patient is not following commands at this time. Decreased muscle strength, tone, and bulk. Psychiatric: Unable to assess IVs and Medications IV Fluids 1250 mL normal saline delivered with IV medications. Medications Reviewed: Medications were reviewed in detail Medications High-risk medications include: Amiodarone drip Lab and Diagnostics Result Diagram: 12/07/16 0445 12/07/16 0445 Microbiology 12/02/16 Blood Culture- pending 12/02/16 Urine Culture- pending 12/02/16 MRSA screen- pending X-Rays, CTs and MRIs (12/02/16) X-RAY CHEST ONE VIEW, PORTABLE INDICATIONS: 81 year-old female with dyspnea and bradycardia. IMPRESSION: Endotracheal tube is in expected position. Decreased lung volumes. Dictated and approved by: Rl Mccollum M.D. on 12/02/2016 at 16:42 (12/02/16) CT BRAIN WITHOUT CONTRAST INDICATIONS: altered LOC, COMA IMPRESSION: Moderate microvascular atherosclerotic change in the deep white matter of each hemisphere but no acute disease is seen. No microsoft exchange architect time. Dictated and approved by: Terry Lemus M.D. on 12/02/2016 at 18:30 X-RAY CHEST ONE VIEW, PORTABLE IMPRESSION: Gastric tube in normal position. Dictated by: Terry Lemus M.D. on 12/02/2016 at 18:37 Approved by: Terry Lemus M.D. on 12/02/2016 at 18:37 (12/02/16) X-RAY CHEST ONE VIEW, PORTABLE INDICATIONS: line placement IMPRESSION: Bilateral pneumonia right greater than left, lines and tubes appear in normal position considering patient rotation leftward. Dictated and approved by: Terry Lemus M.D. on 12/02/2016 at 21:25 Cardiac Echo Impressions Echocardiogram The left ventricle is moderately dilated. Left ventricular wall thickness is mildly increased. Left ventricular systolic function is severely reduced. The ejection fraction is estimated to be 20-25%. LVEF has not significantly changed since prior study. Assessment of diastolic parameters suggests a pseudonormalization pattern, consistent with elevated filling pressures. The right ventricle is moderately dilated. There is no mass or thrombus in the right ventricle. Right ventricular systolic function is moderately reduced and has mildly improved since prior study. Right ventricular systolic pressure is estimated to be 48 mmHg plus the clinically estimated CVP which cannot be estimated on this exam. The left atrium is severely dilated. The right atrium is moderately dilated. There is moderate mitral regurgitation. MR has decreased. There is no other significant valvular heart disease. The aortic root is normal size. Assessment & Plan 81 year-old lady with a history of dementia, Afib chronically anticoagulated on warfarin, diabetes type II, chronic kidney disease type III, hypertension, history of pulmonary embolism, COPD, systolic CHF with previous EF of 10-15%, comes from [facility], admitted due to altered level of consciousness. Shock. Present on admission. Resolved -Uncertain etiology. Hypovolemic, cardiogenic versus septic shock Bacteremia, present on admission, active -Blood cultures show 1 positive for Staph epidermadis, The other blood culture shows no growth. -Nares and sputum positive for MRSA, patient started on linezolid 12/07 -Continue IV Zosyn for broad coverage Acute hypercarbic hypoxic respiratory failure. Present on admission. Resolved -Patient with previous admission 5years ago for acute respiratory failure. Attributed at that time in part to obesity hypoventilation syndrome and untreated sleep apnea. -Patient extubated on 12/05, -Patient downgraded to [facility] 12/06 Acute on chronic decompensated heart failure. Present on admission. Active. - Echocardiogram in 2011 showed an EF of 10-15%. -12/03 echocardiogram shows EF of 20-25% other findings as above. -Continue amiodarone due to infrequent runs of V tach -Half normal saline changed to D5 half-normal saline 12/07 -Held home carvedilol, losartan, digoxin, furosemide and spironolactone until swallow eval can be completed Severe anemia, likely acute on chronic. Present on admission. Active. -Uncertain etiology. Possibly chronic, possibly due to acute blood loss secondary to GI bleed in setting of CKD stage 3. -No obvious source for bleeding -Hb 5.8 at presentation, transfused 2units pRBCs on 12/03 -Most recent Hgb 8.9, continue to trend -CT abd/pelvis shows no obvious source of bleeding -Transfusion threshold Hb < 7.0 Acute on chronic kidney disease stage 3. Present on admission. Active. -Likely secondary to diabetes and longstanding hypertension. Creatinine at presentation 3.71 with unknown baseline. -Shows continued improvement -Consulted nephrology Hyperkalemia, acute. Present on admission. Resolved -Likely multifactorial, secondary to acute on chronic renal failure, lactic acidosis and medications (losartan, spironolactone). -Required potassium IV on 12/06 -Continue to monitor -Nephrology consulted and has signed off Anion gap metabolic acidosis. Present on admission. Improving -Likely secondary to lactic acidosis and acute on chronic renal failure. Atrial fibrillation anticoagulated on Warfarin, chronic. Present on admission. Active. -Patient chronically anticoagulated on Warfarin with supratherapeutic INR on admission. -INR currently subtherapeutic -Warfarin held, continue to hold in light of recent bleeding. Supra-therapeutic INR, acute. Present on admission. Active. -INR 4.4 on admission, currently subtherapeutic -Warfarin held, continue to hold in light of recent bleeding. Type 2 diabetes mellitus, chronic. Present on admission. Active. - Serum glucose 236 on admission. Home treated with Metformin, non-insulin dependent. - Currently managed on subcutaneous insulin - HbA1c 6.5 Severe Protein malnutrition, POA, active - Added D5 to half-normal saline for nutrition. - adjusting insulin as needed - Discussing with the family plans to place a PEG tube as this will likely be required for nutritional support. Elevated troponin, likely chronic. Present on admission. Active. -Likely secondary to stress and CKD. ECG without acute ischemic changes. -Troponins mildly elevated most likely secondary to demand ischemia Urinary tract infection, acute. Present on admission. Active. -UA consistent with infection, urine culture showing Escherichia coli -Continue IV Zosyn Hypertension, chronic. Present on admission. Patient is currently hypotensive, with decreased heart rate -Held home antihypertensives: Carvedilol 3.125mg PO BID Digoxin 125mcg PO daily Furosemide 40mg PO daily Spironolactone 12.5mg PO daily History of dementia. Present on admission. Presumed stable. -Held donepezil CODE STATUS: LIMITED INTERVENTIONS. Discussed code status with family and confirmed NO CHEST COMPRESSION and short term INTUBATION only. GI Prophylaxis: IV protonix as above for probable GI bleed DVT Prophylaxis: Sub-q Heparin held on admission for supratherapeutic INR of 4.4. PRN: Acetaminophen-fever/headache/mild/moderate pain Bowel regimen, as needed. Of note: Family is aware of the patient's condition but are slow to understand the gravity of her current state. We have discussed with the family goals for quality of life and they continued to state that they would like to watch for another couple days to see how she improves. Family states that she is not currently at her baseline level of dementia. Disposition: Patient will be discharged when she is medically stable back to [facility] facility. However at this time the patient to seem like she is declining and this may be a new baseline for her or this may be time to consider DNR/DNI and comfort care with potential transfer to hospice. We will continue to have discussions with the family and continued him treat the patient medically. VTE Mechanical Devices: Intermittant Pneumatic CD Resuscitation Status: Limited Interventions (No chest compressions/no defibrillation) Attending Statement The patient was seen and examined together with Dr. Ledezma on 12/07/16 and I have added additional information to the note above. Horace Ledezma DO Dec 07, 2016 17:42 Heather Thacker DO Dec 08, 2016 13:30
[2016-12-07] MEDS: Dextrose 5% 0.45% NaCl 1,000 ML IV SCH (18:12)
[2016-12-07] MEDS: Linezolid Inj 600 MG in IV Premix 1 EACH IV SCH (21:35)
[2016-12-07] MEDS: Insulin GLARgine 100 Unit/mL Syringe SUBQ SCH (21:44)
[2016-12-08] VITALS (8 sets, daily range): BP systolic 119–146; BP diastolic 57–72; PULSE 61–70; RESP 22–26; O2SAT 88–98
[2016-12-08] MEDS: Amiodarone 360 mg/200 mL D5W 360 MG in IV Premix 1 EACH IV SCH ×2 (00:15→12:55)
[2016-12-08] MEDS: Piperacillin-Tazo 3.375 Gm Inj 3.375 GM in Dextrose 5% Minibag Plus 50 ML IV SCH ×2 (00:15→15:25)
[2016-12-08] MEDS: Dextrose 5% 0.45% NaCl 1,000 ML IV SCH ×3 (03:42→23:30)
[2016-12-08 05:14] LABS: Mean Corpuscular Hemoglobin 23.8 pg (27.0-35.0); Mean Corpuscular Volume 79.5 fL (81-100)
[2016-12-08 05:30] LABS: INR 1.5 ratio
--- NOTE | 2016-12-08 06:34 | NUR ---
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 Pt continues to respond to light touch but does not follow commands.
--- NOTE | 2016-12-08 07:49 | NUR ---
Activity Pt no longer moving extremities on own. When turning pt she no longer is combative and does not help with the turns either.
[2016-12-08] MEDS: Linezolid Inj 600 MG in IV Premix 1 EACH IV SCH (11:23)
[2016-12-08] MEDS: Nystatin 100,000 Unit/Gm 15 Gm Powder TOPICAL SCH ×2 (11:23→21:41)
[2016-12-08] MEDS: Insulin LISPRO 300 Unit/3 mL Inj SUBQ SCH ×4 (11:39→21:45)
--- NOTE | 2016-12-08 13:15 | NUR ---
Swab/Sunction Pt mouth open all shift and dry. Swabbing pt mouth Q 30 minutes. HOB 30 degrees. Assessed need for suction, suctioned pt. Asked RT for additional help with suction. Care continues.
--- NOTE | 2016-12-08 13:23 | NUR ---
Spoke with NSG regarding sxn. Pt. assessed and orally sxn'd for large thick creamy secretions. Stimulated strong cough. Pt able to clear secretions with oral sxn. HOB increased to > 30 Degrees. Pt. resting comfortably.
--- NOTE | 2016-12-08 13:33 | PCM.PNMED ---
Subjective Date of Service Dec 08, 2016 Subjective Patient with likely some degree of dementia at baseline presenting following likely aspiration, was initially intubated for respiratory failure, extubated ; has been minimally responsive after extubation with no meaningful following of commands and frequent hostile agitation. Overnight the patient continued to deteriorate from a cognitive and functional perspective Today the patient is quite somnolent and altered, will only transiently open her eyes to noxious stimuli and has not been hostile or agitated which is a decline from her baseline Comprehensive ROS negative except as listed above. Exam Vital Signs Vital Sign - Last Date Time Temp Pulse Resp B/P Pulse Ox O2 Delivery O2 Flow Rate FiO2 12/08/16 12:58 36.4 69 26 136/68 96 Room Air 12/05/16 08:30 30 Intake and Output 12/07/16 12/07/16 12/08/16 Cumulative From/Thru 15:00 23:00 07:00 12/02/16 19:55 - 12/08/16 05:35 Intake Total 2703 ml 0 ml 46832 ml Output Total 300 ml 400 ml 5760 ml Balance 2403 ml -400 ml 8075 ml Intake Oral 0 ml 0 ml 0 ml IV Total 2703 ml 30240 ml Tube Feeding 175 ml Packed Cells 300 ml Tube Irrigant 281 ml Output Urine Total 300 ml 400 ml 5760 ml Gastric Drainage Total 0 ml Other 0 ml # Bowel Movements 0 3 Exam Gen: Patient not alter or oriented, somnolent elderly chronically ill appearing in non responsive open mouth repose Neck: Supple, no JVD, R IJ line in place HEENT: PERRLA, very dry mucous membranes, open mouthed snoring CV: RRR, no murmurs rubs or gallops Resp: Lungs CTA BL, no wheezing mild rales and rhonchi Abd: Obese, no rebound guarding masses or tenderness Neuro: CN cannot be accurately assessed due to somnolence, no focal neurologic deficit Skin: Diffuse ecchymosis and skin breakdown IVs and Medications Medications Reviewed: Medications were reviewed in detail Lab and Diagnostics Item Value Date Time Red Blood Count 4.00 mil/mm3 12/08/16 0400 Mean Corpuscular Volume 79.5 fL L 12/08/16 0400 Mean Corpuscular Hemoglobin 23.8 pg L 12/08/16 0400 Mean Corpuscular Hemoglobin Concent 29.9 % L 12/08/16 0400 Red Cell Distribution Width 17.4 % H 12/08/16 0400 Estimat Glomerular Filtration Rate 30 mL/min 12/08/16 0400 Calcium Level 8.2 mg/dL L 12/08/16 0400 Total Bilirubin 0.6 mg/dL 12/08/16 0400 Aspartate Amino Transf (AST/SGOT) 33 U/L 12/08/16 0400 Alanine Aminotransferase (ALT/SGPT) 82 U/L H 12/08/16 0400 Alkaline Phosphatase 83 U/L 12/08/16 0400 Albumin 3.0 g/dL L 12/08/16 0400 Total Protein 5.8 g/dL L 12/08/16 0400 Result Diagram: 12/08/16 0400 12/08/16 0400 Microbiology 12/02/16 Blood Culture- pending 12/02/16 Urine Culture- pending 12/02/16 MRSA screen- pending X-Rays, CTs and MRIs (12/02/16) X-RAY CHEST ONE VIEW, PORTABLE INDICATIONS: 81 year-old female with dyspnea and bradycardia. IMPRESSION: Endotracheal tube is in expected position. Decreased lung volumes. Dictated and approved by: Rl Mccollum M.D. on 12/02/2016 at 16:42 (12/02/16) CT BRAIN WITHOUT CONTRAST INDICATIONS: altered LOC, COMA IMPRESSION: Moderate microvascular atherosclerotic change in the deep white matter of each hemisphere but no acute disease is seen. No change management coordinator time. Dictated and approved by: Terry Lemus M.D. on 12/02/2016 at 18:30 X-RAY CHEST ONE VIEW, PORTABLE IMPRESSION: Gastric tube in normal position. Dictated by: Terry Lemus M.D. on 12/02/2016 at 18:37 Approved by: Terry Lemus M.D. on 12/02/2016 at 18:37 (12/02/16) X-RAY CHEST ONE VIEW, PORTABLE INDICATIONS: line placement IMPRESSION: Bilateral pneumonia right greater than left, lines and tubes appear in normal position considering patient rotation leftward. Dictated and approved by: Terry Lemus M.D. on 12/02/2016 at 21:25 Cardiac Echo Impressions Echocardiogram The left ventricle is moderately dilated. Left ventricular wall thickness is mildly increased. Left ventricular systolic function is severely reduced. The ejection fraction is estimated to be 20-25%. LVEF has not significantly changed since prior study. Assessment of diastolic parameters suggests a pseudonormalization pattern, consistent with elevated filling pressures. The right ventricle is moderately dilated. There is no mass or thrombus in the right ventricle. Right ventricular systolic function is moderately reduced and has mildly improved since prior study. Right ventricular systolic pressure is estimated to be 48 mmHg plus the clinically estimated CVP which cannot be estimated on this exam. The left atrium is severely dilated. The right atrium is moderately dilated. There is moderate mitral regurgitation. MR has decreased. There is no other significant valvular heart disease. The aortic root is normal size. Assessment & Plan 81 year-old lady with a history of dementia, Afib chronically anticoagulated on warfarin, diabetes type II, chronic kidney disease type III, hypertension, history of pulmonary embolism, COPD, systolic CHF with previous EF of 10-15%, comes from [facility], admitted due to altered level of consciousness. Shock. Present on admission. Resolved -Uncertain etiology. Hypovolemic, cardiogenic versus septic shock -appears to be likely secondary to aspiration event Bacteremia, present on admission, active -Blood cultures show 1 positive for Staph epidermadis, The other blood culture shows no growth. -Nares and sputum positive for MRSA, patient started on linezolid 12/07 -Continue IV Zosyn for broad coverage Acute hypercarbic hypoxic respiratory failure. Present on admission. Resolved -Patient with previous admission 5years ago for acute respiratory failure. Attributed at that time in part to obesity hypoventilation syndrome and untreated sleep apnea. -Patient extubated on 12/05, -Patient downgraded to [facility] 12/06 Acute on chronic decompensated heart failure. Present on admission. Active. - Echocardiogram in 2011 showed an EF of 10-15%. -12/03 echocardiogram shows EF of 20-25% other findings as above. -Continue amiodarone due to infrequent runs of V tach, currently attempting to wean the patient off currently running at 0.04mg/kg/min -Half normal saline changed to D5 half-normal saline 12/07 -Held home carvedilol, losartan, digoxin, furosemide and spironolactone until swallow eval can be completed Severe anemia, likely acute on chronic. Present on admission. Active. -Uncertain etiology. Possibly chronic, possibly due to acute blood loss secondary to GI bleed in setting of CKD stage 3. -No obvious source for bleeding -Hb 5.8 at presentation, transfused 2units pRBCs on 12/03 -Most recent Hgb 8.9, continue to trend -CT abd/pelvis shows no obvious source of bleeding -Transfusion threshold Hb < 7.0 Acute on chronic kidney disease stage 3. Present on admission. Active. -Likely secondary to diabetes and longstanding hypertension. Creatinine at presentation 3.71 with unknown baseline. -Shows continued improvement -Consulted nephrology Hyperkalemia, acute. Present on admission. Resolved -Likely multifactorial, secondary to acute on chronic renal failure, lactic acidosis and medications (losartan, spironolactone). -Required potassium IV on 12/06 -Continue to monitor -Nephrology consulted and has signed off Anion gap metabolic acidosis. Present on admission. Improving -Likely secondary to lactic acidosis and acute on chronic renal failure. Atrial fibrillation anticoagulated on Warfarin, chronic. Present on admission. Active. -Patient chronically anticoagulated on Warfarin with supratherapeutic INR on admission. -INR currently subtherapeutic -Warfarin held, continue to hold in light of recent bleeding. - Heart rate currently controlled on Amiodarone drip will attempt to wean today Supra-therapeutic INR, acute. Present on admission. Active. -INR 4.4 on admission, currently subtherapeutic -Warfarin held, continue to hold in light of recent bleeding. Type 2 diabetes mellitus, chronic. Present on admission. Active. - Serum glucose 236 on admission. Home treated with Metformin, non-insulin dependent. - Currently managed on subcutaneous insulin - HbA1c 6.5 Severe Protein malnutrition, POA, active - Added D5 to half-normal saline for nutrition. - adjusting insulin as needed - Discussing with the family plans to place a PEG tube as this will likely be required for nutritional support. - Patient's Brother and Nephew would like to support patients with IV fluids and nutrition at this time to see if she will improve. If patient does not improve then they are more apt to change her to comfort care Elevated troponin, likely chronic. Present on admission. Active. -Likely secondary to stress and CKD. ECG without acute ischemic changes. -Troponins mildly elevated most likely secondary to demand ischemia Urinary tract infection, acute. Present on admission. Active. -UA consistent with infection, urine culture showing Escherichia coli -Continue IV Zosyn Hypertension, chronic. Present on admission. Patient is currently hypotensive, with decreased heart rate -Held home antihypertensives: Carvedilol 3.125mg PO BID Digoxin 125mcg PO daily Furosemide 40mg PO daily Spironolactone 12.5mg PO daily History of dementia. Present on admission. Presumed stable. -Held donepezil CODE STATUS: LIMITED INTERVENTIONS. Discussed code status with family and confirmed NO CHEST COMPRESSION and short term INTUBATION only. GI Prophylaxis: IV protonix as above for probable GI bleed DVT Prophylaxis: Sub-q Heparin held on admission for supratherapeutic INR of 4.4. Disposition: Patient will be discharged when she is medically stable back to [facility] facility. At this time the patient appears to be declining and moving towards more of a hospice and comfort care VTE Mechanical Devices: Intermittant Pneumatic CD Resuscitation Status: Limited Interventions (No chest compressions/no defibrillation) Attending Statement The patient was seen and examined together with Dr. Tsai on 12/08/16 and I have added additional information to the note above. Slick Tsai DO Dec 08, 2016 13:33 Heather Thacker DO Dec 08, 2016 16:27
[2016-12-08] MEDS ORDERED: Glycopyrrolate 0.2 MG/ML 1mL Inj IVPUSH PRN (17:20)
[2016-12-08] MEDS ORDERED: Morphine 100 mg/100 mL NS 100 MG in IV Premix 1 EACH IV SCH (17:20)
[2016-12-08] MEDS ORDERED: Haloperidol 5 mg/mL Inj IVPUSH PRN (17:20)
--- NOTE | 2016-12-08 17:51 | PCM.ADCARE ---
Advance Care Planning Note Plan: Date: 12/08/2016 Purpose of encounter: Goals of care Parties in attendance: Brother Jorge Luis Styles (DPOA) Nephew Pk Heckmaury (Jorge Luis's son) Dr. Kirstie Tsai Diagnoses: End-stage dementia Bacteremia MRSA Acute hypercarbic hypoxic respiratory failure Acute on chronic decompensated heart failure Severe anemia Acute on chronic kidney disease stage III Type II diabetes Severe protein malnutrition Urinary tract infection Hypertension Decisional capacity: Poor Plan: The patient has significantly declined from yesterday to today and the family understands that at this time she is at end-of-life. Both the nephew and brother are in agreement that she is significantly changed from yesterday and that this looks like end-of-life and would like to make the patient comfortable. The patient's family is aware of the current diagnosis and would like the patient to be DO NOT RESUSCITATE/DO NOT INTUBATE. The patient's family understands that no chest compressions will be done and the patient will not be intubated. The patient's family understands that no form of CPR will be attempted and are in agreement with this. The patient has now been made comfort care and all life-saving measures such as antibiotics and pressors and IV fluids will be withdrawn at this time as this is currently futile. The family does not want patient to be returned to [facility] because they have not been happy with her care however she may pass within the next day or 2. CODE STATUS: DO NOT RESUSCITATE/DO NOT INTUBATE Time spent with advanced care planning: Greater than 16 minutes Heather Thacker DO Dec 08, 2016 17:51
[2016-12-08] MEDS: Insulin GLARgine 100 Unit/mL Syringe SUBQ SCH (21:00)
--- NOTE | 2016-12-08 22:12 | NUR ---
Transfer from [facility] Pt. transferred to [facility] for comfort care. VSS, RA, Morphine drip at 1 ml/Hr and N/S running at 10 mL/Hr. No telemetry, NPO, and on contact precautions for MRSA. No new orders.
[2016-12-09] VITALS (7 sets, daily range): BP systolic 102; BP diastolic 47; PULSE 0–105; RESP 0–22; O2SAT 84–89
[2016-12-09] MEDS ORDERED: Piperacillin-Tazo 3.375 Gm Inj 3.375 GM in Dextrose 5% Minibag Plus 50 ML IV SCH (06:00)
[2016-12-09] MEDS: Insulin LISPRO 300 Unit/3 mL Inj SUBQ SCH (07:45)
--- NOTE | 2016-12-09 08:27 | PCM.PALLBR ---
Palliative Care Recommendation 81-year-old female with advanced dementia (FAST 7-C) severe CHF with EF 10-15% , chronic full anticoagulation secondary to atrial fibrillation and PE, chronic renal failure, etc. admitted with altered level of consciousness, respiratory failure, probable sepsis, hypotension, severe anemia, renal failure, etc. Successfully extubated on 12/05, but at baseline nonverbal and severely cognitively impaired. Ongoing progressive decline over 12/06- and made comfort care on 12/08 with consent of family. Palliative medicine originally consulted to assist family with determination of goals of care. Summary of palliative recommendations: -Symptom management (Pain/other)- continued management per her medical/critical care teams. Agree with morphine infusion at 1mg/hr. 1. Terminal secretions: I am adding scopolamine patch to be changed q 3 days. -DPOA/Advanced Directives/POLST- 1. Earlier this hospitalization, Jorge Luis signed a POLST stating: DNR/no CPR/ no defibrillation with FULL interventions otherwise. 2. Pt significantly declined from 12/07 to 12/08 and the family realized that she is now at end-of-life. Both the nephew and brother are in agreement that she is significantly changed from 12/07 and that this looks like end-of-life and would like to make the patient comfortable. The patient's family is aware of the current diagnosis and would like the patient to be DO NOT RESUSCITATE/DO NOT INTUBATE. The patient's family understands that no chest compressions will be done and the patient will not be intubated. The patient's family understands that no form of CPR will be attempted and are in agreement with this. 3. Family members who met with Dr. Thacker 12/08 for above code discussion: Brother Jorge Luis Styles (DPOA) Nephew Pk Styles (Jorge Luis's son) 4. On 12/08, the patient was made comfort care and all life-saving measures such as antibiotics and pressors and IV fluids were withdrawn. The family does not want patient to be returned to life [facility] because they have not been happy with her care however she may pass within the next day or two. Prognosis: based on today's exam, I expect she has 1-2 days to live. Problems: End of Life Preferences DNR (No CPR/no defibrillation) but otherwise, FULL treatment, including re- intubation, if necessary. (12/04) Goals of Care Patient's family hopes she will have a peaceful in a few days. Disposition Expected in hospital this admission. Resuscitation Status Resuscitation Status: DNR/DNI:Do Not Resuscitate/Intubate (No chest compressions/no defibrillation) POLST Updates/Changes Previous POLST?: Yes POLST Last Review Date: Dec 03, 2016 POLST Discussed with: Health Care Agent (DPOAHC) POLST Review Outcome: Form Voided . Advanced Care Planning Address: Code status change, Comfort care Total time 25 minutes; >50% face to face with patient and/or family, providing counselling regarding plans and recommendations, and in care coordination with his/her medical teams. Palliative Brief Note Date of Service Dec 09, 2016 . Notes from the weekend and JUN reviewed. Pt declined in last 3 days and has now been converted to comfort care after discussion with family. She is on a low dose continuous morphine gtt. She is not capacitated to make decisions about her healthcare based on her profound dementia. On exam, she is unconscious, mouth breathing with nasal cannula prongs lying across her mouth. No brow furrowing or grimacing. Skin is dry with paleness on face and chest and mottling from mid thighs down to feet. Lungs with coarse sounds, heartrate is regular with no skipped beats. There are no signs or symptoms of discomfort. Danielle Kuhn MD Dec 09, 2016 08:27
[2016-12-09] MEDS: Nystatin 100,000 Unit/Gm 15 Gm Powder TOPICAL SCH (08:45)
--- NOTE | 2016-12-09 10:30 | NUR ---
Patient condition Patient turned by primary RN and Kolby at 1010. Upon entering the room at 1030, patient no longer breathing or has heartrate. Kolby, charger tester, notified as well as charhouse worker.
--- NOTE | 2016-12-09 10:48 | NUR ---
Social Work-discharge: Data:SW updated by RN during rounds that pt has been on comfort care and has now . No other SW needs identified. Plan:Pt has passed her at [facility]. No other SW needs identified. SOLE Gordon Addendum: 12/09/16 at 1151 by [facility] also updated on this information. SOLE Gordon
--- NOTE | 2016-12-09 11:47 | PCM.DC.MEX ---
Discharge Summary Date of Service Dec 09, 2016 Dates of Hospitalization Date of Hospital Admission Dec 02, 2016 at 18:19 Date of Expiration: Dec 09, 2016 Time of Expiration: 10:59 Providers: Admitting Physician: Serena Benz DO Primary Care Physician: Stefan Avelar DO Attending Physician: Armin Mcdermott Diagnosis at Time of Acute respiratory failure Additional Diagnosis Acute on chronic decompensated heart failure Consultations General Surgery: Dr. Chau Pulmonology: Dr. Oro Nephrology: Dr. Gamez Palliative: Dr. Morgan Procedures XRay, CTs & MRIs (12/02/16) X-RAY CHEST ONE VIEW, PORTABLE INDICATIONS: 81 year-old female with dyspnea and bradycardia. IMPRESSION: Endotracheal tube is in expected position. Decreased lung volumes. Dictated and approved by: Rl Mccollum M.D. on 12/02/2016 at 16:42 (12/02/16) CT BRAIN WITHOUT CONTRAST INDICATIONS: altered LOC, COMA IMPRESSION: Moderate microvascular atherosclerotic change in the deep white matter of each hemisphere but no acute disease is seen. No roll changer time. Dictated and approved by: Terry Lemus M.D. on 12/02/2016 at 18:30 X-RAY CHEST ONE VIEW, PORTABLE IMPRESSION: Gastric tube in normal position. Dictated by: Terry Lemus M.D. on 12/02/2016 at 18:37 Approved by: Terry Lemus M.D. on 12/02/2016 at 18:37 (12/02/16) X-RAY CHEST ONE VIEW, PORTABLE INDICATIONS: line placement IMPRESSION: Bilateral pneumonia right greater than left, lines and tubes appear in normal position considering patient rotation leftward. Dictated and approved by: Terry Lemus M.D. on 12/02/2016 at 21:25 Cardiac Echo Impression Echocardiogram The left ventricle is moderately dilated. Left ventricular wall thickness is mildly increased. Left ventricular systolic function is severely reduced. The ejection fraction is estimated to be 20-25%. LVEF has not significantly changed since prior study. Assessment of diastolic parameters suggests a pseudonormalization pattern, consistent with elevated filling pressures. The right ventricle is moderately dilated. There is no mass or thrombus in the right ventricle. Right ventricular systolic function is moderately reduced and has mildly improved since prior study. Right ventricular systolic pressure is estimated to be 48 mmHg plus the clinically estimated CVP which cannot be estimated on this exam. The left atrium is severely dilated. The right atrium is moderately dilated. There is moderate mitral regurgitation. MR has decreased. There is no other significant valvular heart disease. The aortic root is normal size. Brief History Per admission H&P: Reina Styles is a 81 year old lady with a history of dementia, Afib chronically anticoagulated on warfarin, DM type 2, CKD3, HTN, pulmonary embolism , and systolic heart failure with an EF of 10-15% five years ago per our records who presented to the ED from [facility] because she was becoming unarousable. due to decreased level of consciousness onset about 2 hours prior to arrival. 2 hours ago, staff noticed that the patient had a decreased LOC where she would open her eyes and look around but not respond appropriately. Shortly prior to arrival, she was rechecked by staff and found to have a GCS of 3 with agonal respirations. Upon arrival of EMS, she remained GCS of 3, with agonal respirations, and HR of 30 bpm. She was given 0.5 mg Atropine which raised and has sustained her HR in the mid 60s. She was intubated on route with 20 mg Etomidate and 100 mg succinylcholine. She did not resist the attempts to intubate or make any purposeful movements prior to sedatives being given but EMS decided to administer them to ensure sedation afterwards. She never received CPR. Of note, her code status was initially DNR and DNI but at some point that was crossed out and it was decided that she should be changed to FULL CODE. Per Palliative care note: There was considerable confusion at time of admission about her advanced directive status. A POLST from her SNF is reviewed and both CPR and DNR boxes are checked, as is the box for limited interventions. This is an old document from 2013 signed by a PCP who is no longer practicing. Per my conversation with her SNF, a family/team conference was held several months ago at which time her family members indicated that if she developed significant illness " let her go" but at that time family members refused to sign a new documentation confirming those wishes. Pt was transferred to CCU and managed on the ventilator until breathing status improved and the pt was extubated at that time. She was maintained on antibiotics for possible UTI, pneumonia, and bacteria. Pt was also found to have a progressive cholecystitis for which general surgery was consulted, however, stated that she is not a surgical candidate at this time. Pt continued to decline and was diagnosed with end-stage dementia and did not seem to be responding to any of the antibiotic therapy for her bacteremia secondary to cholecystitis. As the patient was steadily declining a family meeting was withheld in order to obtain goals of care and with consent from family, comfort care was initiated at that time. Hospital Course 81 year-old lady with a history of dementia, Afib chronically anticoagulated on warfarin, diabetes type II, chronic kidney disease type III, hypertension, history of pulmonary embolism, COPD, systolic CHF with previous EF of 10-15%, comes from [facility], admitted due to altered level of consciousness. Shock. Present on admission. Active. -Uncertain etiology. Hypovolemic, cardiogenic versus septic shock Bacteremia, present on admission, active -Blood cultures show 1 positive for Staph epidermadis, The other blood culture shows no growth. -Interventions discontinued due to comfort care status. Acute hypercarbic hypoxic respiratory failure. Present on admission. Active. -Patient with previous admission 5years ago for acute respiratory failure. Attributed at that time in part to obesity hypoventilation syndrome and untreated sleep apnea. -Trial of pressure support went well on 12/04 pt extubated 12/05 Acute on chronic decompensated heart failure. Present on admission. Active. - Echocardiogram in 2011 showed an EF of 10-15%. -12/03 echocardiogram shows EF of 20-25% other findings as above. -12/04 had a 15 beat run of VTach and was placed on amiodarone gtt. -Held home carvedilol, losartan, digoxin, furosemide and spironolactone Severe anemia, likely acute on chronic. Present on admission. Active. -Uncertain etiology. Possibly chronic, possibly due to acute blood loss secondary to GI bleed in setting of CKD stage 3. Patient unconscious at presentation and unable to provide additional history. -No obvious source for bleeding on exam. -Hb 5.8 at presentation, transfused 2units pRBCs on 12/03 -CT abd/pelvis shows no obvious source of bleeding -Interventions discontinued due to comfort care status. Acute on chronic kidney disease stage 3. Present on admission. Active. -Likely secondary to diabetes and longstanding hypertension. Creatinine at presentation 3.71 with unknown baseline. -Shows continued improvement Hyperkalemia, acute. Present on admission. Resolved -Likely multifactorial, secondary to acute on chronic renal failure, lactic acidosis and medications (losartan, spironolactone). -Potassium currently within normal limits. Anion gap metabolic acidosis. Present on admission. Improving -Likely secondary to lactic acidosis and acute on chronic renal failure. Atrial fibrillation anticoagulated on Warfarin, chronic. Present on admission. Active. -Patient chronically anticoagulated on Warfarin with supratherapeutic INR on admission. -INR currently subtherapeutic -Warfarin held, continue to hold in light of recent bleeding. Supra-therapeutic INR, acute. Present on admission. Active. -INR 4.4 on admission, currently subtherapeutic -Warfarin held, continue to hold in light of recent bleeding. Type 2 diabetes mellitus, chronic. Present on admission. Active. - Serum glucose 236 on admission. Home treated with Metformin, non-insulin dependent. - Insulin drip discontinued, bridged to subcutaneous insulin on 12/05 - HbA1c 6.5 Severe Protein malnutrition, POA, active -Interventions discontinued due to comfort care status. Elevated troponin, likely chronic. Present on admission. Active. -Likely secondary to stress and CKD. ECG without acute ischemic changes. -Troponin undulating since admission Urinary tract infection, acute. Present on admission. Active. -Unable to assess for UTI symptoms due to patient condition. Patient's brother present at time of admission and reports a history of UTIs. -UA consistent with infection, urine culture showing Escherichia coli -Cefepime discontinued in favor of IV Zosyn -Interventions discontinued due to comfort care status. Hypertension, chronic. Present on admission. Patient is currently hypotensive, with decreased heart rate -Held home antihypertensives: Carvedilol 3.125mg PO BID Digoxin 125mcg PO daily Furosemide 40mg PO daily Spironolactone 12.5mg PO daily History of dementia. Present on admission. Presumed stable. -Held donepezil Exam Test 12/02/16 16:50 12/02/16 17:34 12/02/16 20:04 12/03/16 02:00 Corrected White Blood Count 8.8th/mm3 (3.8-10.1) Nucleated Red Blood Cells 5/100 WBC (0-24) Urine Color Yellow (YELLOW) Urine Appearance Hazy (CLEAR,HAZY) Urine pH 5.5 (5.0-8.0) Urine Specific [place] 1.020 (1.003-1.035) Urine Protein 30mg/dL (NEG,TRACE) Urine Glucose (UA) Negativemg/dL (NEGATIVE) Urine Ketones Negativemg/dL (NEGATIVE) Urine Occult Blood Small (NEGATIVE) Urine Nitrite Negative (NEGATIVE) Urine Bilirubin Negative (NEGATIVE) Urine Urobilinogen Normalmg/dL (NORMAL) Urine Leukocyte Esterase Large (NEGATIVE) Urine RBC 0-2/hpf (0-2) Urine WBC 11-50/hpf (0-5) Urine Epithelial Cells None/hpf (NONE-MOD) Urine Crystals None seen (NONE SEEN) Urine Bacteria Many/hpf (NONE-FEW) Urine Hyaline Casts None/lpf (NONE) Urine Granular Casts None seen (NONE SEEN) Urine Waxy Casts None seen (NONE SEEN) Urine Red Blood Cell Casts None seen (NONE SEEN) Urine White Blood Cell Casts None seen (NONE SEEN) Urine Mucus None seen (None Seen) Urine Trichomonas None seen (NONE SEEN) Urine Yeast None (NONE SEEN) Urinalysis Comment None Urine Culture Reflexed Indicated Pro-B-Type Natriuretic Peptide > 27625kc/mL (0-738) Hemoglobin A1c 6.5% (4.8-5.6) Thyroid Stimulating Hormone (TSH) 1.110uIU/mL (0.450-4.500) Digoxin Level 0.8nG/mL (0.9-2.0) Test 12/03/16 10:29 12/03/16 15:43 12/04/16 05:00 12/06/16 03:40 Free Thyroxine 1.16ng/dL (0.82-1.77) Hold Blue Top Tube Received (Received) Hematology Comments Phosphorus Level 4.4mg/dL (2.5-4.9) Troponin T 0.076ug/L (0.0-0.011) Prealbumin 9mg/dL (20-40) Test 12/06/16 04:35 12/07/16 04:45 12/08/16 04:00 12/08/16 15:15 Neutrophils (%) (Auto) 85.5% (40-74) Lymphocytes (%) (Auto) 8.0% (14-46) Monocytes (%) (Auto) 4.9% (4-12) Eosinophils (%) (Auto) 1.1% (0-5) Basophils (%) (Auto) 0.1% (0-3) Lactic Acid Level 1.7mmol/L (0.4-2.0) Magnesium Level 2.4mg/dL (1.6-2.6) Procalcitonin 0.31ng/mL (0.00-0.08) White Blood Count 17.5th/mm3 (3.8-10.1) Red Blood Count 4.00mil/mm3 (3.90-5.20) Hemoglobin 9.5g/dL (12.0-15.6) Hematocrit 31.8% (35.0-46.0) Mean Corpuscular Volume 79.5fL (81-100) Mean Corpuscular Hemoglobin 23.8pg (27.0-35.0) Mean Corpuscular Hemoglobin Concent 29.9% (32.0-37.0) Red Cell Distribution Width 17.4% (12.3-15.4) Platelet Count 116bil/L (150-400) Prothrombin Time 16.2sec (8.1-12.5) Prothromb Time International Ratio 1.50ratio Sodium Level 143mEq/L (134-144) Potassium Level 3.6mEq/L (3.5-5.2) Chloride Level 114mEq/L (97-108) Carbon Dioxide Level 14mmol/L (18-29) Blood Urea Nitrogen 55mg/dL (8-27) Creatinine 2.25mg/dL (0.57-1.00) Estimat Glomerular Filtration Rate 30mL/min (>59) Glucose Level 247mg/dL (60-99) Calcium Level 8.2mg/dL (8.5-10.1) Total Bilirubin 0.6mg/dL (0.0-1.2) Aspartate Amino Transf (AST/SGOT) 33U/L (0-50) Alanine Aminotransferase (ALT/SGPT) 82U/L (0-32) Alkaline Phosphatase 83U/L (25-165) Total Protein 5.8g/dL (6.4-8.4) Albumin 3.0g/dL (3.4-5.0) Hold Purple Top Tube Received (Received) Hold [place] Top Tube Received (Received) Microbiology Results 12/02/16 Blood Culture- pending 12/02/16 Urine Culture- pending 12/02/16 MRSA screen- pending Time spent 35 minutes Attending Statement The patient was seen and examined together with Dr. Ledezma on 12/09/16 and I have added additional information to the note above. Horace Ledezma DO Dec 09, 2016 11:47 Heather Thacker DO Dec 09, 2016 16:04 Hold [place] Top Tube Received (Received) Microbiology Results 12/02/16 Blood Culture- pending 12/02/16 Urine Culture- pending 12/02/16 MRSA screen- pending Horace Ledezma DO Dec 09, 2016 11:47 (Received) Microbiology Results 12/02/16 Blood Culture- pending 12/02/16 Urine Culture- pending 12/02/16 MRSA screen- pending Horace Ledezma DO Dec 09, 2016 11:47
== END 2016-12-09 10:30 | disposition expired | DRG 208 ==
LOC: SED 16:09 → EDUNIT# 16:09 → EDBD 16:09 → CCU 18:19 → PCC 12-06 08:30 → MOC 12-08 21:10
PROVIDERS: ADMIT Internal Medicine; ATTEND Internal Medicine
PROC: 5A1945Z Respiratory Ventilation, 24-96 Consecutive Hours (ICD-10-PCS; principal; 2016-12-02)
PROC: 30233N1 Transfusion of Nonautologous Red Blood Cells into Peripheral Vein, Percutaneous Approach (ICD-10-PCS; 2016-12-02)
PROC: 4A033R1 Measurement of Arterial Saturation, Peripheral, Percutaneous Approach (ICD-10-PCS; 2016-12-02)
PROC: 05HM33Z Insertion of Infusion Device into Right Internal Jugular Vein, Percutaneous Approach (ICD-10-PCS; 2016-12-02)
PROC: B543ZZA Ultrasonography of Right Jugular Veins, Guidance (ICD-10-PCS; 2016-12-02)
DX: J96.01 Acute respiratory failure with hypoxia (principal); I50.23 Acute on chronic systolic (congestive) heart failure; R40.2311 Coma scale, best motor response, none, in the field [EMT or ambulance]; R40.2111 Coma scale, eyes open, never, in the field [EMT or ambulance]; R40.2211 Coma scale, best verbal response, none, in the field [EMT or ambulance]; E43 Unspecified severe protein-calorie malnutrition; R57.9 Shock, unspecified; N17.9 Acute kidney failure, unspecified; I13.0 Hypertensive heart and chronic kidney disease with heart failure and stage 1 through stage 4 chronic kidney disease, or unspecified chronic kidney disease; E87.2 Acidosis; N39.0 Urinary tract infection, site not specified; K80.00 Calculus of gallbladder with acute cholecystitis without obstruction; R78.81 Bacteremia; J96.02 Acute respiratory failure with hypercapnia; N18.3 Chronic kidney disease, stage 3 (moderate); E87.5 Hyperkalemia; I48.2 Chronic atrial fibrillation; Z79.01 Long term (current) use of anticoagulants; F03.90 Unspecified dementia, unspecified severity, without behavioral disturbance, psychotic disturbance, mood disturbance, and anxiety; Z51.5 Encounter for palliative care; B96.20 Unspecified Escherichia coli [E. coli] as the cause of diseases classified elsewhere; J44.9 Chronic obstructive pulmonary disease, unspecified; E11.22 Type 2 diabetes mellitus with diabetic chronic kidney disease; Z68.29 Body mass index [BMI] 29.0-29.9, adult